=== PATIENT | female | born 1950 | race Caucasian/White ===

== ENCOUNTER 2020-10-15 10:20 | Observation (INO) | payer MEDICARE, SELFPAY ==
[2020-10-15] VITALS (9 sets, daily range): BP systolic 105–140; BP diastolic 58–69; PULSE 65–79; RESP 14–18; TEMP 36–36.5; O2SAT 98–100; BMI 27.6
--- NOTE | 2020-10-15 11:26 | ECG_ITS ---
Measurements Intervals Zearing Rate: 65 P: 24 DC: 128 QRS: 39 QRSD: 117 T: 62 QT: 414 QTc: 433 Interpretive Statements SINUS RHYTHM INTRAVENTRICULAR CONDUCTION DELAY CONSIDER INFERIOR INFARCT, AGE INDETERMINATE ST-T WAVE ABNORMALITY IN LAT/HIGH LAT LEADS- CONSIDER ISCHEMIA BASELINE ARTIFACT- I, III, AVL ABNORMAL ECG Electronically Signed On 10-15-2020 18:58:59 CDT by Griffin Patel D.O.
[2020-10-15 11:54] LABS: Basophils Absolute Auto 0.1 K/mm3 (0.0-0.1); Basophils Percent Auto 0.8 % (0.2-1.2); Eosinophils Absolute Auto 0.1 K/mm3 (0-0.3); Eosinophils Percent Auto 1.9 % (0-4.4); Hematocrit 39.6 % (37.0-47.0); Hemoglobin 13.4 g/dL (12.0-15.0); Immature Granulocyte Absolute 0.01 K/mm3 (0.00-0.031); Immature Granulocyte Percent A 0.2 % (0-0.5); Immature Platelet Fraction Pct 10.3 % (0.9-11.2); Lymphocytes Absolute Auto 1.34 K/mm3 (0.9-3.2); Mean Corpuscular HGB Conc 33.8 g/dl (32-36); Mean Corpuscular Hemoglobin 30.3 pg (26-34); Mean Corpuscular Volume 89.6 fl (80-100); Mean Platelet Volume 11.6 fl (7.4-10.4); Monocytes Absolute Auto 0.4 K/mm3 (0.1-0.6); Monocytes Percent Auto 6.3 % (2.6-8.5); Neutrophils Absolute Auto 4.5 K/mm3 (1.3-6.7); Neutrophils Percent Auto 69.8 % (45.5-73.1); Platelet Count Result 138 k/mm3 (150-375); Red Blood Count 4.42 M/mm3 (4.2-5.4); Red Cell Distribution Width 12.3 % (11.5-14.5); White Blood Count 6.4 K/mm3 (4.5-10.0)
[2020-10-15 12:17] LABS: Alanine Aminotransferase 33 U/L (4-35); Albumin Level 3.8 g/dL (3.5-5.1); Alkaline Phosphatase 71 U/L (38-126); Anion Gap 7 mmol/L (8-16); Aspartate Amino Transferase 70 U/L (14-36); Bilirubin,Total 0.6 mg/dL (0.2-1.3); Blood Urea Nitrogen 9 mg/dL (7-17); Carbon Dioxide 36 mmol/L (22-30); Chloride 93 mmol/L (98-107); Estimated CRCL calculation 39 ml/min; Estimated Glomerular Filt Rate 55; Glucose 125 mg/dL (65-110); Potassium 2.1 mmol/L (3.4-5.0); Sodium 136 mmol/L (137-145)
--- NOTE | 2020-10-15 12:57 | ED.GENADULT ---
HPI - General Adult General Chief complaint: Recheck/Abnormal Lab/Rx Stated complaint: low K, 2.3 Time Seen by Provider: 10/15/20 12:48 History of Present Illness HPI narrative: Patient is a 70-year-old female who presents ER with weakness and abnormal labs. She has been feeling weak for the last 2 weeks. She gets occasional muscle cramps in her hands. She takes Lasix for CHF. She does not take any potassium at home. Outpatient labs 2 days ago showed a potassium level of 2.3. She was unable to make her way to the ER until today. She has no chest pain or chest pressure. No shortness of breath. No loss of consciousness or palpitations. Related Data Home Medications Medication Instructions Recorded Confirmed albuterol sulfate See Rx Instructions .ROUTE .COMPLEX 10/15/20 10/15/20 alprazolam 1 mg PO TID PRN 10/15/20 10/15/20 furosemide 40 mg PO DAILY 10/15/20 10/15/20 losartan 50 mg PO DAILY 10/15/20 10/15/20 metoprolol succinate 50 mg PO DAILY 10/15/20 10/15/20 tramadol 50 mg PO BID PRN 10/15/20 10/15/20 Allergies Allergy/AdvReac Type Severity Reaction Status Date / Time codeine Allergy Vomiting Verified 10/15/20 15:55 Sulfa (Sulfonamide Allergy Hives Verified 10/15/20 15:55 Antibiotics) Review of Systems Review of Systems: All systems reviewed & are unremarkable except as noted in HPI and below Constitutional: Constitutional: Denies chills, Reports fatigue, Denies fever(s) and Reports weakness ENT: Denies nasal congestion and Denies sore throat Cardiovascular: Cardiovascular: Denies chest pain, Denies rapid heart rate and Denies radiating jaw, neck or arm pain Respiratory: Respiratory: Denies cough and Denies dyspnea Gastrointestinal: Gastrointestinal: Denies abdominal pain, Denies diarrhea, Denies nausea and Denies vomiting Musculoskeletal: Musculoskeletal: Denies arthralgias, Denies joint swelling and Reports muscle cramps PMF Past Medical History Medical History (Updated 10/15/20 @ 23:16 by Isaac Butts MD) Anxiety 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 Bilateral cataracts Maturing Congestive heart failure COPD with chronic bronchitis and emphysema Degenerative disc disease History of anemia History of small bowel obstruction Hyperlipidemia Hypertension Tobacco abuse Surgical History Surgical History (Updated 10/15/20 @ 16:42 by Jennifer Mcekon NP) H/O bladder repair surgery X3 H/O colonoscopy with polypectomy The patient stated that she had 16 polyps removed at 1 time H/O hernia repair History of cholecystectomy History of colectomy History of hysterectomy Family History Family History (Updated 10/15/20 @ 16:44 by Jennifer Mckeon NP) Father History of open heart surgery Sibling History of open heart surgery Sibling H/O heart artery stent Pancreatic cancer Mother Heart disease CHF (congestive heart failure) COPD (chronic obstructive pulmonary disease) Social History Social History (Updated 10/15/20 @ 16:46 by Jennifer Mckeon NP) Social History: The patient continues to smoke a half a pack a cigarettes a day for 54 years. She lives with her brother and [id number]. The patient has 2 children. The patient is . The patient was essentially a homemaker. The patient smokes marijuana 2 to 3 times a week. The patient denies any alcohol or illicit drugs. The patient desires to be a full code and chooses her brother to be the durable power civil attorney for healthcare. The patient does not want to live in a vegetative state and she states her brother is aware of this. Smoking packs per day: 0.5 Smoking cigarettes per day: 10.0 Years smoked: 54 Smoking pack-years: 27.00 Smoking status: Current every day smoker Tobacco type: cigarettes Alcohol intake: never Substance use type: marijuana Other substance usage details: 2-3 times a week Spiritual care concerns: No Exam Narrative: GENERAL: Well-appearing, we
[2020-10-15] MEDS: POTASSIUM CHLORIDE 20 MEQ TABLET 40 MEQ PO (13:26)
[2020-10-15 15:14] LABS: Magnesium 1.9 mg/dL (1.6-2.3)
--- NOTE | 2020-10-15 15:40 | ADMGEN ---
This patient, Regina Mason, was admitted to Medical Room 250-01. Patient/family oriented to hospital policies and general routines including ID bracelet, bed and alarms, visiting hours, pain management, procedures, bathroom and other care routines, personal items, smoking policy, room service/diet, and visiting hours. Information on how to activate the Rapid Response Team has been discussed. Patient/Family are encouraged to report perceived risks to care and to ask questions if they do not understand what they are told or what they should do.
--- NOTE | 2020-10-15 16:35 | PM.IMHP ---
H&P: HPI History of Present Illness Date/Time: 10/15/20 16:35 this is a 70-year-old female patient who has a past medical history of having emphysema with COPD and congestive heart failure. The patient has been taking Lasix at home without any potassium supplement. The patient stated that she has been feeling weak for the last 2 weeks. She occasionally has some muscle cramps in her hands. The patient had labs drawn 2 days ago and it was showing that she had a level of 2.3 at that time. The patient was not able to make her way to the emergency room until today. The patient is not having any chest pain or chest pressure. She is not short of breath. She has no syncopal episode palpitations. Her potassium was found to be 2.1 and magnesium was 1.9. The patient was supplemented with potassium in the emergency room. The patient was admitted to medical telemetry and placed in observation status on the date of service of 10/15/2020. Chief Complaint: Abnormal lab Review of Systems Review of Systems: All systems reviewed & are unremarkable except as noted in HPI and below Constitutional: Constitutional: Reports as per HPI and Reports no additional constitutional complaints Eyes: Eyes: Reports as per HPI and Reports no additional eye complaints ENT: Reports system reviewed and no additional complaints, except as documented and Reports Normal hearing present Cardiovascular: Cardiovascular: Reports no additional cardiovascular complaints Respiratory: Respiratory: Reports no additional respiratory complaints and Reports no additional respiratory complaints Gastrointestinal: Gastrointestinal: Reports as per HPI and Reports no additional gastrointestinal complaints Musculoskeletal: Musculoskeletal: Reports no additional musculoskeletal complaints Integumentary/Breasts: Skin/Breast: Reports system reviewed and no additional complaints, except as docu and Reports as per HPI Neurologic: Reports system reviewed and no additional complaints, except as documented, Reports as per HPI and Reports Normal hearing present Psychiatric: Psychiatric: Reports no additional psychiatric complaints and Reports as per HPI Endocrine: Endocrine: Reports no additional endocrine complaints Hematologic/Lymphatic: Hematologic/Lymphatic: Reports no additional hematologic/lymphatic complaints Allergic/Immunologic: Allergic/Immunologic: Reports no additional allergic/immunologic complaints [facility] Past Medical History Medical History (Updated 10/15/20 @ 16:54 by Jennifer Mckeon NP) Anxiety 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 Bilateral cataracts Maturing Congestive heart failure COPD with chronic bronchitis and emphysema Degenerative disc disease History of anemia History of small bowel obstruction Hyperlipidemia Hypertension Tobacco abuse Surgical History Surgical History (Updated 10/15/20 @ 16:42 by Jennifer Mckeon NP) H/O bladder repair surgery X3 H/O colonoscopy with polypectomy The patient stated that she had 16 polyps removed at 1 time H/O hernia repair History of cholecystectomy History of colectomy History of hysterectomy Family History Family History (Updated 10/15/20 @ 16:44 by Jennifer Mckeon NP) Father History of open heart surgery Sibling History of open heart surgery Sibling H/O heart artery stent Pancreatic cancer Mother Heart disease CHF (congestive heart failure) COPD (chronic obstructive pulmonary disease) Social History Social History (Updated 10/15/20 @ 16:46 by Jennifer Mckeon NP) Social History: The patient continues to smoke a half a pack a cigarettes a day for 54 years. She lives with her brother and [id number]. The patient has 2 children. The patient is . The patient was essentially a homemaker. The patient smokes marijuana 2 to 3 times a week. The patient denies any alcohol or illicit drugs. The patient desires to be a full code and chooses her brother to be the dur
[2020-10-15] MEDS: POTASSIUM CHLORIDE 20 MEQ TABLET.ER PO (16:39)
[2020-10-15] MEDS: NICOTINE (*PBKC) 14 MG PATCH 1 PATCH TRANSDERM (17:25)
[2020-10-15 21:31] LABS: Anion Gap 7 mmol/L (8-16); Blood Urea Nitrogen 9 mg/dL (7-17); Calcium 8.6 mg/dL (8.4-10.2); Carbon Dioxide 35 mmol/L (22-30); Chloride 94 mmol/L (98-107); Estimated CRCL calculation 43 ml/min; Estimated Glomerular Filt Rate > 60; Glucose 158 mg/dL (65-110); Potassium 2.8 mmol/L (3.4-5.0); Sodium 136 mmol/L (137-145)
[2020-10-15] MEDS: POTASSIUM CHLORIDE 20 MEQ PACKET (FOR LIQUID) 80 MEQ PO (21:50)
[2020-10-16] VITALS (8 sets, daily range): BP systolic 131–157; BP diastolic 56–79; PULSE 70–85; RESP 16–18; TEMP 36–36.6; O2SAT 98–99
[2020-10-16 05:10] LABS: Basophils Percent Auto 0.4 % (0.2-1.2); Eosinophils Absolute Auto 0.1 K/mm3 (0-0.3); Eosinophils Percent Auto 1.9 % (0-4.4); Hematocrit 36.9 % (37.0-47.0); Hemoglobin 12.5 g/dL (12.0-15.0); Immature Granulocyte Absolute 0.01 K/mm3 (0.00-0.031); Immature Granulocyte Percent A 0.2 % (0-0.5); Immature Platelet Fraction Pct 7.7 % (0.9-11.2); Lymphocytes Percent Auto 27.8 % (18.3-44.2); Mean Corpuscular HGB Conc 33.9 g/dl (32-36); Mean Corpuscular Hemoglobin 30.9 pg (26-34); Mean Corpuscular Volume 91.1 fl (80-100); Mean Platelet Volume 11.7 fl (7.4-10.4); Monocytes Absolute Auto 0.3 K/mm3 (0.1-0.6); Monocytes Percent Auto 6.9 % (2.6-8.5); Neutrophils Absolute Auto 2.9 K/mm3 (1.3-6.7); Neutrophils Percent Auto 62.8 % (45.5-73.1); Platelet Count Result 120 k/mm3 (150-375); Red Blood Count 4.05 M/mm3 (4.2-5.4); Red Cell Distribution Width 12.4 % (11.5-14.5); White Blood Count 4.7 K/mm3 (4.5-10.0)
[2020-10-16 05:35] LABS: Lactic Acid Reflex 1.8 mmol/L (0.7-2.1)
[2020-10-16 05:39] LABS: Alanine Aminotransferase 27 U/L (4-35); Albumin Level 3.4 g/dL (3.5-5.1); Alkaline Phosphatase 65 U/L (38-126); Anion Gap 7 mmol/L (8-16); Aspartate Amino Transferase 54 U/L (14-36); Bilirubin,Total 0.5 mg/dL (0.2-1.3); Blood Urea Nitrogen 8 mg/dL (7-17); Carbon Dioxide 30 mmol/L (22-30); Chloride 103 mmol/L (98-107); Estimated CRCL calculation 43 ml/min; Estimated Glomerular Filt Rate > 60; Glucose 127 mg/dL (65-110); Magnesium 2.2 mg/dL (1.6-2.3); Potassium 3.7 mmol/L (3.4-5.0); Sodium 140 mmol/L (137-145)
[2020-10-16] MEDS: LOSARTAN POTASSIUM 50 MG TABLET PO (08:36)
[2020-10-16] MEDS: POTASSIUM CHLORIDE 20 MEQ TABLET.ER PO ×2 (08:36→16:43)
[2020-10-16] MEDS: METOPROLOL SUCCINATE EXT REL 50 MG TABCR PO (08:36)
[2020-10-16] MEDS: ENOXAPARIN 40 MG/0.4 ML SYRINGE SUB-Q (08:36)
[2020-10-16] MEDS: NICOTINE (*PBKC) 14 MG PATCH 1 PATCH TRANSDERM (09:28)
[2020-10-16 11:16] LABS: Free T4 Free Thyroxine Reflex 1.15 ng/dL (0.78-2.19)
--- NOTE | 2020-10-16 13:27 | PM.IMPN ---
Progress Note: A&P Assessment and Plan (1) Hypokalemia: Code(s): E87.6 - Hypokalemia Status: Acute Assessment and Plan: potassium replaced likely due to diuretics On supplementation Magnesium is normal Recheck labs in morning. Potassium was as low as 2.1 last week (2) COPD with chronic bronchitis and emphysema: Code(s): J44.9 - Chronic obstructive pulmonary disease, unspecified Status: Chronic Assessment and Plan: Continue with home medications. (3) Hypertension: Code(s): I10 - Essential (primary) hypertension Status: Chronic Assessment and Plan: Continue with home medications. (4) Hyperlipidemia: Code(s): E78.5 - Hyperlipidemia, unspecified Status: Chronic Assessment and Plan: Continue with home medications. (5) Congestive heart failure: Code(s): I50.9 - Heart failure, unspecified Status: Chronic Assessment and Plan: Continue with home medications. On Lasix 40 mg a day without potassium supplement (6) Degenerative disc disease: Status: Chronic Assessment and Plan: Continue with home medications. (7) Diarrhea: Code(s): R19.7 - Diarrhea, unspecified Status: Acute Assessment and Plan: will monitor if worsening will send stool studies Subjective Date/time seen: 10/16/20 13:27 Interval history: HPI: This is a 70-year-old female patient who has a past medical history of having emphysema with COPD and congestive heart failure. The patient has been taking Lasix at home without any potassium supplement. The patient stated that she has been feeling weak for the last 2 weeks. She occasionally has some muscle cramps in her hands. The patient had labs drawn 2 days ago and it was showing that she had a level of 2.3 at that time. The patient was not able to make her way to the emergency room until today. The patient is not having any chest pain or chest pressure. She is not short of breath. She has no syncopal episode palpitations. Her potassium was found to be 2.1 and magnesium was 1.9. The patient was supplemented with potassium in the emergency room. The patient was admitted to medical telemetry and placed in observation status on the date of service of 10/15/2020. Interval history:Complains of some crampy abdominal pain with diarrhea last evening had 2 episodes since then doing okay currently no fever chills she had been prescribed potassium in the past which she did not fill Review of Systems Review of Systems: All systems reviewed & are unremarkable except as noted in HPI and below Exam Narrative: GENERAL: Well-appearing, well-nourished, and in no acute distress. HEAD: Normocephalic, atraumatic. EYES: PERRL and EOMI. CHEST: Clear to auscultation. No respiratory distress. HEART: Regular rate and rhythm. Normal peripheral pulses. ABDOMEN: Soft, nontender, nondistended. EXTREMITIES: Normal range of motion. No edema. NEURO: Alert and oriented x3. PSYCH: Normal mood and affect. Objective Data Vital Signs Vital Signs: Vital Signs - 24 hr 10/15/20 15:40 10/15/20 16:13 10/15/20 20:00 Temperature 97.7 F Pulse Rate 76 70 79 Respiratory Rate 18 Blood Pressure 127/69 Pulse Oximetry 99 10/15/20 21:11 10/16/20 00:00 10/16/20 04:00 Temperature 96.8 F L Pulse Rate 77 75 70 Respiratory Rate 18 Blood Pressure 105/66 Pulse Oximetry 98 10/16/20 05:47 10/16/20 08:00 10/16/20 08:36 Temperature 97.8 F Pulse Rate 76 85 81 Respiratory Rate 16 Blood Pressure 157/56 H Pulse Oximetry 98 Intake/Output Intake/Output: Intake & Output 10/13/20 10/14/20 10/15/20 10/16/20 23:59 23:59 23:59 23:59 Intake Total 740 720 Output Total 0 Balance 740 720 Meds/Results Medications: Active Medications Generic Name Dose Route Start Last Admin Trade Name Freq PRN Reason Stop Dose Admin Acetaminophen 650 mg 10/15/20 14:16 Acetaminophen 32
[2020-10-16] MEDS: ACETAMINOPHEN 325 MG TABLET 650 MG PO (14:19)
[2020-10-16 19:22] LABS: Total Triiodothyronine (T3) 1.76 NG/ML (0.97-1.69)
[2020-10-16] MEDS: ONDANSETRON INJ 4 MG/2 ML VIAL IV PUSH (21:21)
[2020-10-17 06:00] VITALS: BP 113/68; PULSE 69; RESP 16; TEMP 36.6; O2SAT 97
[2020-10-17 06:14] LABS: Basophils Percent Auto 0.9 % (0.2-1.2); Eosinophils Absolute Auto 0.1 K/mm3 (0-0.3); Hematocrit 37.5 % (37.0-47.0); Hemoglobin 12.3 g/dL (12.0-15.0); Immature Granulocyte Absolute 0.02 K/mm3 (0.00-0.031); Immature Granulocyte Percent A 0.4 % (0-0.5); Lymphocytes Absolute Auto 1.23 K/mm3 (0.9-3.2); Lymphocytes Percent Auto 26.6 % (18.3-44.2); Mean Corpuscular HGB Conc 32.8 g/dl (32-36); Mean Corpuscular Hemoglobin 30.4 pg (26-34); Mean Corpuscular Volume 92.6 fl (80-100); Mean Platelet Volume 11.9 fl (7.4-10.4); Monocytes Absolute Auto 0.3 K/mm3 (0.1-0.6); Monocytes Percent Auto 6.7 % (2.6-8.5); Neutrophils Absolute Auto 2.9 K/mm3 (1.3-6.7); Neutrophils Percent Auto 62.4 % (45.5-73.1); Platelet Count Result 106 k/mm3 (150-375); Red Blood Count 4.05 M/mm3 (4.2-5.4); Red Cell Distribution Width 12.5 % (11.5-14.5); White Blood Count 4.6 K/mm3 (4.5-10.0)
[2020-10-17 06:25] LABS: Anion Gap 8 mmol/L (8-16); Blood Urea Nitrogen 7 mg/dL (7-17); Calcium 8.9 mg/dL (8.4-10.2); Carbon Dioxide 29 mmol/L (22-30); Chloride 102 mmol/L (98-107); Estimated CRCL calculation 43 ml/min; Estimated Glomerular Filt Rate > 60; Glucose 121 mg/dL (65-110); Potassium 3.6 mmol/L (3.4-5.0); Sodium 139 mmol/L (137-145)
[2020-10-17] MEDS: ENOXAPARIN 40 MG/0.4 ML SYRINGE SUB-Q (08:47)
[2020-10-17 08:48] VITALS: PULSE 76
[2020-10-17] MEDS: POTASSIUM CHLORIDE 20 MEQ TABLET.ER PO (08:48)
[2020-10-17] MEDS: METOPROLOL SUCCINATE EXT REL 50 MG TABCR PO (08:48)
[2020-10-17] MEDS: LOSARTAN POTASSIUM 50 MG TABLET PO (08:48)
[2020-10-17] MEDS: NICOTINE (*PBKC) 14 MG PATCH 1 PATCH TRANSDERM (08:49)
--- NOTE | 2020-10-17 09:06 | PM.DS ---
DS: Admitting Diagnosis Discharge Date 10/17/2020 Admitting Diagnosis hypokalemia DS: Discharge Diagnosis Discharge Diagnosis (1) Hypokalemia: Code(s): E87.6 - Hypokalemia Status: Acute Assessment and Plan: potassium depled likely due to diuretics On supplementation started. Magnesium is normal Potassium was as low as 2.1 last week discharge k level 3.6. will lower lasix to 20 m daliy . fu in a week with pcp for futher adjustment. labs in 1 weeks. (2) COPD with chronic bronchitis and emphysema: Code(s): J44.9 - Chronic obstructive pulmonary disease, unspecified Status: Chronic Assessment and Plan: Continue with home medications.not in exacerbation (3) Hypertension: Code(s): I10 - Essential (primary) hypertension Status: Chronic Assessment and Plan: Continue with home medications. (4) Hyperlipidemia: Code(s): E78.5 - Hyperlipidemia, unspecified Status: Chronic Assessment and Plan: Continue with home medications. (5) Congestive heart failure: Code(s): I50.9 - Heart failure, unspecified Status: Chronic Assessment and Plan: Continue with home medications. On Lasix 40 mg a day without potassium supplement no leg swellin evident. likely diastolic. echo report not available. will lower lasix to 20 m daily. further adjsutment as op basis as needed (6) Degenerative disc disease: Status: Chronic Assessment and Plan: Continue with home medications. (7) Diarrhea: Code(s): R19.7 - Diarrhea, unspecified Status: Acute Assessment and Plan: few episodes durig thospital stay, resolves spontaneously. (8) Thrombocytopenia: Code(s): D69.6 - Thrombocytopenia, unspecified Status: Acute Assessment and Plan: mild durig hospital stay. no bleeding. recheck in a week to ensure stability DS: Summary Hospital Course Hospital Course: see above Time Spent with Patient Time attestation: Total time spent providing and/or coordinating discharge services:35 mins Exam Narrative: GENERAL: Well-appearing, well-nourished, and in no acute distress. HEAD: Normocephalic, atraumatic. EYES: PERRL and EOMI. CHEST: Clear to auscultation. No respiratory distress. HEART: Regular rate and rhythm. Normal peripheral pulses. ABDOMEN: Soft, nontender, nondistended. EXTREMITIES: Normal range of motion. No edema. NEURO: Alert and oriented x3. PSYCH: Normal mood and affect. DS: Data Data Completed and Pending Labs on day of discharge: Labs from last 24 hours 10/17/20 10/17/20 10/16/20 04:34 04:34 04:42 WBC 4.6 RBC 4.05 L Hgb 12.3 Hct 37.5 MCV 92.6 MCH 30.4 MCHC 32.8 RDW 12.5 Plt Count 106 L MPV 11.9 H Immature Gran % (Auto) 0.4 Neut % (Auto) 62.4 Lymph % (Auto) 26.6 Garrett % (Auto) 6.7 Eos % (Auto) 3.0 Baso % (Auto) 0.9 Lymph # (Auto) 1.23 Garrett # (Auto) 0.3 Eos # (Auto) 0.1 Baso # (Auto) 0.0 Abs Immat Gran (auto) 0.02 Absolute Neuts (auto) 2.9 Absolute Nucleated RBC 0.0 Nucleated RBC % 0.0 Sodium 139 Potassium 3.6 Chloride 102 Carbon Dioxide 29 Anion Gap 8 BUN 7 Creatinine 0.90 Estim Creat Clear Calc 43 Estimated GFR > 60 Glucose 121 H Calcium 8.9 TSH (Reflex) Free T4 Total T3 1.76 H 10/16/20 10/16/20 04:42 04:42 WBC RBC Hgb Hct MCV MCH MCHC RDW Plt Count MPV Immature Gran % (Auto) Neut % (Auto) Lymph % (Auto) Garrett % (Auto) Eos % (Auto) Baso % (Auto) Lymph # (Auto) Garrett # (Auto) Eos # (Auto) Baso # (Auto) Abs Immat Gran (auto) Absolute Neuts (auto) Absolute Nucleated RBC Nucleated RBC % Sodium Potassium Chloride Carbon Dioxide Anion Gap BUN Creatinine Estim Creat Clear Calc Estimated GFR Glucose Calcium TSH (Reflex) 6.500 H Free T4 1.15 Total T3
== END 2020-10-17 11:39 | disposition home or self-care (01) ==
LOC: ANHED 12:48 → ANH2MED 16:31
PROVIDERS: Emergency Medicine; Nurse Practitioner; Admitting Provider Family Medicine; Emergency Provider Emergency Medicine; PCP Family Medicine; Visit Provider Internal Medicine
DX: E87.6 Hypokalemia (principal); R53.1 Weakness; I11.0 Hypertensive heart disease with heart failure; I50.9 Heart failure, unspecified; E78.5 Hyperlipidemia, unspecified; J44.9 Chronic obstructive pulmonary disease, unspecified; R19.7 Diarrhea, unspecified; D69.6 Thrombocytopenia, unspecified; F41.9 Anxiety disorder, unspecified; Z79.51 Long term (current) use of inhaled steroids; F17.210 Nicotine dependence, cigarettes, uncomplicated; F12.90 Cannabis use, unspecified, uncomplicated
CPT/HCPCS: 36415; 80048; 80053; 83605; 83735; 84439; 84443; 84480; 85025; 85055; 93005; 96365; 96366; 96372; 96375; 99285; A9270; G0378; J1650; J2405; J3480

== ENCOUNTER 2024-01-28 11:03 | Inpatient (IN) | payer MEDICARE, SELFPAY ==
--- NOTE | ~2024-01-28 | CT_ITS ---
EXAMINATION: CT abdomen pelvis wo con DATE: 02/07/2024 10:51 INDICATION: Abdominal distention. Perisigmoid abscess. TECHNIQUE: Computed tomography (CT) of the abdomen and pelvis was performed without intravenous contr ast. Automated exposure control and iterative reconstruction technique were employed. The dose-length product was 563.58 mGy-cm. COMPARISON: None FINDINGS: Small bilateral pleural effusions with dependent compressive atelectasis in the bilateral lower lobes . Calcified left lower lobe nodule consistent with old granulomatous disease. Heart size is normal. U nchanged small pericardial effusion. Atherosclerotic coronary artery calcifications. Nodular cirrhoti c liver with small amount of perihepatic ascites. Persistent small amount of pneumobilia likely relat ed to prior cholecystectomy sphincterotomy. 1.5 cm peripherally calcified lesion with low signal on p rior MRI at the gallbladder fossa which could represent a dropped gallstone, heterotopic ossicle or c alcified granuloma. Unchanged 1.2 cm cystic lesion at the body the pancreas. A couple small splenic c alcifications consistent with old granulomatous disease. Bilateral adrenal glands are normal. There a re bilateral renal cysts measuring up to 2.6 cm in the left kidney and including a 2 cm exophytic pro teinaceous/hemorrhagic cyst at the right kidney without significant difference in attenuation on the current noncontrast and prior postcontrast imaging but with typical T1 and T2 signal characteristics on prior MRI. There are several diverticula along the sigmoid colon. No surrounding inflammatory stra nding to suggest acute diverticulitis. An earlier perisigmoid abscess has resolved. No bowel obstruct ion. Bladder is normal. The uterus is not identified and has likely been surgically resected. Minimal additional free fluid in the deep pelvis. No free intraperitoneal gas. Small fat-containing right sp igelian hernia. No change in chronic T12 and L3 burst fractures and L5 compression fracture. IMPRESSION: 1. Interval resolution of the recent sigmoid diverticulitis as well as of the prior perisigmoid absce ss. No acute intra-abdominal/pelvic process. 2. Cirrhosis with minimal ascites. 3. Small bilateral pleural effusions with dependent compressive atelectasis in bilateral lower lobes. 4. Persistent small pericardial effusion. Reviewed, dictated and finalized at location B. OUND SALES REPRESENTATIVE IMPRESSION: 1. Interval resolution of the recent sigmoid diverticulitis as well as of the p rior perisigmoid abscess. No acute intra-abdominal/pelvic process. 2. Cirrhosis with minimal ascites. 3. Small bilateral pleural effusions with dependent compressive atelectasis in bilateral lower lobes. 4. Persistent small pericardial effusion.
--- NOTE | ~2024-01-28 | CT_ITS ---
EXAMINATION: CT abdomen pelvis wo/w con DATE: 02/04/2024 08:09 INDICATION: Right kidney mass. TECHNIQUE: Computed tomography (CT) of the abdomen and pelvis was performed without and with 100 mL O mnipaque 350 intravenous contrast. Automated exposure control and iterative reconstruction technique were employed. The dose-length product was 1057.26 mGy-cm. COMPARISON: CT abdomen and pelvis 01/28/2024 FINDINGS: The visualized portions of lung bases demonstrate mild atelectasis. A calcified left lung n odule is consistent with old granulomatous disease. There are small pleural effusions. The heart size is normal. There are coronary artery calcifications. There is a small pericardial effusion. The live r demonstrates a nodular surface contour, consistent with cirrhosis. Pneumobilia is noted, likely sec ondary to sphincterotomy. There is a gallstone in the gallbladder. There is a geographic area of subt le hypoenhancement in the spleen with interval improvement. There is a 14 mm cyst in the body of the pancreas. Right adrenal gland is normal. There is a 12 mm mass in left adrenal gland. There is a 2.3 cm hemorrhagic cyst in right kidney. There are cysts in the kidneys measuring up to 2.9 cm on the lef t. There is cortical thinning in the kidneys. There is calcified atherosclerosis of the aorta and man y of the other arteries. There is diverticulosis of the colon. The perisigmoid abscess has resolved. There is soft tissue attenuation connecting the sigmoid colon and vagina suspicious for fistula. Ther e are no dilated loops of bowel. The appendix is not visualized. There is a small sliding hiatal ken ia. There are no pathologically enlarged lymph nodes. There is a small volume of ascites. There is a right-sided spigelian hernia containing fat. There is a burst fracture of T12 with 1/5 loss of height . There is a chronic burst fracture of L3. There is a chronic compression fracture of L5. There is mi ld lumbar spondylosis. IMPRESSION: 1. 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 2. Cirrhosis of the liver. 3. 2.3 cm hemorrhagic cyst in right kidney. 4. Small pleural effusions. 5. 14 mm cystic lesion of the pancreas. The differential diagnosis includes pseudocyst, intraductal p apillary mucinous neoplasm (IPMN), mucinous cystic neoplasm (MCN), serous cystadenoma, and neuroendoc rine tumor. Consider abdomen MRI without and with contrast in 2 years. 6. Geographic area of subtle hypoenhancement in the spleen with interval improvement, consistent with subacute infarct. 7. Small volume of ascites. 8. Acute T12 burst fracture, new from 01/28/2024. 9. Worsened small pericardial effusion. Reviewed, dictated and finalized at location [] ER OPERATOR [employer]BESTOS SHINGLE IMPRESSION: 1. 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 2. Cirrhosis of the liver. 3. 2.3 cm hemorrhagic cyst in right kidney. 4. Small pleural effusions. 5. 14 mm cystic lesion of the pancreas. The differential diagnosis includes pse udocyst, intraductal papillary mucinous neoplasm (IPMN), mucinous cystic neopla sm (MCN), serous cystadenoma, and neuroendocrine tumor. Consider abdomen MRI wi thout and with contrast in 2 years. 6. Geographic area of subtle hypoenhancement in the spleen with interval improv ement, consistent with subacute infarct. 7. Small volume of ascites. 8. Acute T12 burst fracture, new from 01/28/2024. 9. Worsened small pericardial effusion.
--- NOTE | ~2024-01-28 | CT_ITS ---
EXAMINATION: CT abdomen pelvis w con DATE: 01/28/2024 13:30 INDICATION: Abdominal pain. Diarrhea. Fever. TECHNIQUE: Computed tomography (CT) of the abdomen and pelvis was performed with 100 mL Omnipaque 350 intravenous contrast. Automated exposure control and iterative reconstruction technique were employe d. The dose-length product was 327.53 mGy-cm. COMPARISON: None. FINDINGS: A calcified left lung nodule is consistent with old granulomatous disease. No pleural effus ion. The heart size is normal. There is a trace pericardial effusion. There are coronary artery calci fications. No pericardial effusion. The liver demonstrates surface nodularity, consistent with cirrho sis. There is an infarct in the spleen. Volume loss suggests this finding is subacute. There is a 12 mm cystic lesion in the pancreas. Right adrenal gland is normal. There is a 12 mm mass in left adrena l gland. There are cysts in the kidneys measuring up to 2.5 cm on the left. There is a 2.3 cm mass in right kidney measuring soft tissue attenuation. There are scattered diverticula in the colon. There is a 2.8 x 2.3 x 3.2 cm perisigmoid abscess abutting the vagina. The appendix is not visualized. Ther e is calcified atherosclerosis of the aorta and many of the other arteries. There is severe stenosis of right renal artery. There are no pathologically enlarged lymph nodes. There is no free intraperito juju fluid. There are chronic burst fractures of L3 and L5. IMPRESSION: 1. 2.8 x 2.3 x 3.2 cm perisigmoid abscess abutting the vagina. 2. Cirrhosis of the liver. 3. Splenic infarct, which may be subacute. 4. 12 mm cystic lesion of the pancreas. The differential diagnosis includes pseudocyst, intraductal p apillary mucinous neoplasm (IPMN), mucinous cystic neoplasm (MCN), serous cystadenoma, and neuroendoc rine tumor. Consider abdomen MRI without and with contrast in 2 years. 5. 2.3 cm right kidney mass, which may be a hemorrhagic cyst, but renal cell carcinoma cannot be excl uded. Abdomen CT without and with contrast is recommended. Reviewed, dictated and finalized at location A. ENSATION BUSINESS PARTNER IMPRESSION: 1. 2.8 x 2.3 x 3.2 cm perisigmoid abscess abutting the vagina. 2. Cirrhosis of the liver. 3. Splenic infarct, which may be subacute. 4. 12 mm cystic lesion of the pancreas. The differential diagnosis includes pse udocyst, intraductal papillary mucinous neoplasm (IPMN), mucinous cystic neopla sm (MCN), serous cystadenoma, and neuroendocrine tumor. Consider abdomen MRI wi thout and with contrast in 2 years. 5. 2.3 cm right kidney mass, which may be a hemorrhagic cyst, but renal cell ca rcinoma cannot be excluded. Abdomen CT without and with contrast is recommended .
--- NOTE | ~2024-01-28 | MR_ITS ---
EXAMINATION: MR abdomen wo con DATE: 02/03/2024 12:40 INDICATION: Pancreatic mass TECHNIQUE: Magnetic resonance imaging (MRI) of the abdomen was performed without intravenous contrast . Sequences included coronal T2-weighted SS-FSE, coronal T2-weighted FS SS-FSE, coronal T2-weighted F S FIESTA, axial T2-weighted FS FIESTA, axial T2-weighted FIESTA, sagittal T2-weighted SS-FSE, axial T 1-weighted dual-echo FSPGR, axial T2-weighted SS-FSE, axial T1-weighted LAVA, axial T2-weighted STIR FSE. Thick-slab T2-weighted FRFSE-XL images were obtained for magnetic resonance cholangiopancreatogr aphy (MRCP). Rotating maximum intensity projection 3-D reconstructions of the volumetric data were cr eated by the technologist. COMPARISON: CT dated 01/28/2024 FINDINGS: ABDOMEN MRI: Small bilateral posterior layering pleural effusions. Heart size is normal. Small pericardial effusio n with intermediate T1 and low T2 signal suggesting proteinaceous fluid. Nodular cirrhotic liver. Gal lbladder is not visualized and likely surgically absent. Spleen and bilateral adrenal glands are norm al. There are bilateral renal cysts the largest on the left measuring 2.5 cm and the largest on the r ight measuring 2.2 cm with low T2 and high T1 signal consistent with a complex proteinaceous/hemorrha gic cyst. Single appearing unilocular 1.3 cm cystic lesion at the body of the otherwise normal pancre as. Visualized portions of bowels are unremarkable. There is diffuse mesenteric, retroperitoneal and body wall edema with a small amount of ascites in the abdomen. Bladder is unremarkable in the coronal images. Chronic L3 and L5 burst fractures. There is an acute T12 superior endplate compression fract ure with linear fluid signal underlying the endplate with 10% central vertebral body height loss whic h is new since the CT from one week prior. ABDOMEN MRCP: Mild dilation of the common bile duct which measures up to 8 mm diameter which is within normal limit s post cholecystectomy. No intrahepatic ductal or ductal dilation. No intraluminal filling defects to suggest choledocholithiasis. IMPRESSION: 1. Cirrhosis. 2. Mild dilation of the common bile duct to 8 mm with no intrapedicular ductal dilation or choledocho lithiasis likely related to prior cholecystectomy. 3. 12 mm unilocular simple appearing cystic lesion at the body of the pancreas. The differential diag nosis includes pseudocyst, intraductal papillary mucinous neoplasm (IPMN) and significantly less like ly mucinous cystic neoplasm (MCN),, serous cystadenoma and neuroendocrine tumor. Correlate for histor y of pancreatitis. 4. Anasarca with small bilateral pleural effusions, small amount of ascites and excessive mesenteric, retroperitoneal and body wall edema. 5. Small likely complex pericardial effusion with increased T1 and decreased T2 signal consistent wit h either hemorrhagic or proteinaceous fluid. Correlate clinically for pericarditis. 6. Acute T12 superior endplate compression fracture with 10% central vertebral body height loss, new since CT from one week prior. 7. 2.2 cm right renal lesion with increased T1 and very low T2 signal which be most consistent with a proteinaceous/hemorrhagic cyst. Reviewed, dictated and finalized at location A. ING MACHINE OPERATOR IMPRESSION: 1. Cirrhosis. 2. Mild dilation of the common bile duct to 8 mm with no intrapedicular ductal dilation or choledocholithiasis likely related to prior cholecystectomy. 3. 12 mm unilocular simple appearing cystic lesion at the body of the pancreas. The differential diagnosis includes pseudocyst, intraductal papillary mucinous neoplasm (IPMN) and significantly less likely mucinous cystic neoplasm (MCN),, serous cystadenoma and neuroendocrine tumor. Correlate for history of pancreat itis. 4. Anasarca with small bilateral pleural effusions, small amount of ascites and excessive mesenteric, retroperitoneal and body wall edema. 5. Small likely complex pericardial effusion with increased T1 and decreased T2 signal consistent with either hemorrhagic or proteinaceous fluid. Correlate cl inically for pericarditis. 6. Acute T12 superior endplate compression fracture with 10% central vertebral body height loss, new since CT from one week prior. 7. 2.2 cm right renal lesion with increased T1 and very low T2 signal which be most consistent with a proteinaceous/hemorrhagic cyst.
[2024-01-28 11:23] VITALS: BP 144/69; PULSE 100; RESP 16; TEMP 36.6; O2SAT 100
[2024-01-28 11:51] LABS: Basophils Percent Auto 0.2 % (0.2-1.2); Hematocrit 35.3 % (37.0-47.0); Hemoglobin 11.9 g/dL (12.0-15.0); Immature Granulocyte Absolute 0.03 K/mm3 (0.00-0.031); Immature Granulocyte Percent A 0.3 % (0-0.5); Immature Platelet Fraction Pct 5.4 % (0.9-11.2); Lymphocytes Absolute Auto 0.95 K/mm3 (0.9-3.2); Lymphocytes Percent Auto 8.4 % (18.3-44.2); Mean Corpuscular HGB Conc 33.7 g/dl (32-36); Mean Corpuscular Volume 91.9 fl (80-100); Mean Platelet Volume 10.5 fl (7.4-10.4); Monocytes Absolute Auto 0.8 K/mm3 (0.1-0.6); Monocytes Percent Auto 6.9 % (2.6-8.5); Neutrophils Absolute Auto 9.6 K/mm3 (1.3-6.7); Neutrophils Percent Auto 84.2 % (45.5-73.1); Platelet Count Result 123 k/mm3 (150-375); Red Blood Count 3.84 M/mm3 (4.2-5.4); Red Cell Distribution Width 12.7 % (11.5-14.5); White Blood Count 11.3 K/mm3 (4.5-10.0)
[2024-01-28 12:00] LABS: Alanine Aminotransferase 13 U/L (6-35); Albumin Level 4.1 g/dL (3.5-5.1); Alkaline Phosphatase 65 U/L (38-126); Anion Gap 7 mmol/L (4-12); Aspartate Amino Transferase 20 U/L (14-36); Bilirubin,Total 1.3 mg/dL (0.2-1.3); Blood Urea Nitrogen 17 mg/dL (7-17); Calcium 9.3 mg/dL (8.4-10.2); Carbon Dioxide 23 mmol/L (22-30); Chloride 103 mmol/L (98-107); Estimated Glomerular Filt Rate 34; Glucose 127 mg/dL (65-110); Lipase 28 U/L (23-300); Potassium 4.4 mmol/L (3.4-5.0); Sodium 133 mmol/L (137-145)
--- NOTE | 2024-01-28 12:35 | ED.ABDPAIN ---
HPI - Abdominal Pain General Chief Complaint: Abdominal Pain <Milagros Patiño APRN - Last Filed: 01/28/24 12:37> Stated Complaint: abd pain <Milagros Paitño APRN - Last Filed: 01/28/24 12:37> Time Seen by Provider: 01/28/24 12:25 <Milagros Patiño APRN - Last Filed: 01/28/24 12:37> Focused HPI: Patient is a 73-year-old female who presents to the ER with complaints of diarrhea, lower abdominal pain, emesis, fever, chills, headache for past 5 days. She reports her T-max has been 101.2. Patient reports she has been taking ibuprofen to help treat her symptoms but temperature continues to go back up. She reports she is not able to keep anything down and has decreased urine output. Patient reports she has a history of CHF and COPD. She denies any chest pain, shortness of breath, back pain. GENERAL: Well-appearing, well-nourished, and in no acute distress. HEAD: Normocephalic, atraumatic. CHEST: Clear to auscultation. ?No respiratory distress. HEART: Regular rate and rhythm.? NEURO: ?Alert and oriented x3. Patient screened in triage and initial orders placed.? ?Additional care and disposition to be based upon?diagnostic testing and treatment. <Milagros Patiño APRN - Last Filed: 01/28/24 12:37> History of Present Illness HPI narrative: Agree with above <Julianna Quintanilla MD - Last Filed: 01/29/24 20:30> Related Data Home Medications: Home Medications ?Medication ?Instructions ?Recorded ?Confirmed ?Last Taken ?Type losartan 50 mg tablet 50 mg PO DAILY 10/15/20 01/28/24 01/28/24 History metoprolol succinate 50 mg 50 mg PO DAILY 10/15/20 01/28/24 01/28/24 History tablet,extended release 24 hr rosuvastatin 20 mg tablet 20 mg PO DAILY 01/28/24 01/28/24 Unknown History <Milagros Patiño APRN - Last Filed: 01/28/24 12:37> Allergies/Adverse Reactions: Allergies Allergy/AdvReac Type Severity Reaction Status Date / Time codeine Allergy Vomiting Verified 10/15/20 15:55 Sulfa (Sulfonamide Allergy Hives Verified 10/15/20 15:55 Antibiotics) <Milagros Patiño APRN - Last Filed: 01/28/24 12:37> Review of Systems Review of Systems: All systems reviewed & are unremarkable except as noted in HPI and below <Julianna Quintanilla MD - Last Filed: 01/29/24 20:30> [facility] Past Medical History Medical History: Medical History (Updated 01/29/24 @ 20:30 by Julianna Quintanilla MD) 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 History of anemia Tobacco abuse History of small bowel obstruction Degenerative disc disease Bilateral cataracts 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 Anxiety Congestive heart failure Hyperlipidemia Hypertension <Milagros Patiño, HEEL WASHER STRINGING MACHINE OPERATOR - Last Filed: 01/28/24 12:37> Surgical History Surgical History: Surgical History History of appendectomy H/O hernia repair H/O colonoscopy with polypectomy The patient stated that she had 16 polyps removed at 1 time H/O bladder repair surgery X3 History of colectomy History of hysterectomy History of cholecystectomy <Milagros Patiño APRN - Last Filed: 01/28/24 12:37> Family History Family History: Family History Father History of open heart surgery Sibling History of open heart surgery Sibling H/O heart artery stent Pancreatic cancer Mother Heart disease CHF (congestive heart failure) COPD (chronic obstructive pulmonary disease) <Milagros Patiño APRN - Last Filed: 01/28/24 12:37> Social History Social History: Social History Social History: The patient continues to smoke a half a pack a cigarettes a day for 54 years. She lives with her brother and [id number]. The patient has 2 children. The patient is . The patient was essentially a homemaker. The patient smokes marijuana 2 to 3 times a week. The patient denies any alcohol or illicit drugs. The patient desires to be a full code and chooses her brother to be the durable power collections attorney for healthcare. The patient does not want to live in a vegetative state and she states her brother is aware of this. Smoking packs per day: 0.5 Smoking cigarettes per day: 10.0 Years smoked: 50 Smoking pack-years: 25.00 Smoking status: Current every day smoker Tobacco type: cigarettes Alcohol intake: never Substance use type: marijuana Other substance usage details: 2-3 times a week Do You Feel Safe in your Home?: Yes Lack of Transportation: No Lack of Food: Never True Current Housing: I Have Housing Concerned About Future Housing: No Difficulty Paying Gas/Electric Bills: No Difficulty Paying for Meds: No Currently Unemployed: No Education: High School Diploma/GED Difficulty w/ Childcare or Family Care: No Spiritual care concerns: No <Milagros Patiño, RASHEEDA - Last Filed: 01/28/24 12:37> Exam Narrative: GENERAL: nontoxic, no acute distress, pleasant cooperative HEAD: Normocephalic, atraumatic. EYES: PERRLA and EOMI. ENT: grossly unremarkable NECK: Supple. CHEST: Clear to auscultation. No respiratory distress. HEART: Regular rate and rhythm ABDOMEN: Soft,+ left lower quadrant tenderness without guarding or rebound EXTREMITIES: Normal range of motion SKIN: Warm, dry, no rash. NEURO: No focal deficits. Alert and oriented x3. PSYCH: Normal mood and affect. <Julianna Quintanilla MD - Last Filed: 01/29/24 20:30> Course Vital Signs Vital signs: Vital Signs Temperature 97.9 F 01/28/24 11:23 Pulse Rate 100 01/28/24 11:23 Respiratory Rate 16 01/28/24 11:23 Blood Pressure 144/69 H 01/28/24 11:23 Pulse Oximetry 100 01/28/24 11:23 Temperature 98.1 F 01/29/24 14:00 Pulse Rate 82 01/29/24 16:04 Respiratory Rate 18 01/29/24 14:00 Blood Pressure 115/50 L 01/29/24 14:00 Pulse Oximetry 100 01/29/24 14:00 Oxygen Delivery Room Air 01/28/24 19:46 <Milagros Patiño, HEEL WASHER STRINGING MACHINE OPERATOR - Last Filed: 01/28/24 12:37> Vital Signs Temperature 97.9 F 01/28/24 11:23 Pulse Rate 100 01/28/24 11:23 Respiratory Rate 16 01/28/24 11:23 Blood Pressure 144/69 H 01/28/24 11:23 Pulse Oximetry 100 01/28/24 11:23 Temperature 98.1 F 01/29/24 14:00 Pulse Rate 82 01/29/24 16:04 Respiratory Rate 18 01/29/24 14:00 Blood Pressure 115/50 L 01/29/24 14:00 Pulse Oximetry 100 01/29/24 14:00 Oxygen Delivery Room Air 01/28/24 19:46 <Julianna Quintanilla MD - Last Filed: 01/29/24 20:30> MDM - Abdominal Pain MDM Narrative Medical decision making narrative: 73-year-old female presenting with left lower abdominal pain for about the last week associated with nausea and diarrhea. Vitals within normal limits. Blood work with a white count of 11.3. RUSSELL is noted. Fluids are ongoing.CT abdomen pelvis shows a perisigmoid abscess. IV Zosyn has been ordered. Blood cultures are pending. Spoke with surgery who will follow along. Spoke with medicine is accepted for admission. Patient is agreeable this plan. <Julianna Quintanilla MD - Last Filed: 01/29/24 20:30> Differential Diagnosis Differential diagnosis: Likely abdominal pain, constipation, diverticulitis, pancreatitis and small bowel obstruction <Julianna Quintanilla MD - Last Filed: 01/29/24 20:30> Medical Records Attestation: I reviewed the patient's medical records. <Julianna Quintanilla MD - Last Filed: 01/29/24 20:30> Lab Data Attestation: I reviewed the patient's lab results. <Julianna Quintanilla MD - Last Filed: 01/29/24 20:30> Result diagrams: 01/29/24 05:27 01/29/24 05:27 <Milagros Patiño APRN - Last Filed: 01/28/24 12:37> Labs: Lab Results 01/28/24 01/28/24 Range/Units 11:42 15:28 WBC 11.3 H (4.5-10.0) K/mm3 RBC 3.84 L (4.2-5.4) M/mm3 Hgb 11.9 L (12.0-15.0) g/dL Hct 35.3 L (37.0-47.0) % MCV 91.9 (80-100) fl MCH 31.0 (26-34) pg MCHC 33.7 (32-36) g/dl RDW 12.7 (11.5-14.5) % Plt Count 123 L (150-375) k/mm3 MPV 10.5 H (7.4-10.4) fl Immature Gran % (Auto) 0.3 (0-0.5) % Neut % (Auto) 84.2 H (45.5-73.1) % Lymph % (Auto) 8.4 L (18.3-44.2) % Perkins % (Auto) 6.9 (2.6-8.5) % Eos % (Auto) 0.0 (0-4.4) % Baso % (Auto) 0.2 (0.2-1.2) % Lymph # (Auto) 0.95 (0.9-3.2) K/mm3 Perkins # (Auto) 0.8 H (0.1-0.6) K/mm3 Eos # (Auto) 0.0 (0-0.3) K/mm3 Baso # (Auto) 0.0 (0.0-0.1) K/mm3 Abs Immat Gran (auto) 0.03 (0.00-0.031) K/mm3 Absolute Neuts (auto) 9.6 H (1.3-6.7) K/mm3 Absolute Nucleated RBC 0.000 (0.0-0.012) K/mm3 Nucleated RBC % 0.0 (0.0-0.2) % % Immature Plt Fraction 5.4 (0.9-11.2) % Sodium 133 L (137-145) mmol/L Potassium 4.4 (3.4-5.0) mmol/L Chloride 103 (98-107) mmol/L Carbon Dioxide 23 (22-30) mmol/L Anion Gap 7 (4-12) mmol/L BUN 17 D (7-17) mg/dL Creatinine 1.50 H (0.7-1.0) mg/dL Estim Creat Clear Calc Not Reportable Estimated GFR 34 L (59 - ) Glucose 127 H (65-110) mg/dL Calcium 9.3 (8.4-10.2) mg/dL Total Bilirubin 1.3 (0.2-1.3) mg/dL AST 20 (14-36) U/L ALT 13 (6-35) U/L Alkaline Phosphatase 65 (38-126) U/L Total Protein 8.0 (6.3-8.2) g/dL Albumin 4.1 (3.5-5.1) g/dL Lipase 28 (23-300) U/L Urine Color Yellow (Yellow) Urine Appearance Cloudy H (Clear) Urine pH 5.5 (5.0-9.0) Ur Specific [place] 1.040 H (1.001-1.035) Urine Protein 3+ H (Negative) mg/dL Urine Glucose (UA) Negative (Negative) mg/dL Urine Ketones Negative (Negative) mg/dL Ur Blood (Man) 3+ H (Negative) Urine Nitrate Positive H (Negative) Urine Bilirubin Negative (Negative) Urine Urobilinogen 0.2 (<2.0) mg/dL Add Ur Microanalysis Reviewed Leukocyte Esterase Rfl 1+ H (Negative) RM/UL Urine RBC 3-5 H (0-2) /hpf Urine WBC 11-20 H (0-3) /hpf Ur Squamous Epith Cells Few (Few) /hpf Urine Bacteria 4+ H /hpf Urine Casts 6-10 Granular Casts Present (None) /lpf Urine Mucus Present /lpf <Milagros Patiño, HEEL WASHER STRINGING MACHINE OPERATOR - Last Filed: 01/28/24 12:37> Lab Results 01/28/24 01/28/24 Range/Units 11:42 15:28 WBC 11.3 H (4.5-10.0) K/mm3 RBC 3.84 L (4.2-5.4) M/mm3 Hgb 11.9 L (12.0-15.0) g/dL Hct 35.3 L (37.0-47.0) % MCV 91.9 (80-100) fl MCH 31.0 (26-34) pg MCHC 33.7 (32-36) g/dl RDW 12.7 (11.5-14.5) % Plt Count 123 L (150-375) k/mm3 MPV 10.5 H (7.4-10.4) fl Immature Gran % (Auto) 0.3 (0-0.5) % Neut % (Auto) 84.2 H (45.5-73.1) % Lymph % (Auto) 8.4 L (18.3-44.2) % Perkins % (Auto) 6.9 (2.6-8.5) % Eos % (Auto) 0.0 (0-4.4) % Baso % (Auto) 0.2 (0.2-1.2) % Lymph # (Auto) 0.95 (0.9-3.2) K/mm3 Perkins # (Auto) 0.8 H (0.1-0.6) K/mm3 Eos # (Auto) 0.0 (0-0.3) K/mm3 Baso # (Auto) 0.0 (0.0-0.1) K/mm3 Abs Immat Gran (auto) 0.03 (0.00-0.031) K/mm3 Absolute Neuts (auto) 9.6 H (1.3-6.7) K/mm3 Absolute Nucleated RBC 0.000 (0.0-0.012) K/mm3 Nucleated RBC % 0.0 (0.0-0.2) % % Immature Plt Fraction 5.4 (0.9-11.2) % Sodium 133 L (137-145) mmol/L Potassium 4.4 (3.4-5.0) mmol/L Chloride 103 (98-107) mmol/L Carbon Dioxide 23 (22-30) mmol/L Anion Gap 7 (4-12) mmol/L BUN 17 D (7-17) mg/dL Creatinine 1.50 H (0.7-1.0) mg/dL Estim Creat Clear Calc Not Reportable Estimated GFR 34 L (59 - ) Glucose 127 H (65-110) mg/dL Calcium 9.3 (8.4-10.2) mg/dL Total Bilirubin 1.3 (0.2-1.3) mg/dL AST 20 (14-36) U/L ALT 13 (6-35) U/L Alkaline Phosphatase 65 (38-126) U/L Total Protein 8.0 (6.3-8.2) g/dL Albumin 4.1 (3.5-5.1) g/dL Lipase 28 (23-300) U/L Urine Color Yellow (Yellow) Urine Appearance Cloudy H (Clear) Urine pH 5.5 (5.0-9.0) Ur Specific Western 1.040 H (1.001-1.035) Urine Protein 3+ H (Negative) mg/dL Urine Glucose (UA) Negative (Negative) mg/dL Urine Ketones Negative (Negative) mg/dL Ur Blood (Man) 3+ H (Negative) Urine Nitrate Positive H (Negative) Urine Bilirubin Negative (Negative) Urine Urobilinogen 0.2 (<2.0) mg/dL Add Ur Microanalysis Reviewed Leukocyte Esterase Rfl 1+ H (Negative) RM/UL Urine RBC 3-5 H (0-2) /hpf Urine WBC 11-20 H (0-3) /hpf Ur Squamous Epith Cells Few (Few) /hpf Urine Bacteria 4+ H /hpf Urine Casts 6-10 Granular Casts Present (None) /lpf Urine Mucus Present /lpf <Julianna Quintanilla MD - Last Filed: 01/29/24 20:30> Imaging Data Radiologist's impression: ITS Impressions Abdomen/Pelvis CT 01/28/24 13:31 IMPRESSION: 1. 2.8 x 2.3 x 3.2 cm perisigmoid abscess abutting the vagina. 2. Cirrhosis of the liver. 3. Splenic infarct, which may be subacute. 4. 12 mm cystic lesion of the pancreas. The differential diagnosis includes pseudocyst, intraductal papillary mucinous neoplasm (IPMN), mucinous cystic neoplasm (MCN), serous cystadenoma, and neuroendocrine tumor. Consider abdomen MRI without and with contrast in 2 years. 5. 2.3 cm right kidney mass, which may be a hemorrhagic cyst, but renal cell carcinoma cannot be excluded. Abdomen CT without and with contrast is recommended. <Milagros Patiño APRN - Last Filed: 01/28/24 12:37> ITS Impressions Abdomen/Pelvis CT 01/28/24 13:31 IMPRESSION: 1. 2.8 x 2.3 x 3.2 cm perisigmoid abscess abutting the vagina. 2. Cirrhosis of the liver. 3. Splenic infarct, which may be subacute. 4. 12 mm cystic lesion of the pancreas. The differential diagnosis includes pseudocyst, intraductal papillary mucinous neoplasm (IPMN), mucinous cystic neoplasm (MCN), serous cystadenoma, and neuroendocrine tumor. Consider abdomen MRI without and with contrast in 2 years. 5. 2.3 cm right kidney mass, which may be a hemorrhagic cyst, but renal cell carcinoma cannot be excluded. Abdomen CT without and with contrast is recommended. <Julianna Quintanilla MD - Last Filed: 01/29/24 20:30> Critical Care Time Critical Care Time Critical Care Time: Yes <Julianna Quintanilla MD - Last Filed: 01/29/24 20:30> Total Critical Care Time: 34 <Julianna Quintanilla MD - Last Filed: 01/29/24 20:30> Discharge Plan Discharge Clinical Impression: Abscess of sigmoid colon, Splenic infarct, UTI (urinary tract infection), RUSSELL (acute kidney injury) <Milagros Patiño APRN - Last Filed: 01/28/24 12:37> Patient Disposition: Still a Patient <Milagros Patiño APRN - Last Filed: 01/28/24 12:37> Condition: Stable <Milagros Patiño APRN - Last Filed: 01/28/24 12:37>
[2024-01-28] MEDS: ONDANSETRON HCL ODT 4 MG TABLET PO (13:12)
[2024-01-28 15:41] VITALS: BP 135/67; PULSE 97; RESP 20; O2SAT 100
[2024-01-28 15:42] LABS: Add Urine Microscopic? YES; Appearance Urine Cloudy (Clear); Bacteria Urine 4+ /hpf; Bilirubin Urine Negative (Negative); Blood Urine 3+ (Negative); Color Urine Yellow (Yellow); Glucose Urine UA Negative (Negative); Granular Casts Urine Present /lpf; Ketones Urine Negative (Negative); Leukocyte Esterase Ur 1+ LEU/UL (Negative); Mucus Urine Present /lpf; Need Manual Microscopic Reviewed; Nitrate Urine Positive (Negative); Protein Urine 3+ mg/dL (Negative); Squamous Epithelial Cell Urine Few /hpf (Few); Urobilinogen Urine 0.2 mg/dL (<2.0); pH Urine 5.5 (5.0-9.0)
[2024-01-28] MEDS: SODIUM CHLORIDE 0.9% IV 500 ML 999 ML IV CONT (17:15)
[2024-01-28] MEDS: ONDANSETRON INJ 4 MG/2 ML VIAL IV PUSH ×2 (17:16→22:42)
[2024-01-28] MEDS: PIPERACILLIN/TAZ 4.5G/NS 100ML 4.5 GM/100 ML BAG IVPB (17:16)
[2024-01-28] MEDS: MORPHINE SULFATE (*CRX) 4 MG/ML INJ IV PUSH ×2 (17:17→20:10)
[2024-01-28 18:21] VITALS: BP 140/42; PULSE 91; RESP 20; TEMP 36.6; O2SAT 98
[2024-01-28 18:47] VITALS: BMI 27.1
--- NOTE | 2024-01-28 18:48 | ADMGEN ---
This patient, Regina Mason, was admitted to Medical Room 249-01. Patient/family oriented to hospital policies and general routines including ID bracelet, bed and alarms, visiting hours, pain management, procedures, bathroom and other care routines, personal items, smoking policy, room service/diet, and visiting hours. Information on how to activate the Rapid Response Team has been discussed. Patient/Family are encouraged to report perceived risks to care and to ask questions if they do not understand what they are told or what they should do.
[2024-01-28 19:46] VITALS: PULSE 91; RESP 20; O2SAT 98
[2024-01-28 20:00] VITALS: PULSE 80
[2024-01-28] MEDS: SODIUM CHLORIDE 0.9% IV 1,000 ML 75 ML IV CONT (20:13)
--- NOTE | 2024-01-28 21:40 | P.HP_ITS ---
H&P: HPI History of Present Illness Date/Time: 01/28/24 21:40 Chief Complaint: Lower abdominal pain Narrative: 18-year-old female past medical history of anemia, COPD, anxiety and congestive heart failure presents the hospital with acute lower abdominal pain. Patient states the pain has been going on for the past 5 days now and she is having frequent loose bowel movements. She states that she also has headache no fever which she has been trying to treat with Tylenol however that has not helped so she came to the hospital. In the ED she was found to have leukocytosis 11.3, creatinine of 1.5 baseline of 0.9, UA showed positive for nitrates and 1+ leukocyte esterase with 4+ bacteria. CT of the abdomen and pelvis show 2.8 x 2.3 x 3.2 cm perisigmoid abscess abutting the vagina. Liver cirrhosis, splenic infarct which may be subacute. 12 mm cystic lesion on the pancreas which could be cancerous recommendations for MRI with and without contrast in the next 2 years. A 2.3 cm right kidney mass which could be a hemorrhagic cyst but could also be cancerous. A CT of the abdomen with and without contrast is recommended however at this time the patient has acute RUSSELL so we will hold off NF her kidney infection improves we can re-scanned her. Review of Systems Review of Systems: 12 systems were reviewed and are negativ e except for as per HPI. 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 Anxiety Congestive heart failure Hyperlipidemia Hypertension Surgical History Surgical History H/O hernia repair H/O colonoscopy with polypectomy The patient stated that she had 16 polyps removed at 1 time H/O bladder repair surgery X3 History of colectomy History of hysterectomy History of cholecystectomy Family History Family History Father History of open heart surgery Sibling History of open heart surgery Sibling H/O heart artery stent Pancreatic cancer Mother Heart disease CHF (congestive heart failure) COPD (chronic obstructive pulmonary disease) Social History Social History Social History: The patient continues to smoke a half a pack a cigarettes a day for 54 years. She lives with her brother and [id number]. The patient has 2 children. The patient is . The patient was essentially a homemaker. The patient smokes marijuana 2 to 3 times a week. The patient denies any alcohol or illicit drugs. The patient desires to be a full code and chooses her brother to be the durable power supervisor painting for healthcare. The patient does not want to live in a vegetative state and she states her brother is aware of this. Smoking packs per day: 0.5 Smoking cigarettes per day: 10.0 Years smoked: 50 Smoking pack-years: 25.00 Smoking status: Current every day smoker Tobacco type: cigarettes Alcohol intake: never Substance use type: marijuana Other substance usage details: 2-3 times a week Do You Feel Safe in your Home?: Yes Lack of Transportation: No Lack of Food: Never True Current Housing: I Have Housing Concerned About Future Housing: No Difficulty Paying Gas/Electric Bills: No Difficulty Paying for Meds: No Currently Unemployed: No Education: High School Diploma/GED Difficulty w/ Childcare or Family Care: No Spiritual care concerns: No Meds Home Medications and Allergies Home Medications ?Medication ?Instructions ?Recorded ?Confirmed ?Type losartan 50 mg tablet 50 mg PO DAILY 10/15/20 01/28/24 History metoprolol succinate 50 mg 50 mg PO DAILY 10/15/20 01/28/24 History tablet,extended release 24 hr furosemide 40 mg tablet 20 mg (1/2 x 40 mg) PO DAILY #30 10/17/20 01/28/24 Rx tabs potassium chloride 20 mEq 20 meq PO BID #60 tabs 10/17/20 01/28/24 Rx tablet,extended release (K-Tab) rosuvastatin 20 mg tablet 20 mg PO DAILY 01/28/24 01/28/24 History Allergies Allergy/AdvReac Type Severity Reaction Status Date / Time codeine Allergy Vomiting Verified 10/15/20 15:55 Sulfa (Sulfonamide Allergy Hives Verified 10/15/20 15:55 Antibiotics) Vital Signs Vital Signs - 24 hr 01/28/24 11:23 01/28/24 15:41 01/28/24 18:21 Temperature 97.9 F 97.8 F Pulse Rate 100 97 91 Respiratory Rate 16 20 20 Blood Pressure 144/69 H 135/67 140/42 L Pulse Oximetry 100 100 98 Oxygen Delivery 01/28/24 19:46 Temperature Pulse Rate 91 Respiratory Rate 20 Blood Pressure Pulse Oximetry 98 Oxygen Delivery Room Air Exam Narrative: General: well appearing, appears stated age. HEENT: normocephalic, atraumatic. Mucous membranes moist. EOMI, PERRLA, bilateral sclera anicteric, no conjunctival injection. Neck supple without JVD, lymphadenopathy, or bruit. Respiratory: clear to ascultation bilaterally. No rales/rhonic/wheezes. Cardiovascular: Regular rate and rhythm, normal S1-S2 upon ascultation. No murmurs, rubs, or clicks. PMI is nondisplaced, capillary refill less than 3 second. Abdomen: Soft, round, no pulsatile masses, nondistended and tender to palpation. No rebound, no guarding. No CVA tenderness, no hepatosplenomegaly. Bowel sounds present to all four quadrants. No high pitch or tinkling sounds, resonant to percussion. Extremities: No cyanosis, clubbing, or edema present. Pulses are palpable 2/2. Active ROM to all four extremities. Neuro: Alert and orientated x 4. PERRLA. Cranial nerves 2-12 intact without focal deficit. Skin: Warm, dry, and intact, without rash, erythema, or lesion. Psych: pleasant, cooperative, normal speech, normal affect, no hallucinations, no dysarthia H&P: Results Labs Labs: Short CBC 01/28/24 Range/Units 11:42 WBC 11.3 H (4.5-10.0) K/mm3 Hgb 11.9 L (12.0-15.0) g/dL Hct 35.3 L (37.0-47.0) % Plt Count 123 L (150-375) k/mm3 [facility] 01/28/24 11:42 Sodium 133 L Potassium 4.4 Chloride 103 Carbon Dioxide 23 BUN 17 D Creatinine 1.50 H Glucose 127 H Calcium 9.3 Liver Function 01/28/24 Range/Units 11:42 Total Bilirubin 1.3 (0.2-1.3) mg/dL AST 20 (14-36) U/L ALT 13 (6-35) U/L Alkaline Phosphatase 65 (38-126) U/L Albumin 4.1 (3.5-5.1) g/dL Urine //24 Range/Units 15:28 Urine Color Yellow (Yellow) Urine Appearance Cloudy H (Clear) Urine pH 5.5 (5.0-9.0) Ur Specific [place] 1.040 H (1.001-1.035) Urine Protein 3+ H (Negative) mg/dL Urine Glucose (UA) Negative (Negative) mg/dL Assessment and Plan Assessment and plan (1) Abscess of sigmoid colon: Code(s): K63.0 - Abscess of intestine Status: Acute Assessment and Plan: Surgery consulted IR consulted for possible aspiration or drain IV Zosyn NPO (2) UTI (urinary tract infection): Code(s): N39.0 - Urinary tract infection, site not specified Status: Acute Assessment and Plan: IV Zosyn Gentle IV fluids for hydration (3) RUSSELL (acute kidney injury): Code(s): N17.9 - Acute kidney failure, unspecified Status: Acute Assessment and Plan: Baseline 0.9 Gentle IV hydration Repeat BMP in the morning (4) Hyponatremia: Code(s): E87.1 - Hypo-osmolality and hyponatremia Status: Acute Assessment and Plan: Gentle IV hydration Repeat BMP in morning (5) Splenic infarct: Code(s): D73.5 - Infarction of spleen Status: Acute Assessment and Plan: Unable to do anticoagulation at this time due to possible nephrotic hematoma and IR drain tomorrow Plan to rescan patient before she leaves hospital with contrast if kidney fu nction improves (6) Congestive heart failure: Code(s): I50.9 - Heart failure, unspecified Status: Chronic Assessment and Plan: Patient appears slightly dehydrated Will do gentle hydration overnight while and p.o. Careful monitoring for acute pulmonary edema (7) Lesion of pancreas: Code(s): K86.9 - Disease of pancreas, unspecified Status: Acute Assessment and Plan: 12 mm cystic lesion of the pancreas. The differential diagnosis includes pseudocyst, intraductal papillary mucinous neoplasm (IPMN), mucinous cystic neoplasm (MCN), serous cystadenoma, and neuroendocrine tumor. Consider abdomen MRI without and with contrast in 2 years. With patient having several abnormal findings on her CT is recommended that the patient follow-up with her primary care provider in the next month (8) Kidney mass: Code(s): N28.89 - Other specified disorders of kidney and ureter Status: Acute Assessment and Plan: 2.3 cm right kidney mass, which may be a hemorrhagic cyst, but renal cell carcinoma cannot be excluded. Abdomen CT without and with contrast is recommended. Patient currently has a RUSSELL with a creatinine 1.5 with a baseline of 0.9, will hold off on CT with contrast until after RUSSELL has resolved (9) Cirrhosis: Code(s): K74.60 - Unspecified cirrhosis of liver Status: Acute Assessment and Plan: AST and ALT are normal No obvious ascites on exam (10) Hypertension: Code(s): I10 - Essential (primary) hypertension Status: Chronic Assessment and Plan: BP on admission is 128/35 Holding antihypertensives due to dehydration Quality VTE Prophylaxis VTE prophylaxis: mechanical ordered If No VTE Prophylaxis Answer both mechanical and pharmacologic: Reason no pharmacologic proph: medical contraindication Hospitalist MIPS Advance Care Plan I have confirmed that the patient's Advanced Care Plan is present, code status is documented, or surrogate decision maker is listed in patient medical record.: Yes Medication Reconciliation I have utilized all available resources to obtain, update and review the patients current medications (includes all prescriptions, OTC, herbals, cannabis, and nutritional supplements).: Yes
[2024-01-28 22:00] VITALS: BP 128/35; PULSE 84; RESP 18; TEMP 37.4; O2SAT 99
[2024-01-29] VITALS (11 sets, daily range): BP systolic 100–125; BP diastolic 33–55; PULSE 72–93; RESP 18; TEMP 36.7–37.4; O2SAT 99–100
[2024-01-29] MEDS: PIPERACILLN/TAZ 3.375GM/NS50ML 3.375 GM/50 ML BAG IVPB ×5 (00:22→23:06)
[2024-01-29] MEDS: MORPHINE SULFATE (*CRX) 2 MG/ML INJ IV PUSH (02:09)
[2024-01-29 05:43] LABS: Basophils Percent Auto 0.2 % (0.2-1.2); Eosinophils Percent Auto 0.1 % (0-4.4); Hematocrit 29.4 % (37.0-47.0); Hemoglobin 9.7 g/dL (12.0-15.0); Immature Granulocyte Absolute 0.07 K/mm3 (0.00-0.031); Immature Granulocyte Percent A 0.6 % (0-0.5); Immature Platelet Fraction Pct 5.4 % (0.9-11.2); Lymphocytes Percent Auto 8.8 % (18.3-44.2); Mean Corpuscular Hemoglobin 30.7 pg (26-34); Mean Platelet Volume 10.9 fl (7.4-10.4); Monocytes Absolute Auto 0.9 K/mm3 (0.1-0.6); Monocytes Percent Auto 8.1 % (2.6-8.5); Neutrophils Absolute Auto 9.4 K/mm3 (1.3-6.7); Neutrophils Percent Auto 82.2 % (45.5-73.1); Platelet Count Result 122 k/mm3 (150-375); Red Blood Count 3.16 M/mm3 (4.2-5.4); Red Cell Distribution Width 12.7 % (11.5-14.5); White Blood Count 11.4 K/mm3 (4.5-10.0)
[2024-01-29] MEDS: HYDROcodone/acetaminophen (*CRX) 5-325 MG TABLET 1 TAB PO ×3 (05:47→13:54)
[2024-01-29 05:52] LABS: Partial Thromboplastin Time 29.7 Seconds (22.3-36.8)
[2024-01-29 05:55] LABS: Anion Gap 6 mmol/L (4-12); Blood Urea Nitrogen 19 mg/dL (7-17); Calcium 8.4 mg/dL (8.4-10.2); Carbon Dioxide 18 mmol/L (22-30); Chloride 110 mmol/L (98-107); Estimated CRCL calculation 24 ml/min; Estimated Glomerular Filt Rate 32; Glucose 104 mg/dL (65-110); Phosphorus 3.3 mg/dL (2.5-4.5); Sodium 134 mmol/L (137-145)
[2024-01-29] MEDS: ONDANSETRON INJ 4 MG/2 ML VIAL IV PUSH ×2 (08:31→19:35)
--- NOTE | 2024-01-29 08:49 | P.CONGS_ITS ---
Assessment and Plan Assessment and plan (1) Abscess of sigmoid colon: Code(s): K63.0 - Abscess of intestine Status: Acute Assessment and Plan: * This is the reason for our consultation. CT scan showing small perisigmoid abscess abutting the vagina. No vaginal drainage reported. There are multiple diverticula noted on CT, so abscess could be related to diverticulitis given her history of 1 week of lower abdominal pain. Her pain is improving and she has no peritoneal signs on exam. We would recommend to continue with conservative treatment with IV antibiotics. Could consider discussing the CT scan with Radiology to see if the abscess is amenable to drainage if leukocytosis persists or she clinically deteriorates, but she is currently improving with antibiotics. Will start a clear liquid diet and advance diet as tolerated. No indication for urgent surgical intervention, and patient has multiple comorbidities listed below that also make her a higher risk surgical candidate. (2) Splenic infarct: Code(s): D73.5 - Infarction of spleen Status: Acute Assessment and Plan: * CT can showed a splenic infarct that could be subacute. No CT evidence of abscess. Etiology unclear. EKG without a.fib, she is not on continuous telemetry monitoring. No known trauma or recent surgeries. She does have evidence of liver cirrhosis on CT, which was not known to the patient. Further workup/management per Hospitalist. Anticoagulation is okay from a surgical standpoint if indicated. She does not appear to be having any acute pain or tenderness on exam from the splenic infarct. (3) Cirrhosis: Code(s): K74.60 - Unspecified cirrhosis of liver Status: Acute Assessment and Plan: * New findings on CT. She denies any alcohol use. This would increase her risks for any abdominal surgery. (4) Lesion of pancreas: Code(s): K86.9 - Disease of pancreas, unspecified Status: Acute Assessment and Plan: * Cystic lesion measuring [address], radiologist recommending follow-up abdominal MRI with and without contrast in 2 years. (5) RUSSELL (acute kidney injury): Code(s): N17.9 - Acute kidney failure, unspecified Status: Acute Assessment and Plan: * Creatinine 1.6 without known chronic kidney disease. Could be related to hypovolemia/dehydration due to her vomiting and poor oral intake over the past few days. Continue IV fluids, trend labs. (6) Thrombocytopenia: Code(s): D69.6 - Thrombocytopenia, unspecified Status: Acute (7) UTI (urinary tract infection): Code(s): N39.0 - Urinary tract infection, site not specified Status: Acute Assessment and Plan: * UA suggests possible UTI. Denies any urinary symptoms. Urine culture pending. Currently on IV Zosyn due to perisigmoid abscess. (8) Kidney mass: Code(s): N28.89 - Other specified disorders of kidney and ureter Status: Acute Assessment and Plan: * CT showed a 2.3 cm right kidney mass and radiologist recommends abdominal CT with and without contrast. Management per hospitalist. (9) COPD with chronic bronchitis and emphysema: Code(s): J44.9 - Chronic obstructive pulmonary disease, unspecified Status: Chronic (10) Congestive heart failure: Code(s): I50.9 - Heart failure, unspecified Status: Chronic Plan I have discussed the patient's case and plan of care with Dr. Yusuf. Thank you for allowing us to see the patient in consultation and we will continue to follow along with you. History of Present Illness Consult details Consult date: 01/29/24 Reason for consult: other (Perisigmoid abscess) Requesting physician: Julianna Quintanilla MD Narrative: This is a 73-year-old woman with PMH of anemia, COPD, CHF, who we have been asked to see in surgical consultation for a perisigmoid abscess. She has been having mid to left lower quadrant abdominal pain over the past week. Her pain is progressively become worse. She reports that would come and go. She did not notice any specific aggravating factors. Over the past few days, she has had poor oral intake and developed nausea and vomiting. She also reports subjective fevers around 101 - 101.6? F that she was treating with ibuprofen home. No reported history of diverticulitis. Yesterday, she states she was unable to keep anything down even water. Therefore, she came into the ED for evaluation. [place] [address], hemoglobin 11.9, hematocrit 35, platelets a 924897, sodium 133, BUN 17, creatinine 1.5. CT scan of the abdomen and pelvis showed a 2.8 x 2.3 x 3.2 cm perisigmoid abscess abutting the vagina. She denies any vaginal drainage. UA suggests possible UTI. She denies any urinary symptoms other than slightly darker you yellow urine over the past day or to when she has not been able to tolerate much liquids. CT also showed changes of liver cirrhosis, splenic infarct which may be subacute, 12 mm cystic lesion of the pancreas, and a 2.3 cm right kidney mass. She was admitted to the hospitalist and started on IV Zosyn. She is currently NPO with IV fluids for hydration. She reports her abdominal pain is much better today and she is mostly only tender in the left lower quadrant. No previous episodes of known diverticulitis. She has had multiple colonoscopies in the past, with her last being about 6-7 years ago. She reports she was due for colonoscopy at 4 years, but has not followed up. She is a poor historian when closing her about her previous abdominal surgeries. In the chart, it mentions a colectomy, but she does not recall ever having a colon resection. She reports having multiple polyps removed during a colonoscopy, some of which were cancerous, but does not recall requiring a surgery. She additionally has had a total abdominal hysterectomy, open cholecystectomy and an open appendectomy. She has a scar on her right lower quadrant from excision of a lipoma. She also reports having a left lower quadrant ventral hernia repair around 2014 but cannot recall if they used mesh. Review of Systems 2 Review of Systems: All systems reviewed & are unremarkable except as noted in HPI and below 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 Anxiety Congestive heart failure Hyperlipidemia Hypertension Surgical History Surgical History History of appendectomy H/O hernia repair H/O colonoscopy with polypectomy The patient stated that she had 16 polyps removed at 1 time H/O bladder repair surgery X3 History of colectomy History of hysterectomy History of cholecystectomy Family History Family History Father History of open heart surgery Sibling History of open heart surgery Sibling H/O heart artery stent Pancreatic cancer Mother Heart disease CHF (congestive heart failure) COPD (chronic obstructive pulmonary disease) Social History Social History Social History: The patient continues to smoke a half a pack a cigarettes a day for 54 years. She lives with her brother and [id number]. The patient has 2 children. The patient is . The patient was essentially a homemaker. The patient smokes marijuana 2 to 3 times a week. The patient denies any alcohol or illicit drugs. The patient desires to be a full code and chooses her brother to be the durable power biological plant operator for healthcare. The patient does not want to live in a vegetative state and she states her brother is aware of this. Smoking packs per day: 0.5 Smoking cigarettes per day: 10.0 Years smoked: 50 Smoking pack-years: 25.00 Smoking status: Current every day smoker Tobacco type: cigarettes Alcohol intake: never Substance use type: marijuana Other substance usage details: 2-3 times a week Do You Feel Safe in your Home?: Yes Lack of Transportation: No Lack of Food: Never True Current Housing: I Have Housing Concerned About Future Housing: No Difficulty Paying Gas/Electric Bills: No Difficulty Paying for Meds: No Currently Unemployed: No Education: High School Diploma/GED Difficulty w/ Childcare or Family Care: No Spiritual care concerns: No Meds Home Medications and Allergies Home Medications ?Medication ?Instructions ?Recorded ?Confirmed ?Type losartan 50 mg tablet 50 mg PO DAILY 10/15/20 01/28/24 History metoprolol succinate 50 mg 50 mg PO DAILY 10/15/20 01/28/24 History tablet,extended release 24 hr furosemide 40 mg tablet 20 mg (1/2 x 40 mg) PO DAILY #30 10/17/20 01/28/24 Rx tabs potassium chloride 20 mEq 20 meq PO BID #60 tabs 10/17/20 01/28/24 Rx tablet,extended release (K-Tab) rosuvastatin 20 mg tablet 20 mg PO DAILY 01/28/24 01/28/24 History Allergies Allergy/AdvReac Type Severity Reaction Status Date / Time codeine Allergy Vomiting Verified 10/15/20 15:55 Sulfa (Sulfonamide Allergy Hives Verified 10/15/20 15:55 Antibiotics) Vital Signs Vital Signs - 24 hr 01/28/24 11:23 01/28/24 15:41 01/28/24 18:21 Temperature 97.9 F 97.8 F Pulse Rate 100 97 91 Respiratory Rate 16 20 20 Blood Pressure 144/69 H 135/67 140/42 L Pulse Oximetry 100 100 98 Oxygen Delivery 01/28/24 19:46 01/28/24 20:00 01/28/24 22:00 Temperature 99.3 F Pulse Rate 91 80 84 Respiratory Rate 20 18 Blood Pressure 128/35 L Pulse Oximetry 98 99 Oxygen Delivery Room Air 01/29/24 00:00 01/29/24 04:00 01/29/24 05:59 Temperature 99.3 F Pulse Rate 93 89 92 Respiratory Rate 18 Blood Pressure 114/33 L Pulse Oximetry 99 Oxygen Delivery Exam 2 Const: General: comfortable and no acute distress Nutritional Appearance: a verage body habitus Orientation/consciousness: patient oriented x3 HENMT: Head: normocephalic and atraumatic Ears: hearing grossly normal bilaterally Mouth: Yes moist mucous membranes Eyes: General: appearance normal, both eyes and all related structures P upils: Equal, round and reactive pupils present Neck: Neck: normal visual inspection and full ROM Resp: Effort & Inspection: no respiratory distress Auscultation: clear to auscultation bilaterally Cardio: Rate: regular rate Rhythm: regular rhythm Heart sounds: S1 normal heart sound present and S2 normal heart sound present Peripheral pulses: Peripheral pulses 2+ throughout GI: Inspection: non-distended, scar (LLQ, RLQ x 2, midline ) and no visible herniation GI Palp: Yes Soft to palpation, Yes Tenderness to palpation present (GI) (LLQ and suprapubic area, mild), No Guarding due to palpation present (GI), Yes No hepatosplenomegaly present and No Rebound tenderness present Auscultation: normal bowel sounds Skin: General skin exam: normal color Neuro: General: moves all extremities and no focal motor deficits Speech: n ormal speech Motor exam (neuro): 5/5 motor strength present throughout Extrem: General: normal to inspection and no edema Psych: Mental Status: mental status grossly normal Attitude: cooperative Insight: Good insight present (Psych) Judgement: Good judgement present (Psych) Results Labs 01/29/24 05:27 01/29/24 05:27 Labs: Abnormal lab results 01/28/24 01/28/24 01/29/24 Range/Units 11:42 15:28 05:27 WBC 11.3 H 11.4 H (4.5-10.0) K/mm3 RBC 3.84 L 3.16 L (4.2-5.4) M/mm3 Hgb 11.9 L 9.7 L (12.0-15.0) g/dL Hct 35.3 L 29.4 L (37.0-47.0) % Plt Count 123 L 122 L (150-375) k/mm3 MPV 10.5 H 10.9 H (7.4-10.4) fl Immature Gran % (Auto) 0.6 H (0-0.5) % Neut % (Auto) 84.2 H 82.2 H (45.5-73.1) % Lymph % (Auto) 8.4 L 8.8 L (18.3-44.2) % [place] # (Auto) 0.8 H 0.9 H (0.1-0.6) K/mm3 Abs Immat Gran (auto) 0.07 H (0.00-0.031) K/mm3 Absolute Neuts (auto) 9.6 H 9.4 H (1.3-6.7) K/mm3 Sodium 133 L 134 L (137-145) mmol/L Chloride 110 H (98-107) mmol/L Carbon Dioxide 18 L (22-30) mmol/L BUN 19 H (7-17) mg/dL Creatinine 1.50 H 1.60 H (0.7-1.0) mg/dL Estimated GFR 34 L 32 L (59 - ) Glucose 127 H (65-110) mg/dL Urine Appearance Cloudy H (Clear) Ur Specific [place] 1.040 H (1.001-1.035) Urine Protein 3+ H (Negative) mg/dL Ur Blood (Man) 3+ H (Negative) Urine Nitrate Positive H (Negative) Leukocyte Esterase Rfl 1+ H (Negative) RM/UL Urine RBC 3-5 H (0-2) /hpf Urine WBC 11-20 H (0-3) /hpf Urine Bacteria 4+ H /hpf Diabetes panel 01/28/24 01/29/24 Range/Units 11:42 05:27 Sodium 133 L 134 L (137-145) mmol/L Potassium 4.4 4.0 (3.4-5.0) mmol/L Chloride 103 110 H (98-107) mmol/L Carbon Dioxide 23 18 L (22-30) mmol/L BUN 17 D 19 H (7-17) mg/dL Creatinine 1.50 H 1.60 H (0.7-1.0) mg/dL Glucose 127 H 104 (65-110) mg/dL Calcium 9.3 8.4 (8.4-10.2) mg/dL AST 20 (14-36) U/L ALT 13 (6-35) U/L Alkaline Phosphatase 65 (38-126) U/L Total Protein 8.0 (6.3-8.2) g/dL Albumin 4.1 (3.5-5.1) g/dL Calcium panel 01/28/24 01/29/24 Range/Units 11:42 05:27 Calcium 9.3 8.4 (8.4-10.2) mg/dL Phosphorus 3.3 (2.5-4.5) mg/dL Albumin 4.1 (3.5-5.1) g/dL Pituitary panel 01/28/24 01/29/24 Range/Units 11:42 05:27 Sodium 133 L 134 L (137-145) mmol/L Potassium 4.4 4.0 (3.4-5.0) mmol/L Chloride 103 110 H (98-107) mmol/L Carbon Dioxide 23 18 L (22-30) mmol/L BUN 17 D 19 H (7-17) mg/dL Creatinine 1.50 H 1.60 H (0.7-1.0) mg/dL Glucose 127 H 104 (65-110) mg/dL Calcium 9.3 8.4 (8.4-10.2) mg/dL Adrenal panel 01/28/24 01/29/24 Range/Units 11:42 05:27 Sodium 133 L 134 L (137-145) mmol/L Potassium 4.4 4.0 (3.4-5.0) mmol/L Chloride 103 110 H (98-107) mmol/L Carbon Dioxide 23 18 L (22-30) mmol/L BUN 17 D 19 H (7-17) mg/dL Creatinine 1.50 H 1.60 H (0.7-1.0) mg/dL Glucose 127 H 104 (65-110) mg/dL Calcium 9.3 8.4 (8.4-10.2) mg/dL Total Bilirubin 1.3 (0.2-1.3) mg/dL AST 20 (14-36) U/L ALT 13 (6-35) U/L Alkaline Phosphatase 65 (38-126) U/L Total Protein 8.0 (6.3-8.2) g/dL Albumin 4.1 (3.5-5.1) g/dL All other labs normal. Imaging Additional studies: ITS Impressions Abdomen/Pelvis CT 01/28/24 13:31 IMPRESSION: 1. 2.8 x 2.3 x 3.2 cm perisigmoid abscess abutting the vagina. 2. Cirrhosis of the liver. 3. Splenic infarct, which may be subacute. 4. 12 mm cystic lesion of the pancreas. The differential diagnosis includes pseudocyst, intraductal papillary mucinous neoplasm (IPMN), mucinous cystic neoplasm (MCN), serous cystadenoma, and neuroendocrine tumor. Consider abdomen MRI without and with contrast in 2 years. 5. 2.3 cm right kidney mass, which may be a hemorrhagic cyst, but renal cell carcinoma cannot be excluded. Abdomen CT without and with contrast is recommended.
[2024-01-29] MEDS: ROSUVASTATIN 20 MG TABLET PO (08:54)
[2024-01-29] MEDS: POTASSIUM CHLORIDE 20 MEQ ER TABLET PO ×2 (08:54→16:03)
[2024-01-29] MEDS: NICOTINE (*PBKC) 14 MG PATCH 1 PATCH TRANSDERM (08:55)
[2024-01-29] MEDS: FUROSEMIDE 20 MG TABLET PO (09:26)
[2024-01-29] MEDS: METOPROLOL SUCCINATE EXT REL 50 MG TABCR PO (09:26)
[2024-01-29] MEDS: LOSARTAN POTASSIUM 50 MG TABLET PO (09:26)
--- NOTE | 2024-01-29 10:35 | P.PNIM_ITS ---
Progress Note: A&P Assessment and Plan (1) Abscess of sigmoid colon: Code(s): K63.0 - Abscess of intestine Status: Acute Assessment and Plan: * CT of the abdomen and pelvis showed a 2.8 x 2.3 x 3.2 cm perisigmoid abscess abutting the vagina * general surgery following, treating conservatively * continue Zosyn * blood cultures showing no growth to date on preliminary read (2) UTI (urinary tract infection): Code(s): N39.0 - Urinary tract infection, site not specified Status: Acute Assessment and Plan: * UA showing cloudy urine appearance, urine specific gravity 1.040, 3+ urine protein, 3+ urine blood, positive nitrate, 1+ leukocyte, 3-5 urine RBC, 11-20 urine WBC, 4+ urine bacteria. * Urine culture was obtained and pending * currently on Zosyn (3) RUSSELL (acute kidney injury): Code(s): N17.9 - Acute kidney failure, unspecified Status: Acute Assessment and Plan: * initial creatinine 1.50, now up to 1.60 * baseline creatinine 0.90 * continue trend * patient received IV contrast with CT of the abdomen and pelvis * hold nephrotoxic medication including losartan and Lasix * continue IV fluids at 75 ml per hour (4) Hyponatremia: Code(s): E87.1 - Hypo-osmolality and hyponatremia Status: Acute Assessment and Plan: * sodium 133 now up to 134 * continue to trend (5) Splenic infarct: Code(s): D73.5 - Infarction of spleen Status: Acute Assessment and Plan: * CT of the abdomen and pelvis showed splenic infarct which may be subacute * will need to be re-scanned (6) Congestive heart failure: Code(s): I50.9 - Heart failure, unspecified Status: Chronic Assessment and Plan: * no echo to review * continue metoprolol * hold losartan and Lasix considering RUSSELL (7) Lesion of pancreas: Code(s): K86.9 - Disease of pancreas, unspecified Status: Acute Assessment and Plan: * CT of the abdomen and pelvis showed a 12 mm cystic lesion of the pancreas * will need MRI with and without contrast in 2 years to re-evaluate (8) Kidney mass: Code(s): N28.89 - Other specified disorders of kidney and ureter Status: Acute Assessment and Plan: * CT of the abdomen and pelvis shown a 2.3 cm right kidney mass, which may be a hemorrhagic cyst, but renal cell carcinoma cannot be excluded. * will need a repeat Abdomen CT without and with contrast however we will have to wait until her RUSSELL resolve (9) Cirrhosis: Code(s): K74.60 - Unspecified cirrhosis of liver Status: Acute Assessment and Plan: * CT of the abdomen pelvis showing cirrhosis of the liver * liver enzymes normal * will check hepatitis panel (10) Hypertension: Code(s): I10 - Essential (primary) hypertension Status: Chronic Assessment and Plan: * blood pressure ranging 100/50 to 125/55 * losartan hold due to RUSSELL * continue metoprolol Time Spent With Patient Time with patient: Greater than 35 minutes Subjective Date/time seen: 01/29/24 10:35 Interval history: Interval history: This is a 73-year-old female who presented to the hospital on 01/28/2024 with complaints of lower abdominal pain. Workup in the hospital included an abdomen/pelvis CT which 2.8 x 2.3 x 3.2 cm vernon sigmoid abscess abutting the vagina, cirrhosis of the liver, splenic infarct which may be subacute, 12 mm cystic lesion of the pancreas, 2.3 cm right kidney mass which may be a cyst-- recommending further imaging. Initial labs showed a white blood cell count 11.3, hemoglobin 11.9, platelet count 123, sodium 133, creatinine 0.50, EGFR 34. UA was obtained which showed a cloudy urine appearance, urine specific gravity 1.040, 3+ urine protein, 3+ urine blood, positive nitrate, 1+ leukocytes, 3-5 urine RBC, 11-20 urine WBC, 4+ urine bacteria. Urine and blood cultures were obtained and are pending. EKG showed sinus rhythm with a rate of 65, QTC 433. She was given a dose of Zofran, morphine, 1 L of normal saline, and Zosyn while in the ED. General surgery was consulted. Subjective: Patient denies any fever, chills, nausea, vomiting, diarrhea, chest pain, or shortness of breath. Patient endorses perirectal pain that she rates 7/10. Labs and imaging reviewed. Review of Systems Review of Systems: All systems reviewed & are unremarkable except as noted in HPI and below Constitutional: Constitutional: Reports as per HPI and Reports no additional constitutional complaints Eyes: Eyes: Reports as per HPI and Reports no additional eye complaints ENT: Reports system reviewed and no additional complaints, except as documented and Reports as per HPI Cardiovascular: Cardiovascular: Reports as per HPI and Reports no additional cardiovascular complaints Respiratory: Respiratory: Reports as per HPI and Reports no additional respiratory complaints Gastrointestinal: Gastrointestinal: Reports as per HPI and Reports no additional gastrointestinal complaints Genitourinary: Genitourinary: Reports no additional female genitourinary complaints and Reports as per HPI Musculoskeletal: Musculoskeletal: Reports no additional musculoskeletal complaints and Reports as per HPI Integumentary/Breasts: Skin/Breast: Reports system reviewed and no additional complaints, except as docu and Reports as per HPI Neurologic: Reports system reviewed and no additional complaints, except as documented and Reports as per HPI Psychiatric: Psychiatric: Reports no additional psychiatric complaints and Reports as per HPI Exam Narrative: General: In no acute distress, well nourished Head: atraumatic, no encephalopathy Eyes:PERRLA, sclera clear ENT: moist mucous membranes, nasal passages clear Neck: supple, no JVD, no adenopathy, trachea midline Cardiac: Normal S1 and S2. No murmur, gallops or friction rubs, peripheral pulses intact. Respiratory: Lungs clear to auscultation, no adventitious lung sounds, currently on room air Gastrointestinal: soft, non-distended, non-tender, normoactive bowel sounds. : voiding without difficulty. Extremities: moves all extremities well, no edema, good ROM, strength 5/5 Skin: clean, dry, intact. No wounds or lesions. Neuro: Alert and oriented x4, cranial nerves intact, no neuro deficits. Psych: normal mood, normal affect, interactive Objective Data Vital Signs Vital Signs: Vital Signs - 24 hr 01/28/24 11:23 01/28/24 15:41 01/28/24 18:21 Temperature 97.9 F 97.8 F Pulse Rate 100 97 91 Respiratory Rate 16 20 20 Blood Pressure 144/69 H 135/67 140/42 L Pulse Oximetry 100 100 98 Oxygen Delivery 01/28/24 19:46 01/28/24 20:00 01/28/24 22:00 Temperature 99.3 F Pulse Rate 91 80 84 Respiratory Rate 20 18 Blood Pressure 128/35 L Pulse Oximetry 98 99 Oxygen Delivery Room Air 01/29/24 00:00 01/29/24 04:00 01/29/24 05:59 Temperature 99.3 F Pulse Rate 93 89 92 Respiratory Rate 18 Blood Pressure 114/33 L Pulse Oximetry 99 Oxygen Delivery 01/29/24 09:24 01/29/24 09:24 01/29/24 09:26 Temperature Pulse Rate 92 Respiratory Rate Blood Pressure 100/50 L 125/55 L Pulse Oximetry Oxygen Delivery Intake/Output Intake/Output: Intake & Output 01/26/24 01/27/24 01/28/24 01/29/24 23:59 23:59 23:59 23:59 Intake Total 600 100 Balance 600 100 Meds/Results Medications: Active Medications Generic Name Dose Route Start Last Admin Trade Name Freq PRN Reason Stop Dose Admin Hydrocodone Bitart/Acetaminophen 1 tab 01/28/24 23:15 01/29/24 09:38 Hydrocodone/Acetaminophen (*Crx) 5-325 Mg Tablet PO 1 tab Q4H PRN Administration Moderate Pain (4-6) Furosemide 20 mg 01/29/24 09:00 01/29/24 09:26 Furosemide 20 Mg Tablet PO 20 mg DAILY TERI Administration Sodium Chloride 1,000 mls @ 75 mls/hr 01/28/24 19:55 01/28/24 20:13 Normal Saline Iv IV CONT 75 mls/hr .[id number] TERI Administration Piperacillin/Tazobactam/Dextrose 3.375 gm in 50 mls @ 100 mls/hr 01/29/24 00:00 01/29/24 06:13 Zosyn 3.375 Gm/Ns 50 Ml IVPB Infused Q6H TERI Infusion Losartan Potassium 50 mg 01/29/24 09:00 01/29/24 09:26 Losartan Potassium 50 Mg Tablet PO 50 mg DAILY TERI Administration Metoprolol Succinate 50 mg 01/29/24 09:00 01/29/24 09:26 Metoprolol Succinate Ext Rel 50 Mg Tabcr PO 50 mg DAILY TERI Administration Morphine Sulfate 2 mg 01/28/24 23:15 01/29/24 02:09 Morphine Sulfate (*Crx) 2 Mg/Ml Inj IV PUSH 2 mg Q4H PRN Administration Pain Rated 7-10 Nicotine 1 patch 01/29/24 09:00 01/29/24 08:55 Nicotine (*Pbkc) 14 Mg Patch TRANSDERM 1 patch DAILY TERI Administration Ondansetron HCl 4 mg 01/28/24 22:26 01/29/24 08:31 Ondansetron Inj 4 Mg/2 Ml Vial IV PUSH 4 mg Q6H PRN Administration Nausea And Vomiting Potassium Chloride 20 meq 01/29/24 09:00 01/29/24 08:54 Potassium Chloride 20 Meq Er Tablet PO 20 meq BID TERI Administration Rosuvastatin Calcium 20 mg 01/29/24 09:00 01/29/24 08:54 Rosuvastatin 20 Mg Tablet PO 20 mg DAILY TERI Administration Radiology Results: ITS Impressions Abdomen/Pelvis CT 01/28/24 13:31 IMPRESSION: 1. 2.8 x 2.3 x 3.2 cm perisigmoid abscess abutting the vagina. 2. Cirrhosis of the liver. 3. Splenic infarct, which may be subacute. 4. 12 mm cystic lesion of the pancreas. The differential diagnosis includes pseudocyst, intraductal papillary mucinous neoplasm (IPMN), mucinous cystic neoplasm (MCN), serous cystadenoma, and neuroendocrine tumor. Consider abdomen MRI without and with contrast in 2 years. 5. 2.3 cm right kidney mass, which may be a hemorrhagic cyst, but renal cell carcinoma cannot be excluded. Abdomen CT without and with contrast is recommended. Labs Labs: Laboratory Results - last 24 hr 01/28/24 01/28/24 01/29/24 11:42 15:28 05:27 WBC 11.3 H 11.4 H RBC 3.84 L 3.16 L Hgb 11.9 L 9.7 L Hct 35.3 L 29.4 L MCV 91.9 93.0 MCH 31.0 30.7 MCHC 33.7 33.0 RDW 12.7 12.7 Plt Count 123 L 122 L MPV 10.5 H 10.9 H Immature Gran % (Auto) 0.3 0.6 H Neut % (Auto) 84.2 H 82.2 H Lymph % (Auto) 8.4 L 8.8 L [place] % (Auto) 6.9 8.1 Eos % (Auto) 0.0 0.1 Baso % (Auto) 0.2 0.2 Lymph # (Auto) 0.95 1.00 [place] # (Auto) 0.8 H 0.9 H Eos # (Auto) 0.0 0.0 Baso # (Auto) 0.0 0.0 Abs Immat Gran (auto) 0.03 0.07 H Absolute Neuts (auto) 9.6 H 9.4 H Absolute Nucleated RBC 0.000 0.000 Nucleated RBC % 0.0 0.0 % Immature Plt Fraction 5.4 5.4 APTT 29.7 Sodium 133 L 134 L Potassium 4.4 4.0 Chloride 103 110 H Carbon Dioxide 23 18 L Anion Gap 7 6 BUN 17 D 19 H Creatinine 1.50 H 1.60 H Estim Creat Clear Calc Not Reportable 24 Estimated GFR 34 L 32 L Glucose 127 H 104 Calcium 9.3 8.4 Phosphorus 3.3 Magnesium 2.0 Total Bilirubin 1.3 AST 20 ALT 13 Alkaline Phosphatase 65 Total Protein 8.0 Albumin 4.1 Lipase 28 Urine Color Yellow Urine Appearance Cloudy H Urine pH 5.5 Ur Specific [place] 1.040 H Urine Protein 3+ H Urine Glucose (UA) Negative Urine Ketones Negative Ur Blood (Man) 3+ H Urine Nitrate Positive H Urine Bilirubin Negative Urine Urobilinogen 0.2 Add Ur Microanalysis Reviewed Leukocyte Esterase Rfl 1+ H Urine RBC 3-5 H Urine WBC 11-20 H Ur Squamous Epith Cells Few Urine Bacteria 4+ H Urine Casts 6-10 Granular Casts Present Urine Mucus Present Quality VTE Prophylaxis VTE prophylaxis: mechanical ordered
[2024-01-29 11:41] LABS: Hepatitis B Surface Antigen Negative (Negative)
[2024-01-29 11:47] LABS: HAV RESULT Negative (Negative); Hepatitis B Core IgM Result Negative (Negative)
[2024-01-29] MEDS: SODIUM CHLORIDE 0.9% IV 1,000 ML 75 ML IV CONT (11:58)
[2024-01-29 11:59] LABS: Hepatitis C Virus Antibody Negative (Negative)
[2024-01-29] MEDS: diphenhydrAMINE HCl CAP 25 MG CAPSULE PO (16:03)
[2024-01-29] MEDS: HYDROcodone/acetaminophen (*CRX) 5-325 MG TABLET 2 TAB PO ×2 (18:04→23:59)
[2024-01-29 18:51] LABS: Toxigenic C. Diff POSITIVE (NEGATIVE)
[2024-01-29] MEDS: FIDAXOMICIN 200 MG TABLET PO (20:50)
[2024-01-30] VITALS (10 sets, daily range): BP systolic 125–151; BP diastolic 58–74; PULSE 67–78; RESP 16–18; TEMP 36.5–36.9; O2SAT 97–98
[2024-01-30] MEDS: SODIUM CHLORIDE 0.9% IV 1,000 ML 75 ML IV CONT ×2 (01:29→16:18)
[2024-01-30] MEDS: PIPERACILLN/TAZ 3.375GM/NS50ML 3.375 GM/50 ML BAG IVPB ×4 (05:08→23:53)
[2024-01-30 05:22] LABS: Hematocrit 29.5 % (37.0-47.0); Hemoglobin 9.6 g/dL (12.0-15.0); Immature Platelet Fraction Pct 6.9 % (0.9-11.2); Mean Corpuscular HGB Conc 32.5 g/dl (32-36); Mean Corpuscular Hemoglobin 30.9 pg (26-34); Mean Corpuscular Volume 94.9 fl (80-100); Mean Platelet Volume 11.1 fl (7.4-10.4); Platelet Count Result 115 k/mm3 (150-375); Red Blood Count 3.11 M/mm3 (4.2-5.4); Red Cell Distribution Width 12.8 % (11.5-14.5); White Blood Count 6.9 K/mm3 (4.5-10.0)
[2024-01-30 05:34] LABS: Anion Gap 3 mmol/L (4-12); Blood Urea Nitrogen 17 mg/dL (7-17); Calcium 7.8 mg/dL (8.4-10.2); Carbon Dioxide 22 mmol/L (22-30); Chloride 111 mmol/L (98-107); Estimated CRCL calculation 22 ml/min; Estimated Glomerular Filt Rate 30; Glucose 102 mg/dL (65-110); Potassium 3.8 mmol/L (3.4-5.0); Sodium 136 mmol/L (137-145)
--- NOTE | 2024-01-30 07:15 | P.PNIM_ITS ---
Progress Note: A&P Assessment and Plan (1) Abscess of sigmoid colon: Code(s): K63.0 - Abscess of intestine Status: Acute Assessment and Plan: * CT of the abdomen and pelvis showed a 2.8 x 2.3 x 3.2 cm perisigmoid abscess abutting the vagina * general surgery following, treating conservatively * continue Zosyn * blood cultures showing no growth to date on preliminary read (2) C. difficile colitis: Code(s): A04.72 - Enterocolitis due to Clostridium difficile, not specified as recurrent Status: Acute Assessment and Plan: * Found to be C diff positive * Started on Dificid (3) UTI (urinary tract infection): Code(s): N39.0 - Urinary tract infection, site not specified Status: Acute Assessment and Plan: * UA showing cloudy urine appearance, urine specific gravity 1.040, 3+ urine protein, 3+ urine blood, positive nitrate, 1+ leukocyte, 3-5 urine RBC, 11-20 urine WBC, 4+ urine bacteria. * Urine culture showing E coli on final read--Zosyn is susceptible * Continue Zosyn for now (4) RUSSELL (acute kidney injury): Code(s): N17.9 - Acute kidney failure, unspecified Status: Acute Assessment and Plan: * initial creatinine 1.50>1.60>1.70--trending upward * baseline creatinine 0.90 * continue trend * patient received IV contrast with CT of the abdomen and pelvis * hold nephrotoxic medication including losartan and Lasix * continue IV fluids at 75 ml per hour * will watch for another day. (5) Hyponatremia: Code(s): E87.1 - Hypo-osmolality and hyponatremia Status: Acute Assessment and Plan: * sodium 133>134>136 * continue to trend (6) Splenic infarct: Code(s): D73.5 - Infarction of spleen Status: Acute Assessment and Plan: * CT of the abdomen and pelvis showed splenic infarct which may be subacute * will need to be re-scanned once creatinine normalizes * Will get Hematology consult (7) Congestive heart failure: Code(s): I50.9 - Heart failure, unspecified Status: Chronic Assessment and Plan: * no echo to review * continue metoprolol * hold losartan and Lasix considering RUSSELL (8) Lesion of pancreas: Code(s): K86.9 - Disease of pancreas, unspecified Status: Acute Assessment and Plan: * CT of the abdomen and pelvis showed a 12 mm cystic lesion of the pancreas * will need MRI with and without contrast in 2 years to re-evaluate (9) Kidney mass: Code(s): N28.89 - Other specified disorders of kidney and ureter Status: Acute Assessment and Plan: * CT of the abdomen and pelvis shown a 2.3 cm right kidney mass, which may be a hemorrhagic cyst, but renal cell carcinoma cannot be excluded. * will need a repeat Abdomen CT without and with contrast however we will have to wait until her RUSSELL resolve (10) Cirrhosis: Code(s): K74.60 - Unspecified cirrhosis of liver Status: Acute Assessment and Plan: * CT of the abdomen pelvis showing cirrhosis of the liver * liver enzymes normal * Hepatitis panel negative (11) Hypertension: Code(s): I10 - Essential (primary) hypertension Status: Chronic Assessment and Plan: * blood pressure ranging 118/35-125/60 * losartan hold due to RUSSELL * continue metoprolol Time Spent With Patient Time with patient: Greater than 35 minutes Subjective Date/time seen: 01/30/24 07:15 Interval history: Interval history: This is a 73-year-old female who presented to the hospital on 01/28/2024 with complaints of lower abdominal pain. Workup in the hospital included an abdomen/pelvis CT which 2.8 x 2.3 x 3.2 cm vernon sigmoid abscess abutting the vagina, cirrhosis of the liver, splenic infarct which may be subacute, 12 mm cystic lesion of the pancreas, 2.3 cm right kidney mass which may be a cyst-- recommending further imaging. Initial labs showed a white blood cell count 11.3, hemoglobin 11.9, platelet count 123, sodium 133, creatinine 0.50, EGFR 34. UA was obtained which showed a cloudy urine appearance, urine specific gravity 1.040, 3+ urine protein, 3+ urine blood, positive nitrate, 1+ leukocytes, 3-5 urine RBC, 11-20 urine WBC, 4+ urine bacteria. Urine and blood cultures were obtained and are pending. EKG showed sinus rhythm with a rate of 65, QTC 433. She was given a dose of Zofran, morphine, 1 L of normal saline, and Zosyn while in the ED. General surgery was consulted. Subjective: Patient reporting abdominal pain and bloating today. She has been having boats of diarrhea that is uncontrolled. Stool was sent down to lab and she was found to be C diff positive. She was started on Difacid overnight. Labs reviewed. Review of Systems Review of Systems: 12 systems were reviewed and are negativ e except for as per HPI. All systems reviewed & are unremarkable except as noted in HPI and below Constitutional: Constitutional: Reports as per HPI and Reports no additional constitutional complaints Eyes: Eyes: Reports as per HPI and Reports no additional eye complaints ENT: Reports system reviewed and no additional complaints, except as documented and Reports as per HPI Cardiovascular: Cardiovascular: Reports as per HPI and Reports no additional cardiovascular complaints Respiratory: Respiratory: Reports as per HPI and Reports no additional respiratory complaints Gastrointestinal: Gastrointestinal: Reports as per HPI and Reports no additional gastrointestinal complaints Genitourinary: Genitourinary: Reports no additional female genitourinary c omplaints and Reports as per HPI Musculoskeletal: Musculoskeletal: Reports no additional musculoskeletal complaints and Reports as per HPI Integumentary/Breasts: Skin/Breast: Reports system reviewed and no additional complaints, except as docu and Reports as per HPI Neurologic: Reports system reviewed and no additional complaints, except as documented and Reports as per HPI Psychiatric: Psychiatric: Reports no additional psychiatric complaints and Reports as per HPI Exam Narrative: General: In no acute distress, well nourished Cardiac: Normal S1 and S2. No murmur, gallops or friction rubs, peripheral pulses intact. Respiratory: Lungs clear to auscultation, no adventitious lung sounds, currently on room air Gastrointestinal: soft, non-distended, non-tender, normoactive bowel sounds. : voiding without difficulty. Extremities: moves all extremities well, no edema Neuro: Alert and oriented x4 Objective Data Vital Signs Vital Signs: Vital Signs - 24 hr 01/29/24 08:03 01/29/24 09:24 01/29/24 09:24 Temperature Pulse Rate 80 Respiratory Rate Blood Pressure 100/50 L 125/55 L Pulse Oximetry Oxygen Delivery 01/29/24 09:26 01/29/24 12:01 01/29/24 14:00 Temperature 98.1 F Pulse Rate 92 82 73 Respiratory Rate 18 Blood Pressure 115/50 L Pulse Oximetry 100 Oxygen Delivery 01/29/24 16:04 01/29/24 20:00 01/29/24 20:00 Temperature Pulse Rate 82 72 Respiratory Rate Blood Pressure Pulse Oximetry Oxygen Delivery Room Air 01/29/24 22:00 01/30/24 00:00 01/30/24 04:00 Temperature 98.4 F Pulse Rate 78 73 69 Respiratory Rate 18 Blood Pressure 118/35 L Pulse Oximetry 99 Oxygen Delivery 01/30/24 06:00 Temperature 98.4 F Pulse Rate 75 Respiratory Rate 18 Blood Pressure 125/60 Pulse Oximetry 98 Oxygen Delivery Intake/Output Intake/Output: Intake & Output 01/27/24 01/28/24 01/29/24 01/30/24 23:59 23:59 23:59 23:59 Intake Total 600 3040 1050 Output Total 1200 Balance 600 1840 1050 Meds/Results Medications: Active Medications Generic Name Dose Route Start Last Admin Trade Name Freq PRN Reason Stop Dose Admin Hydrocodone Bitart/Acetaminophen 1 tab 01/28/24 23:15 01/29/24 13:54 Hydrocodone/Acetaminophen (*Crx) 5-325 Mg Tablet PO 1 tab Q4H PRN Administration Moderate Pain (4-6) Hydrocodone Bitart/Acetaminophen 2 tab 01/29/24 16:55 01/29/24 23:59 Hydrocodone/Acetaminophen (*Crx) 5-325 Mg Tablet PO 2 tab Q6H PRN Administration Pain Rated 7-10 Diphenhydramine HCl 25 mg 01/29/24 15:23 01/29/24 16:03 Diphenhydramine Hcl Cap 25 Mg Capsule PO 25 mg Q6H PRN Administration Itching Enoxaparin Sodium 30 mg 01/30/24 09:00 Enoxaparin 30 Mg/0.3 Ml Syringe SUB-Q DAILY TERI Fidaxomicin 200 mg 01/29/24 21:00 01/29/24 20:50 Fidaxomicin 200 Mg Tablet PO 02/08/24 20:59 200 mg Q12HR TERI Administration Furosemide 20 mg 01/29/24 09:00 01/29/24 09:26 Furosemide 20 Mg Tablet PO 20 mg DAILY TERI Administration Sodium Chloride 1,000 mls @ 75 mls/hr 01/28/24 19:55 01/30/24 01:29 Normal Saline Iv IV CONT 75 mls/hr .[id number] TERI Administration Piperacillin/Tazobactam/Dextrose 3.375 gm in 50 mls @ 100 mls/hr 01/29/24 00:00 01/30/24 05:38 Zosyn 3.375 Gm/Ns 50 Ml IVPB Infused Q6H TERI Infusion Losartan Potassium 50 mg 01/29/24 09:00 01/29/24 09:26 Losartan Potassium 50 Mg Tablet PO 50 mg DAILY TERI Administration Metoprolol Succinate 50 mg 01/29/24 09:00 01/29/24 09:26 Metoprolol Succinate Ext Rel 50 Mg Tabcr PO 50 mg DAILY TERI Administration Nicotine 1 patch 01/29/24 09:00 01/29/24 08:55 Nicotine (*Ruizkc) 14 Mg Patch TRANSDERM 1 patch DAILY TERI Administration Ondansetron HCl 4 mg 01/28/24 22:26 01/29/24 19:35 Ondansetron Inj 4 Mg/2 Ml Vial IV PUSH 4 mg Q6H PRN Administration Nausea And Vomiting Potassium Chloride 20 meq 01/29/24 09:00 01/29/24 16:03 Potassium Chloride 20 Meq Er Tablet PO 20 meq BID TERI Administration Rosuvastatin Calcium 20 mg 01/29/24 09:00 01/29/24 08:54 Rosuvastatin 20 Mg Tablet PO 20 mg DAILY TERI Administration Radiology Results: ITS Impressions Abdomen/Pelvis CT 01/28/24 13:31 IMPRESSION: 1. 2.8 x 2.3 x 3.2 cm perisigmoid abscess abutting the vagina. 2. Cirrhosis of the liver. 3. Splenic infarct, which may be subacute. 4. 12 mm cystic lesion of the pancreas. The differential diagnosis includes pseudocyst, intraductal papillary mucinous neoplasm (IPMN), mucinous cystic neoplasm (MCN), serous cystadenoma, and neuroendocrine tumor. Consider abdomen MRI without and with contrast in 2 years. 5. 2.3 cm right kidney mass, which may be a hemorrhagic cyst, but renal cell carcinoma cannot be excluded. Abdomen CT without and with contrast is recommended. Labs Labs: Laboratory Results - last 24 hr 01/29/24 01/29/24 01/30/24 05:27 17:51 04:56 WBC 6.9 RBC 3.11 L Hgb 9.6 L Hct 29.5 L MCV 94.9 MCH 30.9 MCHC 32.5 RDW 12.8 Plt Count 115 L MPV 11.1 H % Immature Plt Fraction 6.9 Sodium 136 L Potassium 3.8 Chloride 111 H Carbon Dioxide 22 Anion Gap 3 L BUN 17 Creatinine 1.70 H Estim Creat Clear Calc 22 Estimated GFR 30 L Glucose 102 Calcium 7.8 L C. difficile (PCR) Positive A* Hepatitis A IgM Ab Negative Hep Bs Antigen Negative Hep B Core IgM Ab Negative Hepatitis C Ab Screen Negative Quality VTE Prophylaxis VTE prophylaxis: mechanical ordered
[2024-01-30] MEDS: HYDROcodone/acetaminophen (*CRX) 5-325 MG TABLET 2 TAB PO ×2 (08:00→14:23)
[2024-01-30] MEDS: POTASSIUM CHLORIDE 20 MEQ ER TABLET PO ×2 (08:02→16:19)
[2024-01-30] MEDS: METOPROLOL SUCCINATE EXT REL 50 MG TABCR PO (08:02)
[2024-01-30] MEDS: ONDANSETRON INJ 4 MG/2 ML VIAL IV PUSH ×3 (08:02→20:11)
[2024-01-30] MEDS: FIDAXOMICIN 200 MG TABLET PO ×2 (08:03→20:11)
[2024-01-30] MEDS: NICOTINE (*PBKC) 14 MG PATCH 1 PATCH TRANSDERM (08:03)
[2024-01-30] MEDS: ROSUVASTATIN 20 MG TABLET PO (08:03)
[2024-01-30] MEDS: ENOXAPARIN 30 MG/0.3 ML SYRINGE SUB-Q (08:04)
--- NOTE | 2024-01-30 12:26 | P.PNGS_ITS ---
Progress Note: A&P Assessment and Plan (1) Abscess of sigmoid colon: Code(s): K63.0 - Abscess of intestine Status: Acute Assessment and Plan: * Continue full liquids today. A little more distended today, might need to consider KUB tomorrow if not improving. * Continue IV antibiotics. WBC now normal. (2) Cirrhosis: Code(s): K74.60 - Unspecified cirrhosis of liver Status: Acute (3) Splenic infarct: Code(s): D73.5 - Infarction of spleen Status: Acute (4) RUSSELL (acute kidney injury): Code(s): N17.9 - Acute kidney failure, unspecified Status: Acute (5) UTI (urinary tract infection): Code(s): N39.0 - Urinary tract infection, site not specified Status: Acute Subjective Subjective Date/Time Seen: 01/30/24 12:26 Interval history: Patient feeling a little more bloated today. Having some loose stools. Tolerating full liquids but not able to eat much because of bloating. Lower abdominal pain improving. Exam GI: Inspection: distended GI Palp: Yes Soft to palpation, Yes Tenderness to palpation present (GI) (upper abdominal), No Guarding due to palpation present (GI) and No Rebound tenderness present Objective Data Vital Signs Vital Signs: Vital Signs - 24 hr 01/29/24 14:00 01/29/24 16:04 01/29/24 20:00 Temperature 98.1 F Pulse Rate 73 82 Respiratory Rate 18 Blood Pressure 115/50 L Pulse Oximetry 100 Oxygen Delivery Room Air 01/29/24 20:00 01/29/24 22:00 01/30/24 00:00 Temperature 98.4 F Pulse Rate 72 78 73 Respiratory Rate 18 Blood Pressure 118/35 L Pulse Oximetry 99 Oxygen Delivery 01/30/24 04:00 01/30/24 06:00 01/30/24 08:00 Temperature 98.4 F Pulse Rate 69 75 Respiratory Rate 18 Blood Pressure 125/60 Pulse Oximetry 98 Oxygen Delivery Room Air 01/30/24 08:02 Temperature Pulse Rate 67 Respiratory Rate Blood Pressure Pulse Oximetry Oxygen Delivery Intake/Output Intake/Output: Intake & Output 01/27/24 01/28/24 01/29/24 01/30/24 23:59 23:59 23:59 23:59 Intake Total 600 3040 1410 Output Total 1200 Balance 600 1840 1410 Meds/Results Medications: Active Medications Generic Name Dose Route Start Last Admin Trade Name Freq PRN Reason Stop Dose Admin Hydrocodone Bitart/Acetaminophen 1 tab 01/28/24 23:15 01/29/24 13:54 Hydrocodone/Acetaminophen (*Crx) 5-325 Mg Tablet PO 1 tab Q4H PRN Administration Moderate Pain (4-6) Hydrocodone Bitart/Acetaminophen 2 tab 01/29/24 16:55 01/30/24 08:00 Hydrocodone/Acetaminophen (*Crx) 5-325 Mg Tablet PO 2 tab Q6H PRN Administration Pain Rated 7-10 Diphenhydramine HCl 25 mg 01/29/24 15:23 01/29/24 16:03 Diphenhydramine Hcl Cap 25 Mg Capsule PO 25 mg Q6H PRN Administration Itching Enoxaparin Sodium 30 mg 01/30/24 09:00 01/30/24 08:04 Enoxaparin 30 Mg/0.3 Ml Syringe SUB-Q 30 mg DAILY TERI Administration Fidaxomicin 200 mg 01/29/24 21:00 01/30/24 08:03 Fidaxomicin 200 Mg Tablet PO 02/08/24 20:59 200 mg Q12HR TERI Administration Furosemide 20 mg 01/29/24 09:00 01/29/24 09:26 Furosemide 20 Mg Tablet PO 20 mg DAILY TERI Administration Sodium Chloride 1,000 mls @ 75 mls/hr 01/28/24 19:55 01/30/24 01:29 Normal Saline Iv IV CONT 75 mls/hr .[id number] TERI Administration Piperacillin/Tazobactam/Dextrose 3.375 gm in 50 mls @ 100 mls/hr 01/29/24 00:00 01/30/24 11:49 Zosyn 3.375 Gm/Ns 50 Ml IVPB 100 mls/hr Q6H TERI Administration Losartan Potassium 50 mg 01/29/24 09:00 01/29/24 09:26 Losartan Potassium 50 Mg Tablet PO 50 mg DAILY TERI Administration Metoprolol Succinate 50 mg 01/29/24 09:00 01/30/24 08:02 Metoprolol Succinate Ext Rel 50 Mg Tabcr PO 50 mg DAILY TERI Administration Nicotine 1 patch 01/29/24 09:00 01/30/24 08:03 Nicotine (*Pbkc) 14 Mg Patch TRANSDERM 1 patch DAILY TERI Administration Ondansetron HCl 4 mg 01/28/24 22:26 01/30/24 08:02 Ondansetron Inj 4 Mg/2 Ml Vial IV PUSH 4 mg Q6H PRN Administration Nausea And Vomiting Potassium Chloride 20 meq 01/29/24 09:00 01/30/24 08:02 Potassium Chloride 20 Meq Er Tablet PO 20 meq BID TERI Administration Rosuvastatin Calcium 20 mg 01/29/24 09:00 01/30/24 08:03 Rosuvastatin 20 Mg Tablet PO 20 mg DAILY TERI Administration Radiology Results: ITS Impressions Abdomen/Pelvis CT 01/28/24 13:31 IMPRESSION: 1. 2.8 x 2.3 x 3.2 cm perisigmoid abscess abutting the vagina. 2. Cirrhosis of the liver. 3. Splenic infarct, which may be subacute. 4. 12 mm cystic lesion of the pancreas. The differential diagnosis includes pseudocyst, intraductal papillary mucinous neoplasm (IPMN), mucinous cystic neoplasm (MCN), serous cystadenoma, and neuroendocrine tumor. Consider abdomen MRI without and with contrast in 2 years. 5. 2.3 cm right kidney mass, which may be a hemorrhagic cyst, but renal cell carcinoma cannot be excluded. Abdomen CT without and with contrast is recommended. Labs Labs: Laboratory Results - last 24 hr 01/29/24 01/30/24 17:51 04:56 WBC 6.9 RBC 3.11 L Hgb 9.6 L Hct 29.5 L MCV 94.9 MCH 30.9 MCHC 32.5 RDW 12.8 Plt Count 115 L MPV 11.1 H % Immature Plt Fraction 6.9 Sodium 136 L Potassium 3.8 Chloride 111 H Carbon Dioxide 22 Anion Gap 3 L BUN 17 Creatinine 1.70 H Estim Creat Clear Calc 22 Estimated GFR 30 L Glucose 102 Calcium 7.8 L C. difficile (PCR) Positive A*
[2024-01-30] MEDS: HYDROcodone/acetaminophen (*CRX) 5-325 MG TABLET 1 TAB PO (20:11)
[2024-01-31] VITALS (10 sets, daily range): BP systolic 140–167; BP diastolic 52–67; PULSE 72–86; RESP 16–17; TEMP 36.4–36.5; O2SAT 97–98
[2024-01-31] MEDS: ONDANSETRON INJ 4 MG/2 ML VIAL IV PUSH ×4 (04:23→22:38)
[2024-01-31] MEDS: HYDROcodone/acetaminophen (*CRX) 5-325 MG TABLET 2 TAB PO ×4 (04:23→22:38)
[2024-01-31] MEDS: PIPERACILLN/TAZ 3.375GM/NS50ML 3.375 GM/50 ML BAG IVPB ×4 (06:01→22:36)
[2024-01-31] MEDS: SODIUM CHLORIDE 0.9% IV 1,000 ML 75 ML IV CONT ×2 (06:03→20:44)
[2024-01-31] MEDS: ROSUVASTATIN 20 MG TABLET PO (09:23)
[2024-01-31] MEDS: FIDAXOMICIN 200 MG TABLET PO ×2 (09:23→20:44)
[2024-01-31] MEDS: ENOXAPARIN 30 MG/0.3 ML SYRINGE SUB-Q (09:23)
[2024-01-31] MEDS: NICOTINE (*PBKC) 14 MG PATCH 1 PATCH TRANSDERM (09:23)
[2024-01-31] MEDS: METOPROLOL SUCCINATE EXT REL 50 MG TABCR PO (09:23)
[2024-01-31] MEDS: POTASSIUM CHLORIDE 20 MEQ ER TABLET PO ×2 (09:24→16:37)
--- NOTE | 2024-01-31 11:23 | P.PNIM_ITS ---
Progress Note: A&P Assessment and Plan (1) Abscess of sigmoid colon: Code(s): K63.0 - Abscess of intestine Status: Acute Assessment and Plan: * CT of the abdomen and pelvis showed a 2.8 x 2.3 x 3.2 cm perisigmoid abscess abutting the vagina * general surgery following, treating conservatively * continue Zosyn * blood cultures showing no growth to date on preliminary read 01/30 * General surgery following * Increase to full liquid diet today * Blood cultures still showing no growth to date on preliminary read * Continue Zosyn (2) C. difficile colitis: Code(s): A04.72 - Enterocolitis due to Clostridium difficile, not specified as recurrent Status: Acute Assessment and Plan: * Found to be C diff positive * Started on Dificid 01/30 * continue Dificid * Still having BM's however more loose than watery now (3) UTI (urinary tract infection): Code(s): N39.0 - Urinary tract infection, site not specified Status: Acute Assessment and Plan: * UA showing cloudy urine appearance, urine specific gravity 1.040, 3+ urine protein, 3+ urine blood, positive nitrate, 1+ leukocyte, 3-5 urine RBC, 11-20 urine WBC, 4+ urine bacteria. * Urine culture showing E coli on final read--Zosyn is susceptible * Continue Zosyn for now (4) RUSSELL (acute kidney injury): Code(s): N17.9 - Acute kidney failure, unspecified Status: Acute Assessment and Plan: * initial creatinine 1.50>1.60>1.70> 1.40--trending down today * baseline creatinine 0.90 * continue trend * patient received IV contrast with CT of the abdomen and pelvis * hold nephrotoxic medication including losartan and Lasix * continue IV fluids at 75 ml per hour (5) Hyponatremia: Code(s): E87.1 - Hypo-osmolality and hyponatremia Status: Acute Assessment and Plan: * sodium 133>134>136>136 * continue to trend (6) Splenic infarct: Code(s): D73.5 - Infarction of spleen Status: Acute Assessment and Plan: * CT of the abdomen and pelvis showed splenic infarct which may be subacute * will need to be re-scanned once creatinine normalizes * Will get Hematology consult (7) Congestive heart failure: Code(s): I50.9 - Heart failure, unspecified Status: Chronic Assessment and Plan: * no echo to review * continue metoprolol * hold losartan and Lasix considering RUSSELL (8) Lesion of pancreas: Code(s): K86.9 - Disease of pancreas, unspecified Status: Acute Assessment and Plan: * CT of the abdomen and pelvis showed a 12 mm cystic lesion of the pancreas * will need MRI with and without contrast in 2 years to re-evaluate (9) Kidney mass: Code(s): N28.89 - Other specified disorders of kidney and ureter Status: Acute Assessment and Plan: * CT of the abdomen and pelvis shown a 2.3 cm right kidney mass, which may be a hemorrhagic cyst, but renal cell carcinoma cannot be excluded. * will need a repeat Abdomen CT without and with contrast however we will have to wait until her RUSSELL resolve (10) Cirrhosis: Code(s): K74.60 - Unspecified cirrhosis of liver Status: Acute Assessment and Plan: * CT of the abdomen pelvis showing cirrhosis of the liver * liver enzymes normal * Hepatitis panel negative (11) Hypertension: Code(s): I10 - Essential (primary) hypertension Status: Chronic Assessment and Plan: * blood pressure ranging 118/35-125/60 * losartan hold due to RUSSELL * continue metoprolol Subjective Date/time seen: 01/31/24 11:23 Interval history: Interval history: This is a 73-year-old female who presented to the hospital on 01/28/2024 with complaints of lower abdominal pain. Workup in the hospital included an abdomen/pelvis CT which 2.8 x 2.3 x 3.2 cm vernon sigmoid abscess abutting the vagina, cirrhosis of the liver, splenic infarct which may be subacute, 12 mm cystic lesion of the pancreas, 2.3 cm right kidney mass which may be a cyst-- recommending further imaging. Initial labs showed a white blood cell count 11.3, hemoglobin 11.9, platelet count 123, sodium 133, creatinine 0.50, EGFR 34. UA was obtained which showed a cloudy urine appearance, urine specific gravity 1.040, 3+ urine protein, 3+ urine blood, positive nitrate, 1+ leukocytes, 3-5 urine RBC, 11-20 urine WBC, 4+ urine bacteria. Urine and blood cultures were obtained and are pending. EKG showed sinus rhythm with a rate of 65, QTC 433. She was given a dose of Zofran, morphine, 1 L of normal saline, and Zosyn while in the ED. General surgery was consulted. Subjective: Patient still reporting bloating however pain is more controlled today. She states she is still having multiple bowel movements but it has thickened up in consistency since starting the Dificid. Labs reviewed. Review of Systems Review of Systems: All systems reviewed & are unremarkable except as noted in HPI and below Constitutional: Constitutional: Reports as per HPI and Reports no additional constitutional complaints Eyes: Eyes: Reports as per HPI and Reports no additional eye complaints ENT: Reports system reviewed and no additional complaints, except as documented and Reports as per HPI Cardiovascular: Cardiovascular: Reports as per HPI and Reports no additional cardiovascular complaints Respiratory: Respiratory: Reports as per HPI and Reports no additional respiratory complaints Gastrointestinal: Gastrointestinal: Reports as per HPI and Reports no additional gastrointestinal complaints Genitourinary: Genitourinary: Reports no additional female genitourinary complaints and Reports as per HPI Musculoskeletal: Musculoskeletal: Reports no additional musculoskeletal complaints and Reports as per HPI Integumentary/Breasts: Skin/Breast: Reports system reviewed and no additional complaints, except as docu and Reports as per HPI Neurologic: Reports system reviewed and no additional complaints, except as documented and Reports as per HPI Psychiatric: Psychiatric: Reports no additional psychiatric complaints and Reports as per HPI Exam Narrative: General: In no acute distress, well nourished Cardiac: Normal S1 and S2. No murmur, gallops or friction rubs, peripheral pulses intact. Respiratory: Lungs clear to auscultation, no adventitious lung sounds, currently on room air Gastrointestinal: soft, non-distended, non-tender, normoactive bowel sounds. : voiding without difficulty. Extremities: moves all extremities well, no edema Neuro: Alert and oriented x4 Objective Data Vital Signs Vital Signs: Vital Signs - 24 hr 01/30/24 12:00 01/30/24 14:00 01/30/24 16:00 Temperature 97.7 F Pulse Rate 69 73 69 Respiratory Rate 17 Blood Pressure 128/74 Pulse Oximetry 97 Oxygen Delivery 01/30/24 20:00 01/30/24 20:00 01/30/24 22:46 Temperature 97.9 F Pulse Rate 78 75 Respiratory Rate 16 Blood Pressure 151/58 H Pulse Oximetry 98 Oxygen Delivery Room Air 01/31/24 00:00 01/31/24 04:00 01/31/24 04:27 Temperature 97.7 F Pulse Rate 76 80 76 Respiratory Rate 16 Blood Pressure 147/52 H Pulse Oximetry 98 Oxygen Delivery 01/31/24 08:00 01/31/24 09:23 Temperature Pulse Rate 74 86 Respiratory Rate Blood Pressure Pulse Oximetry Oxygen Delivery Intake/Output Intake/Output: Intake & Output 01/28/24 01/29/24 01/30/24 01/31/24 23:59 23:59 23:59 23:59 Intake Total 600 3040 2750 1430 Output Total 1200 Balance 600 1840 2750 1430 Meds/Results Medications: Active Medications Generic Name Dose Route Start Last Admin Trade Name Freq PRN Reason Stop Dose Admin Hydrocodone Bitart/Acetaminophen 1 tab 01/28/24 23:15 01/30/24 20:11 Hydrocodone/Acetaminophen (*Crx) 5-325 Mg Tablet PO 1 tab Q4H PRN Administration Moderate Pain (4-6) Hydrocodone Bitart/Acetaminophen 2 tab 01/29/24 16:55 01/31/24 10:35 Hydrocodone/Acetaminophen (*Crx) 5-325 Mg Tablet PO 2 tab Q6H PRN Administration Pain Rated 7-10 Diphenhydramine HCl 25 mg 01/29/24 15:23 01/29/24 16:03 Diphenhydramine Hcl Cap 25 Mg Capsule PO 25 mg Q6H PRN Administration Itching Enoxaparin Sodium 30 mg 01/30/24 09:00 01/31/24 09:23 Enoxaparin 30 Mg/0.3 Ml Syringe SUB-Q 30 mg DAILY TERI Administration Fidaxomicin 200 mg 01/29/24 21:00 01/31/24 09:23 Fidaxomicin 200 Mg Tablet PO 02/08/24 20:59 200 mg Q12HR TERI Administration Furosemide 20 mg 01/29/24 09:00 01/29/24 09:26 Furosemide 20 Mg Tablet PO 20 mg DAILY TERI Administration Sodium Chloride 1,000 mls @ 75 mls/hr 01/28/24 19:55 01/31/24 06:03 Normal Saline Iv IV CONT 75 mls/hr .[id number] TERI Administration Piperacillin/Tazobactam/Dextrose 3.375 gm in 50 mls @ 100 mls/hr 01/29/24 00:00 01/31/24 06:31 Zosyn 3.375 Gm/Ns 50 Ml IVPB Infused Q6H TERI Infusion Losartan Potassium 50 mg 01/29/24 09:00 01/29/24 09:26 Losartan Potassium 50 Mg Tablet PO 50 mg DAILY TERI Administration Metoprolol Succinate 50 mg 01/29/24 09:00 12 09:23 Metoprolol Succinate Ext Rel 50 Mg Tabcr PO 50 mg DAILY TERI Administration Nicotine 1 patch 01/29/24 09:00 01/31/24 09:23 Nicotine (*Pbkc) 14 Mg Patch TRANSDERM 1 patch DAILY TERI Administration Ondansetron HCl 4 mg 01/28/24 22:26 01/31/24 10:36 Ondansetron Inj 4 Mg/2 Ml Vial IV PUSH 4 mg Q6H PRN Administration Nausea And Vomiting Potassium Chloride 20 meq 01/29/24 09:00 01/31/24 09:24 Potassium Chloride 20 Meq Er Tablet PO 20 meq BID TERI Administration Rosuvastatin Calcium 20 mg 01/29/24 09:00 01/31/24 09:23 Rosuvastatin 20 Mg Tablet PO 20 mg DAILY TERI Administration Radiology Results: ITS Impressions Abdomen/Pelvis CT 01/28/24 13:31 IMPRESSION: 1. 2.8 x 2.3 x 3.2 cm perisigmoid abscess abutting the vagina. 2. Cirrhosis of the liver. 3. Splenic infarct, which may be subacute. 4. 12 mm cystic lesion of the pancreas. The differential diagnosis includes pseudocyst, intraductal papillary mucinous neoplasm (IPMN), mucinous cystic neoplasm (MCN), serous cystadenoma, and neuroendocrine tumor. Consider abdomen MRI without and with contrast in 2 years. 5. 2.3 cm right kidney mass, which may be a hemorrhagic cyst, but renal cell carcinoma cannot be excluded. Abdomen CT without and with contrast is recommended. Quality VTE Prophylaxis VTE prophylaxis: mechanical ordered
[2024-01-31 11:51] LABS: Basophils Percent Auto 0.4 % (0.2-1.2); Eosinophils Absolute Auto 0.1 K/mm3 (0-0.3); Hematocrit 29.4 % (37.0-47.0); Hemoglobin 9.8 g/dL (12.0-15.0); Immature Granulocyte Absolute 0.03 K/mm3 (0.00-0.031); Immature Granulocyte Percent A 0.5 % (0-0.5); Immature Platelet Fraction Pct 4.5 % (0.9-11.2); Lymphocytes Absolute Auto 0.94 K/mm3 (0.9-3.2); Lymphocytes Percent Auto 17.2 % (18.3-44.2); Mean Corpuscular HGB Conc 33.3 g/dl (32-36); Mean Corpuscular Hemoglobin 30.6 pg (26-34); Mean Corpuscular Volume 91.9 fl (80-100); Mean Platelet Volume 10.7 fl (7.4-10.4); Monocytes Absolute Auto 0.4 K/mm3 (0.1-0.6); Monocytes Percent Auto 7.7 % (2.6-8.5); Neutrophils Percent Auto 72.2 % (45.5-73.1); Platelet Count Result 138 k/mm3 (150-375); Red Cell Distribution Width 12.4 % (11.5-14.5); White Blood Count 5.5 K/mm3 (4.5-10.0)
[2024-01-31 12:22] LABS: Alanine Aminotransferase 11 U/L (6-35); Alkaline Phosphatase 47 U/L (38-126); Anion Gap 2 mmol/L (4-12); Aspartate Amino Transferase 24 U/L (14-36); Bilirubin,Total 0.4 mg/dL (0.2-1.3); Blood Urea Nitrogen 10 mg/dL (7-17); Carbon Dioxide 21 mmol/L (22-30); Chloride 113 mmol/L (98-107); Estimated CRCL calculation 27 ml/min; Estimated Glomerular Filt Rate 37; Glucose 97 mg/dL (65-110); Potassium 4.2 mmol/L (3.4-5.0); Sodium 136 mmol/L (137-145)
--- NOTE | 2024-01-31 13:45 | PM.PNGS ---
Progress Note: A&P Assessment and Plan (1) Abscess of sigmoid colon: Code(s): K63.0 - Abscess of intestine Status: Acute Assessment and Plan: exam benign, will advance to low fiber diet, cont abx, OOB Subjective Subjective Date/Time Seen: 01/31/24 13:45 Interval history: feels better, no pain, some mild bloating, aye full liquids Review of Systems Review of Systems: All systems reviewed & are unremarkable except as noted in HPI and below Exam Const: General: cooperative, comfortable and no acute distress Resp: Auscultation: diminished lung sounds Cardio: Rate: regular rate Rhythm: regular rhythm GI: Inspection: normal to inspection and distended GI Palp: No abdominal tenderness and Yes Soft to palpation Objective Data Vital Signs Vital Signs: Vital Signs - 24 hr 01/30/24 14:00 01/30/24 16:00 01/30/24 20:00 Temperature 36.5 C Pulse Rate 73 69 Respiratory Rate 17 Blood Pressure 128/74 Pulse Oximetry 97 Oxygen Delivery Room Air 01/30/24 20:00 01/30/24 22:46 01/31/24 00:00 Temperature 36.6 C Pulse Rate 78 75 76 Respiratory Rate 16 Blood Pressure 151/58 H Pulse Oximetry 98 Oxygen Delivery 01/31/24 04:00 01/31/24 04:27 01/31/24 08:00 Temperature 36.5 C Pulse Rate 80 76 74 Respiratory Rate 16 Blood Pressure 147/52 H Pulse Oximetry 98 Oxygen Delivery 01/31/24 09:23 Temperature Pulse Rate 86 Respiratory Rate Blood Pressure Pulse Oximetry Oxygen Delivery Intake/Output Intake/Output: Intake & Output 01/28/24 01/29/24 01/30/24 01/31/24 23:59 23:59 23:59 23:59 Intake Total 600 3040 2750 1912 Output Total 1200 Balance 600 1840 2750 1912 Meds/Results Medications: Active Medications Generic Name Dose Route Start Last Admin Trade Name Freq PRN Reason Stop Dose Admin Hydrocodone Bitart/Acetaminophen 1 tab 01/28/24 23:15 01/30/24 20:11 Hydrocodone/Acetaminophen (*Crx) 5-325 Mg Tablet PO 1 tab Q4H PRN Administration Moderate Pain (4-6) Hydrocodone Bitart/Acetaminophen 2 tab 01/29/24 16:55 01/31/24 10:35 Hydrocodone/Acetaminophen (*Crx) 5-325 Mg Tablet PO 2 tab Q6H PRN Administration Pain Rated 7-10 Diphenhydramine HCl 25 mg 01/29/24 15:23 01/29/24 16:03 Diphenhydramine Hcl Cap 25 Mg Capsule PO 25 mg Q6H PRN Administration Itching Enoxaparin Sodium 30 mg 01/30/24 09:00 01/31/24 09:23 Enoxaparin 30 Mg/0.3 Ml Syringe SUB-Q 30 mg DAILY TERI Administration Fidaxomicin 200 mg 01/29/24 21:00 01/31/24 09:23 Fidaxomicin 200 Mg Tablet PO 02/08/24 20:59 200 mg Q12HR TERI Administration Furosemide 20 mg 01/29/24 09:00 01/29/24 09:26 Furosemide 20 Mg Tablet PO 20 mg DAILY TERI Administration Sodium Chloride 1,000 mls @ 75 mls/hr 01/28/24 19:55 01/31/24 06:03 Normal Saline Iv IV CONT 75 mls/hr .[id number] TERI Administration Piperacillin/Tazobactam/Dextrose 3.375 gm in 50 mls @ 100 mls/hr 01/29/24 00:00 01/31/24 12:43 Zosyn 3.375 Gm/Ns 50 Ml IVPB Infused Q6H TERI Infusion Losartan Potassium 50 mg 01/29/24 09:00 01/29/24 09:26 Losartan Potassium 50 Mg Tablet PO 50 mg DAILY TERI Administration Metoprolol Succinate 50 mg 01/29/24 09:00 01/31/24 09:23 Metoprolol Succinate Ext Rel 50 Mg Tabcr PO 50 mg DAILY TERI Administration Nicotine 1 patch 01/29/24 09:00 01/31/24 09:23 Nicotine (*Pbkc) 14 Mg Patch TRANSDERM 1 patch DAILY TERI Administration Ondansetron HCl 4 mg 01/28/24 22:26 01/31/24 10:36 Ondansetron Inj 4 Mg/2 Ml Vial IV PUSH 4 mg Q6H PRN Administration Nausea And Vomiting Potassium Chloride 20 meq 01/29/24 09:00 01/31/24 09:24 Potassium Chloride 20 Meq Er Tablet PO 20 meq BID TERI Administration Rosuvastatin Calcium 20 mg 01/29/24 09:00 01/31/24 09:23 Rosuvastatin 20 Mg Tablet PO 20 mg DAILY TERI Administration Radiology Results: ITS Impressions Abdomen/Pelvis CT 01/28/24 13:31 IMPRESSION: 1. 2.8 x 2.3 x 3.2 cm perisigmoid abscess abutting the vagina. 2. Cirrhosis of the liver. 3. Splenic infarct, which may be subacute. 4. 12 mm cystic lesion of the pancreas. The differential diagnosis includes pseudocyst, intraductal papillary mucinous neoplasm (IPMN), mucinous cystic neoplasm (MCN), serous cystadenoma, and neuroendocrine tumor. Consider abdomen MRI without and with contrast in 2 years. 5. 2.3 cm right kidney mass, which may be a hemorrhagic cyst, but renal cell carcinoma cannot be excluded. Abdomen CT without and with contrast is recommended. Labs Labs: Laboratory Results - last 24 hr 01/31/24 11:44 WBC 5.5 RBC 3.20 L Hgb 9.8 L Hct 29.4 L MCV 91.9 MCH 30.6 MCHC 33.3 RDW 12.4 Plt Count 138 L MPV 10.7 H Immature Gran % (Auto) 0.5 Neut % (Auto) 72.2 Lymph % (Auto) 17.2 L Mclennan % (Auto) 7.7 Eos % (Auto) 2.0 Baso % (Auto) 0.4 Lymph # (Auto) 0.94 Mclennan # (Auto) 0.4 Eos # (Auto) 0.1 Baso # (Auto) 0.0 Abs Immat Gran (auto) 0.03 Absolute Neuts (auto) 4.0 Absolute Nucleated RBC 0.000 Nucleated RBC % 0.0 % Immature Plt Fraction 4.5 Sodium 136 L Potassium 4.2 Chloride 113 H Carbon Dioxide 21 L Anion Gap 2 L BUN 10 D Creatinine 1.40 H Estim Creat Clear Calc 27 Estimated GFR 37 L Glucose 97 Calcium 8.0 L Total Bilirubin 0.4 AST 24 ALT 11 Alkaline Phosphatase 47 Total Protein 6.0 L Albumin 3.0 L
--- NOTE | 2024-01-31 14:38 | P.CONS_ITS ---
Assessment and Plan Assessment and plan (1) Splenic abscess: Code(s): D73.3 - Abscess of spleen Status: Acute Plan This is a 73 y/o lady admitted to the hospital for evaluation of abdominal pain and diarrhea. She had had symptoms for six days prior to admission. stools were positive for c-difficile. She has been on antibiotics with significant improvement in her symptoms. She was found to have a splenic abscess and she was referred for evaluation and co-management. Plan: We will continue observation with serial abdominal CT scans. If splenic abscess does not completely resolve we will drain it; If it gets worse laparotomy will be a consideration. 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 Anxiety Congestive heart failure Hyperlipidemia Hypertension Surgical History Surgical History History of appendectomy H/O hernia repair H/O colonoscopy with polypectomy The patient stated that she had 16 polyps removed at 1 time H/O bladder repair surgery X3 History of colectomy History of hysterectomy History of cholecystectomy Family History Family History Father History of open heart surgery Sibling History of open heart surgery Sibling H/O heart artery stent Pancreatic cancer Mother Heart disease CHF (congestive heart failure) COPD (chronic obstructive pulmonary disease) Social History Social History Social History: The patient continues to smoke a half a pack a cigarettes a day for 54 years. She lives with her brother and [id number]. The patient has 2 children. The patient is . The patient was essentially a homemaker. The patient smokes marijuana 2 to 3 times a week. The patient denies any alcohol or illicit drugs. The patient desires to be a full code and chooses her brother to be the durable power defense attorney for healthcare. The patient does not want to live in a vegetative state and she states her brother is aware of this. Smoking packs per day: 0.5 Smoking cigarettes per day: 10.0 Years smoked: 50 Smoking pack-years: 25.00 Smoking status: Current every day smoker Tobacco type: cigarettes Alcohol intake: never Substance use type: marijuana Other substance usage details: 2-3 times a week Do You Feel Safe in your Home?: Yes Lack of Transportation: No Lack of Food: Never True Current Housing: I Have Housing Concerned About Future Housing: No Difficulty Paying Gas/Electric Bills: No Difficulty Paying for Meds: No Currently Unemployed: No Education: High School Diploma/GED Difficulty w/ Childcare or Family Care: No Spiritual care concerns: No Meds Home Medications and Allergies Home Medications ?Medication ?Instructions ?Recorded ?Confirmed ?Type losartan 50 mg tablet 50 mg PO DAILY 10/15/20 01/28/24 History metoprolol succinate 50 mg 50 mg PO DAILY 10/15/20 01/28/24 History tablet,extended release 24 hr furosemide 40 mg tablet 20 mg (1/2 x 40 mg) PO DAILY #30 10/17/20 01/28/24 Rx tabs potassium chloride 20 mEq 20 meq PO BID #60 tabs 10/17/20 01/28/24 Rx tablet,extended release (K-Tab) rosuvastatin 20 mg tablet 20 mg PO DAILY 01/28/24 01/28/24 History Allergies Allergy/AdvReac Type Severity Reaction Status Date / Time codeine Allergy Vomiting Verified 10/15/20 15:55 Sulfa (Sulfonamide Allergy Hives Verified 10/15/20 15:55 Antibiotics) Vital Signs Vital Signs - 24 hr 01/30/24 16:00 01/30/24 20:00 01/30/24 20:00 Temperature Pulse Rate 69 78 Respiratory Rate Blood Pressure Pulse Oximetry Oxygen Delivery Room Air 01/30/24 22:46 01/31/24 00:00 01/31/24 04:00 Temperature 36.6 C Pulse Rate 75 76 80 Respiratory Rate 16 Blood Pressure 151/58 H Pulse Oximetry 98 Oxygen Delivery 01/31/24 04:27 01/31/24 08:00 01/31/24 09:23 Temperature 36.5 C Pulse Rate 76 74 86 Respiratory Rate 16 Blood Pressure 147/52 H Pulse Oximetry 98 Oxygen Delivery 01/31/24 13:59 Temperature 36.4 C Pulse Rate 73 Respiratory Rate 17 Blood Pressure 140/62 Pulse Oximetry 97 Oxygen Delivery Exam 2 GI: Other: Generally her abdomen is moderately distended. Bowel sounds are hyperactive. There is moderate generalized tenderness of the abdomen. Results Labs 01/31/24 11:44 01/31/24 11:44 Labs: Short CBC 01/31/24 Range/Units 11:44 WBC 5.5 (4.5-10.0) K/mm3 Hgb 9.8 L (12.0-15.0) g/dL Hct 29.4 L (37.0-47.0) % Plt Count 138 L (150-375) k/mm3 BMP 01/31/24 11:44 Sodium 136 L Potassium 4.2 Chloride 113 H Carbon Dioxide 21 L BUN 10 D Creatinine 1.40 H Glucose 97 Calcium 8.0 L Liver Function 01/31/24 Range/Units 11:44 Total Bilirubin 0.4 (0.2-1.3) mg/dL AST 24 (14-36) U/L ALT 11 (6-35) U/L Alkaline Phosphatase 47 (38-126) U/L Albumin 3.0 L (3.5-5.1) g/dL
--- NOTE | 2024-01-31 14:41 | WPDCN ---
Assessment and Plan Assessment and plan (1) Splenic abscess: Code(s): D73.3 - Abscess of spleen Status: Acute Plan This is a 73 y/o lady admitted to the hospital after having severe diarrhea and abdominal pain for 6 days. She was found to have C-difficile and she has been on antibiotics. Her symptoms are much improved. A CT scan shows a splenic abscess and hematology consult is requested for evaluation and co management. Plan: Continue observation of splenic abscess with serial CT scans. 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 Anxiety Congestive heart failure Hyperlipidemia Hypertension Surgical History Surgical History History of appendectomy H/O hernia repair H/O colonoscopy with polypectomy The patient stated that she had 16 polyps removed at 1 time H/O bladder repair surgery X3 History of colectomy History of hysterectomy History of cholecystectomy Family History Family History Father History of open heart surgery Sibling History of open heart surgery Sibling H/O heart artery stent Pancreatic cancer Mother Heart disease CHF (congestive heart failure) COPD (chronic obstructive pulmonary disease) Social History Social History Social History: The patient continues to smoke a half a pack a cigarettes a day for 54 years. She lives with her brother and [id number]. The patient has 2 children. The patient is . The patient was essentially a homemaker. The patient smokes marijuana 2 to 3 times a week. The patient denies any alcohol or illicit drugs. The patient desires to be a full code and chooses her brother to be the durable power state's attorney for healthcare. The patient does not want to live in a vegetative state and she states her brother is aware of this. Smoking packs per day: 0.5 Smoking cigarettes per day: 10.0 Years smoked: 50 Smoking pack-years: 25.00 Smoking status: Current every day smoker Tobacco type: cigarettes Alcohol intake: never Substance use type: marijuana Other substance usage details: 2-3 times a week Do You Feel Safe in your Home?: Yes Lack of Transportation: No Lack of Food: Never True Current Housing: I Have Housing Concerned About Future Housing: No Difficulty Paying Gas/Electric Bills: No Difficulty Paying for Meds: No Currently Unemployed: No Education: High School Diploma/GED Difficulty w/ Childcare or Family Care: No Spiritual care concerns: No Meds Home Medications and Allergies Home Medications ?Medication ?Instructions ?Recorded ?Confirmed ?Type losartan 50 mg tablet 50 mg PO DAILY 10/15/20 01/28/24 History metoprolol succinate 50 mg 50 mg PO DAILY 10/15/20 01/28/24 History tablet,extended release 24 hr furosemide 40 mg tablet 20 mg (1/2 x 40 mg) PO DAILY #30 10/17/20 01/28/24 Rx tabs potassium chloride 20 mEq 20 meq PO BID #60 tabs 10/17/20 01/28/24 Rx tablet,extended release (K-Tab) rosuvastatin 20 mg tablet 20 mg PO DAILY 01/28/24 01/28/24 History Allergies Allergy/AdvReac Type Severity Reaction Status Date / Time codeine Allergy Vomiting Verified 10/15/20 15:55 Sulfa (Sulfonamide Allergy Hives Verified 10/15/20 15:55 Antibiotics) Vital Signs Vital Signs - 24 hr 01/30/24 16:00 01/30/24 20:00 01/30/24 20:00 Temperature Pulse Rate 69 78 Respiratory Rate Blood Pressure Pulse Oximetry Oxygen Delivery Room Air 01/30/24 22:46 01/31/24 00:00 01/31/24 04:00 Temperature 36.6 C Pulse Rate 75 76 80 Respiratory Rate 16 Blood Pressure 151/58 H Pulse Oximetry 98 Oxygen Delivery 01/31/24 04:27 01/31/24 08:00 01/31/24 09:23 Temperature 36.5 C Pulse Rate 76 74 86 Respiratory Rate 16 Blood Pressure 147/52 H Pulse Oximetry 98 Oxygen Delivery 01/31/24 13:59 Temperature 36.4 C Pulse Rate 73 Respiratory Rate 17 Blood Pressure 140/62 Pulse Oximetry 97 Oxygen Delivery Results Labs 01/31/24 11:44 01/31/24 11:44 Labs: Short CBC 01/31/24 Range/Units 11:44 WBC 5.5 (4.5-10.0) K/mm3 Hgb 9.8 L (12.0-15.0) g/dL Hct 29.4 L (37.0-47.0) % Plt Count 138 L (150-375) k/mm3 BMP 01/31/24 11:44 Sodium 136 L Potassium 4.2 Chloride 113 H Carbon Dioxide 21 L BUN 10 D Creatinine 1.40 H Glucose 97 Calcium 8.0 L Liver Function 01/31/24 Range/Units 11:44 Total Bilirubin 0.4 (0.2-1.3) mg/dL AST 24 (14-36) U/L ALT 11 (6-35) U/L Alkaline Phosphatase 47 (38-126) U/L Albumin 3.0 L (3.5-5.1) g/dL
--- NOTE | 2024-01-31 17:08 | P.CONS_ITS ---
HPI Data of Consult Date/Time: This is a 73-year-old lady admitted with diffuse abdominal pain and diagnosed with C difficile positive colitis. She was found on CT scan of the abdomen to have a splenic abscess and she was referred to Hematology for evaluation. Her abdominal pain is S showing some improvement on antibiotics. Her blood counts remain stable and we will continue to observe her without further intervention. We will do a CT scan of abdomen for evaluation of splenic abscess. 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 Anxiety Congestive heart failure Hyperlipidemia Hypertension Surgical History Surgical History History of appendectomy H/O hernia repair H/O colonoscopy with polypectomy The patient stated that she had 16 polyps removed at 1 time H/O bladder repair surgery X3 History of colectomy History of hysterectomy History of cholecystectomy Family History Family History Father History of open heart surgery Sibling History of open heart surgery Sibling H/O heart artery stent Pancreatic cancer Mother Heart disease CHF (congestive heart failure) COPD (chronic obstructive pulmonary disease) Social History Social History Social History: The patient continues to smoke a half a pack a cigarettes a day for 54 years. She lives with her brother and [id number]. The patient has 2 children. The patient is . The patient was essentially a homemaker. The patient smokes marijuana 2 to 3 times a week. The patient denies any alcohol or illicit drugs. The patient desires to be a full code and chooses her brother to be the durable power messenger office for healthcare. The patient does not want to live in a vegetative state and she states her brother is aware of this. Smoking packs per day: 0.5 Smoking cigarettes per day: 10.0 Years smoked: 50 Smoking pack-years: 25.00 Smoking status: Current every day smoker Tobacco type: cigarettes Alcohol intake: never Substance use type: marijuana Other substance usage details: 2-3 times a week Do You Feel Safe in your Home?: Yes Lack of Transportation: No Lack of Food: Never True Current Housing: I Have Housing Concerned About Future Housing: No Difficulty Paying Gas/Electric Bills: No Difficulty Paying for Meds: No Currently Unemployed: No Education: High School Diploma/GED Difficulty w/ Childcare or Family Care: No Spiritual care concerns: No Meds Home Medications and Allergies Home Medications ?Medication ?Instructions ?Recorded ?Confirmed ?Type losartan 50 mg tablet 50 mg PO DAILY 10/15/20 01/28/24 History metoprolol succinate 50 mg 50 mg PO DAILY 10/15/20 01/28/24 History tablet,extended release 24 hr furosemide 40 mg tablet 20 mg (1/2 x 40 mg) PO DAILY #30 10/17/20 01/28/24 Rx tabs potassium chloride 20 mEq 20 meq PO BID #60 tabs 10/17/20 01/28/24 Rx tablet,extended release (K-Tab) rosuvastatin 20 mg tablet 20 mg PO DAILY 01/28/24 01/28/24 History Allergies Allergy/AdvReac Type Severity Reaction Status Date / Time codeine Allergy Vomiting Verified 10/15/20 15:55 Sulfa (Sulfonamide Allergy Hives Verified 10/15/20 15:55 Antibiotics) Vital Signs Vital Signs - 24 hr 01/30/24 20:00 01/30/24 20:00 01/30/24 22:46 Temperature 36.6 C Pulse Rate 78 75 Respiratory Rate 16 Blood Pressure 151/58 H Pulse Oximetry 98 Oxygen Delivery Room Air 01/31/24 00:00 01/31/24 04:00 01/31/24 04:27 Temperature 36.5 C Pulse Rate 76 80 76 Respiratory Rate 16 Blood Pressure 147/52 H Pulse Oximetry 98 Oxygen Delivery 01/31/24 08:00 01/31/24 09:23 01/31/24 12:00 Temperature Pulse Rate 74 86 75 Respiratory Rate Blood Pressure Pulse Oximetry Oxygen Delivery 01/31/24 13:59 01/31/24 16:00 Temperature 36.4 C Pulse Rate 73 72 Respiratory Rate 17 Blood Pressure 140/62 Pulse Oximetry 97 Oxygen Delivery Results Labs 02/03/24 05:01 02/03/24 05:01 Labs: Short CBC 01/31/24 Range/Units 11:44 WBC 5.5 (4.5-10.0) K/mm3 Hgb 9.8 L (12.0-15.0) g/dL Hct 29.4 L (37.0-47.0) % Plt Count 138 L (150-375) k/mm3 BMP 01/31/24 11:44 Sodium 136 L Potassium 4.2 Chloride 113 H Carbon Dioxide 21 L BUN 10 D Creatinine 1.40 H Glucose 97 Calcium 8.0 L Liver Function 01/31/24 Range/Units 11:44 Total Bilirubin 0.4 (0.2-1.3) mg/dL AST 24 (14-36) U/L ALT 11 (6-35) U/L Alkaline Phosphatase 47 (38-126) U/L Albumin 3.0 L (3.5-5.1) g/dL Attestation Supervising Provider Attestation The patient is complaining of nonspecific low back pain. Her abdominal pain continued to improve. Abdomen is soft and her bowel sounds are relatively normal at this time. Plan: Serial CT scans of the abdomen to evaluate splenic abscess.
[2024-02-01] VITALS (11 sets, daily range): BP systolic 145–186; BP diastolic 53–72; PULSE 73–90; RESP 16–22; TEMP 35.9–36.6; O2SAT 98–100
[2024-02-01] MEDS: PIPERACILLN/TAZ 3.375GM/NS50ML 3.375 GM/50 ML BAG IVPB ×4 (05:44→23:35)
[2024-02-01 06:03] LABS: Basophils Percent Auto 0.4 % (0.2-1.2); Eosinophils Absolute Auto 0.1 K/mm3 (0-0.3); Eosinophils Percent Auto 2.4 % (0-4.4); Hematocrit 29.8 % (37.0-47.0); Hemoglobin 9.7 g/dL (12.0-15.0); Immature Granulocyte Absolute 0.03 K/mm3 (0.00-0.031); Immature Granulocyte Percent A 0.6 % (0-0.5); Lymphocytes Absolute Auto 1.09 K/mm3 (0.9-3.2); Lymphocytes Percent Auto 23.5 % (18.3-44.2); Mean Corpuscular HGB Conc 32.6 g/dl (32-36); Mean Corpuscular Hemoglobin 30.1 pg (26-34); Mean Corpuscular Volume 92.5 fl (80-100); Mean Platelet Volume 10.7 fl (7.4-10.4); Monocytes Absolute Auto 0.3 K/mm3 (0.1-0.6); Monocytes Percent Auto 7.3 % (2.6-8.5); Neutrophils Absolute Auto 3.1 K/mm3 (1.3-6.7); Neutrophils Percent Auto 65.8 % (45.5-73.1); Platelet Count Result 144 k/mm3 (150-375); Red Blood Count 3.22 M/mm3 (4.2-5.4); Red Cell Distribution Width 12.3 % (11.5-14.5); White Blood Count 4.6 K/mm3 (4.5-10.0)
[2024-02-01 06:11] LABS: Alanine Aminotransferase 10 U/L (6-35); Albumin Level 2.7 g/dL (3.5-5.1); Alkaline Phosphatase 49 U/L (38-126); Anion Gap 1 mmol/L (4-12); Aspartate Amino Transferase 24 U/L (14-36); Bilirubin,Total 0.3 mg/dL (0.2-1.3); Blood Urea Nitrogen 7 mg/dL (7-17); Calcium 7.9 mg/dL (8.4-10.2); Carbon Dioxide 20 mmol/L (22-30); Chloride 114 mmol/L (98-107); Estimated CRCL calculation 29 ml/min; Estimated Glomerular Filt Rate 40; Glucose 92 mg/dL (65-110); Potassium 4.2 mmol/L (3.4-5.0); Sodium 135 mmol/L (137-145)
--- NOTE | 2024-02-01 07:45 | P.PNIM_ITS ---
Progress Note: A&P Assessment and Plan (1) Abscess of sigmoid colon: Code(s): K63.0 - Abscess of intestine Status: Acute Assessment and Plan: * CT of the abdomen and pelvis showed a 2.8 x 2.3 x 3.2 cm perisigmoid abscess abutting the vagina * general surgery following, treating conservatively * continue Zosyn * blood cultures showing no growth to date on preliminary read 01/30 * General surgery following * Increase to full liquid diet today * Blood cultures still showing no growth to date on preliminary read * Continue Zosyn 01/31 * Continue full liquid diet * Continue Zofran for nausea * Blood culture showing no growth to date on preliminary read * General surgery continues to follow * Continue Zosyn (2) C. difficile colitis: Code(s): A04.72 - Enterocolitis due to Clostridium difficile, not specified as recurrent Status: Acute Assessment and Plan: * Found to be C diff positive * Started on Dificid 01/30 * continue Dificid * Still having BM's however more loose than watery now 01/31 * Bowel movements have slowed down and have become more solid * Continue Dificid (3) UTI (urinary tract infection): Code(s): N39.0 - Urinary tract infection, site not specified Status: Acute Assessment and Plan: * UA showing cloudy urine appearance, urine specific gravity 1.040, 3+ urine protein, 3+ urine blood, positive nitrate, 1+ leukocyte, 3-5 urine RBC, 11-20 urine WBC, 4+ urine bacteria. * Urine culture showing E coli on final read--Zosyn is susceptible * Continue Zosyn for now (4) RUSSELL (acute kidney injury): Code(s): N17.9 - Acute kidney failure, unspecified Status: Acute Assessment and Plan: * initial creatinine 1.50>1.60>1.70> 1.40>1.3--trending down today * baseline creatinine 0.90 * continue trend * patient received IV contrast with CT of the abdomen and pelvis * hold nephrotoxic medication including losartan and Lasix Will go ahead and discontinue IV fluids today (5) Hyponatremia: Code(s): E87.1 - Hypo-osmolality and hyponatremia Status: Acute Assessment and Plan: * sodium 133>134>136>136>135 * continue to trend (6) Splenic infarct: Code(s): D73.5 - Infarction of spleen Status: Acute Assessment and Plan: * CT of the abdomen and pelvis showed splenic infarct which may be subacute * will need to be re-scanned once creatinine normalizes * Hematology following (7) Congestive heart failure: Code(s): I50.9 - Heart failure, unspecified Status: Chronic Assessment and Plan: * no echo to review * continue metoprolol * hold losartan and Lasix considering RUSSELL (8) Lesion of pancreas: Code(s): K86.9 - Disease of pancreas, unspecified Status: Acute Assessment and Plan: * CT of the abdomen and pelvis showed a 12 mm cystic lesion of the pancreas * will need MRI with and without contrast in 2 years to re-evaluate (9) Kidney mass: Code(s): N28.89 - Other specified disorders of kidney and ureter Status: Acute Assessment and Plan: * CT of the abdomen and pelvis shown a 2.3 cm right kidney mass, which may be a hemorrhagic cyst, but renal cell carcinoma cannot be excluded. * will need a repeat Abdomen CT without and with contrast however we will have to wait until her RUSSELL resolve (10) Cirrhosis: Code(s): K74.60 - Unspecified cirrhosis of liver Status: Acute Assessment and Plan: * CT of the abdomen pelvis showing cirrhosis of the liver * liver enzymes normal * Hepatitis panel negative (11) Hypertension: Code(s): I10 - Essential (primary) hypertension Status: Chronic Assessment and Plan: * blood pressure ranging 118/35-125/60 * losartan hold due to RUSSELL * continue metoprolol Time Spent With Patient Time with patient: 15 - 25 minutes Subjective Date/time seen: 02/01/24 07:45 Interval history: Interval history: This is a 73-year-old female who presented to the hospital on 01/28/2024 with complaints of lower abdominal pain. Workup in the hospital included an abdomen/pelvis CT which 2.8 x 2.3 x 3.2 cm vernon sigmoid abscess abutting the vagina, cirrhosis of the liver, splenic infarct which may be subacute, 12 mm cystic lesion of the pancreas, 2.3 cm right kidney mass which may be a cyst-- recommending further imaging. Initial labs showed a white blood cell count 11.3, hemoglobin 11.9, platelet count 123, sodium 133, creatinine 0.50, EGFR 34. UA was obtained which showed a cloudy urine appearance, urine specific gravity 1.040, 3+ urine protein, 3+ urine blood, positive nitrate, 1+ leukocytes, 3-5 urine RBC, 11-20 urine WBC, 4+ urine bacteria. Urine and blood cultures were obtained and are pending. EKG showed sinus rhythm with a rate of 65, QTC 433. She was given a dose of Zofran, morphine, 1 L of normal saline, and Zosyn while in the ED. General surgery was consulted. Subjective: Patient reporting headache and nausea today. Labs reviewed. Review of Systems Review of Systems: 12 systems were reviewed and are negativ e except for as per HPI. All systems reviewed & are unremarkable except as noted in HPI and below Constitutional: Constitutional: Reports as per HPI and Reports no additional constitutional complaints Eyes: Eyes: Reports as per HPI and Reports no additional eye complaints ENT: Reports system reviewed and no additional complaints, except as documented and Reports as per HPI Cardiovascular: Cardiovascular: Reports as per HPI and Reports no additional cardiovascular complaints Respiratory: Respiratory: Reports as per HPI and Reports no additional respiratory complaints Gastrointestinal: Gastrointestinal: Reports as per HPI and Reports no additional gastrointestinal complaints Genitourinary: Genitourinary: Reports no additional female genitourinary complaints and Reports as per HPI Musculoskeletal: Musculoskeletal: Reports no additional musculoskeletal complaints and Reports as per HPI Integumentary/Breasts: Skin/Breast: Reports system reviewed and no additional complaints, except as docu and Reports as per HPI Neurologic: Reports system reviewed and no additional complaints, except as documented and Reports as per HPI Psychiatric: Psychiatric: Reports no additional psychiatric complaints and Reports as per HPI Exam Narrative: General: In no acute distress, well nourished Cardiac: Normal S1 and S2. No murmur, gallops or friction rubs, peripheral pulses intact. Respiratory: Lungs clear to auscultation, no adventitious lung sounds, currently on room air Gastrointestinal: soft, non-distended, non-tender, normoactive bowel sounds. : voiding without difficulty. Extremities: moves all extremities well, no edema Neuro: Alert and oriented x4 Objective Data Vital Signs Vital Signs: Vital Signs - 24 hr 01/31/24 08:00 01/31/24 09:23 01/31/24 12:00 Temperature Pulse Rate 74 86 75 Respiratory Rate Blood Pressure Pulse Oximetry Oxygen Delivery 01/31/24 13:59 01/31/24 16:00 01/31/24 20:00 Temperature 97.6 F Pulse Rate 73 72 72 Respiratory Rate 17 17 Blood Pressure 140/62 Pulse Oximetry 97 97 Oxygen Delivery Room Air 01/31/24 20:00 01/31/24 20:38 02/01/24 00:00 Temperature 97.6 F Pulse Rate 73 79 73 Respiratory Rate 16 Blood Pressure 167/67 H Pulse Oximetry 97 Oxygen Delivery 02/01/24 04:00 02/01/24 06:43 Temperature 97.7 F Pulse Rate 74 76 Respiratory Rate 16 Blood Pressure 161/72 H Pulse Oximetry 100 Oxygen Delivery Intake/Output Intake/Output: Intake & Output 01/29/24 01/30/24 01/31/24 02/01/24 23:59 23:59 23:59 23:59 Intake Total 3040 2750 3252 400 Output Total 1200 Balance 1840 2750 3252 400 Meds/Results Medications: Active Medications Generic Name Dose Route Start Last Admin Trade Name Freq PRN Reason Stop Dose Admin Hydrocodone Bitart/Acetaminophen 1 tab 01/28/24 23:15 01/30/24 20:11 Hydrocodone/Acetaminophen (*Crx) 5-325 Mg Tablet PO 1 tab Q4H PRN Administration Moderate Pain (4-6) Hydrocodone Bitart/Acetaminophen 2 tab 01/29/24 16:55 01/31/24 22:38 Hydrocodone/Acetaminophen (*Crx) 5-325 Mg Tablet PO 2 tab Q6H PRN Administration Pain Rated 7-10 Diphenhydramine HCl 25 mg 01/29/24 15:23 01/29/24 16:03 Diphenhydramine Hcl Cap 25 Mg Capsule PO 25 mg Q6H PRN Administration Itching Enoxaparin Sodium 30 mg 01/30/24 09:00 01/31/24 09:23 Enoxaparin 30 Mg/0.3 Ml Syringe SUB-Q 30 mg DAILY TERI Administration Fidaxomicin 200 mg 01/29/24 21:00 01/31/24 20:44 Fidaxomicin 200 Mg Tablet PO 02/08/24 20:59 200 mg Q12HR TERI Administration Furosemide 20 mg 01/29/24 09:00 01/29/24 09:26 Furosemide 20 Mg Tablet PO 20 mg DAILY TERI Administration Sodium Chloride 1,000 mls @ 75 mls/hr 01/28/24 19:55 01/31/24 20:44 Normal Saline Iv IV CONT 75 mls/hr .[id number] TERI Administration Piperacillin/Tazobactam/Dextrose 3.375 gm in 50 mls @ 100 mls/hr 01/29/24 00:00 02/01/24 05:44 Zosyn 3.375 Gm/Ns 50 Ml IVPB 100 mls/hr Q6H TERI Administration Losartan Potassium 50 mg 01/29/24 09:00 01/29/24 09:26 Losartan Potassium 50 Mg Tablet PO 50 mg DAILY TERI Administration Metoprolol Succinate 50 mg 01/29/24 09:00 01/31/24 09:23 Metoprolol Succinate Ext Rel 50 Mg Tabcr PO 50 mg DAILY TERI Administration Nicotine 1 patch 01/29/24 09:00 01/31/24 09:23 Nicotine (*Pbkc) 14 Mg Patch TRANSDERM 1 patch DAILY TERI Administration Ondansetron HCl 4 mg 01/28/24 22:26 01/31/24 22:38 Ondansetron Inj 4 Mg/2 Ml Vial IV PUSH 4 mg Q6H PRN Administration Nausea And Vomiting Potassium Chloride 20 meq 01/29/24 09:00 01/31/24 16:37 Potassium Chloride 20 Meq Er Tablet PO 20 meq BID TERI Administration Rosuvastatin Calcium 20 mg 01/29/24 09:00 01/31/24 09:23 Rosuvastatin 20 Mg Tablet PO 20 mg DAILY TERI Administration Radiology Results: ITS Impressions Abdomen/Pelvis CT 01/28/24 13:31 IMPRESSION: 1. 2.8 x 2.3 x 3.2 cm perisigmoid abscess abutting the vagina. 2. Cirrhosis of the liver. 3. Splenic infarct, which may be subacute. 4. 12 mm cystic lesion of the pancreas. The differential diagnosis includes pseudocyst, intraductal papillary mucinous neoplasm (IPMN), mucinous cystic neoplasm (MCN), serous cystadenoma, and neuroendocrine tumor. Consider abdomen MRI without and with contrast in 2 years. 5. 2.3 cm right kidney mass, which may be a hemorrhagic cyst, but renal cell carcinoma cannot be excluded. Abdomen CT without and with contrast is recommended. Labs Labs: Laboratory Results - last 24 hr 01/31/24 02/01/24 11:44 05:25 WBC 5.5 4.6 RBC 3.20 L 3.22 L Hgb 9.8 L 9.7 L Hct 29.4 L 29.8 L MCV 91.9 92.5 MCH 30.6 30.1 MCHC 33.3 32.6 RDW 12.4 12.3 Plt Count 138 L 144 L MPV 10.7 H 10.7 H Immature Gran % (Auto) 0.5 0.6 H Neut % (Auto) 72.2 65.8 Lymph % (Auto) 17.2 L 23.5 [place] % (Auto) 7.7 7.3 Eos % (Auto) 2.0 2.4 Baso % (Auto) 0.4 0.4 Lymph # (Auto) 0.94 1.09 [place] # (Auto) 0.4 0.3 Eos # (Auto) 0.1 0.1 Baso # (Auto) 0.0 0.0 Abs Immat Gran (auto) 0.03 0.03 Absolute Neuts (auto) 4.0 3.1 Absolute Nucleated RBC 0.000 0.000 Nucleated RBC % 0.0 0.0 % Immature Plt Fraction 4.5 5.0 Sodium 136 L 135 L Potassium 4.2 4.2 Chloride 113 H 114 H Carbon Dioxide 21 L 20 L Anion Gap 2 L 1 L BUN 10 D 7 Creatinine 1.40 H 1.30 H Estim Creat Clear Calc 27 29 Estimated GFR 37 L 40 L Glucose 97 92 Calcium 8.0 L 7.9 L Total Bilirubin 0.4 0.3 AST 24 24 ALT 11 10 Alkaline Phosphatase 47 49 Total Protein 6.0 L 6.0 L Albumin 3.0 L 2.7 L Quality VTE Prophylaxis VTE prophylaxis: mechanical ordered
[2024-02-01] MEDS: ROSUVASTATIN 20 MG TABLET PO (08:48)
[2024-02-01] MEDS: NICOTINE (*PBKC) 14 MG PATCH 1 PATCH TRANSDERM (08:49)
[2024-02-01] MEDS: METOPROLOL SUCCINATE EXT REL 50 MG TABCR PO (08:49)
[2024-02-01] MEDS: POTASSIUM CHLORIDE 20 MEQ ER TABLET PO ×2 (08:49→17:06)
[2024-02-01] MEDS: FIDAXOMICIN 200 MG TABLET PO ×2 (08:49→21:15)
[2024-02-01] MEDS: ENOXAPARIN 30 MG/0.3 ML SYRINGE SUB-Q (08:49)
--- NOTE | 2024-02-01 11:43 | P.PNGS_ITS ---
Progress Note: A&P Assessment and Plan (1) Abscess of sigmoid colon: Code(s): K63.0 - Abscess of intestine Status: Acute Assessment and Plan: exam benign, cont abx and low fiber diet, no acute surgical issues, will s/o, call c ?s, issues Subjective Subjective Date/Time Seen: 02/01/24 11:43 Interval history: feels better, some nausea, but no abd pain, aye low fiber diet Review of Systems Review of Systems: All systems reviewed & are unremarkable except as noted in HPI and below Exam Const: General: cooperative, comfortable and no acute distress Resp: Auscultation: diminished lung sounds Cardio: Rate: regular rate Rhythm: regular rhythm GI: Inspection: normal to inspection and non-distended GI Palp: No abdominal tenderness and Yes Soft to palpation Objective Data Vital Signs Vital Signs: Vital Signs - 24 hr 01/31/24 12:00 01/31/24 13:59 01/31/24 16:00 Temperature 36.4 C Pulse Rate 75 73 72 Respiratory Rate 17 Blood Pressure 140/62 Pulse Oximetry 97 Oxygen Delivery 01/31/24 20:00 01/31/24 20:00 01/31/24 20:38 Temperature 36.4 C Pulse Rate 72 73 79 Respiratory Rate 17 16 Blood Pressure 167/67 H Pulse Oximetry 97 97 Oxygen Delivery Room Air 02/01/24 00:00 02/01/24 04:00 02/01/24 06:43 Temperature 36.5 C Pulse Rate 73 74 76 Respiratory Rate 16 Blood Pressure 161/72 H Pulse Oximetry 100 Oxygen Delivery 02/01/24 08:00 02/01/24 08:00 02/01/24 08:49 Temperature Pulse Rate 78 76 Respiratory Rate Blood Pressure Pulse Oximetry Oxygen Delivery Room Air Intake/Output Intake/Output: Intake & Output 01/29/24 01/30/24 01/31/24 02/01/24 23:59 23:59 23:59 23:59 Intake Total 3040 2750 3252 756 Output Total 1200 Balance 1840 2750 3252 756 Meds/Results Medications: Active Medications Generic Name Dose Route Start Last Admin Trade Name Freq PRN Reason Stop Dose Admin Hydrocodone Bitart/Acetaminophen 1 tab 01/28/24 23:15 01/30/24 20:11 Hydrocodone/Acetaminophen (*Crx) 5-325 Mg Tablet PO 1 tab Q4H PRN Administration Moderate Pain (4-6) Hydrocodone Bitart/Acetaminophen 2 tab 01/29/24 16:55 01/31/24 22:38 Hydrocodone/Acetaminophen (*Crx) 5-325 Mg Tablet PO 2 tab Q6H PRN Administration Pain Rated 7-10 Diphenhydramine HCl 25 mg 01/29/24 15:23 01/29/24 16:03 Diphenhydramine Hcl Cap 25 Mg Capsule PO 25 mg Q6H PRN Administration Itching Enoxaparin Sodium 30 mg 01/30/24 09:00 02/01/24 08:49 Enoxaparin 30 Mg/0.3 Ml Syringe SUB-Q 30 mg DAILY TERI Administration Fidaxomicin 200 mg 01/29/24 21:00 02/01/24 08:49 Fidaxomicin 200 Mg Tablet PO 02/08/24 20:59 200 mg Q12HR TERI Administration Furosemide 20 mg 01/29/24 09:00 01/29/24 09:26 Furosemide 20 Mg Tablet PO 20 mg DAILY TERI Administration Sodium Chloride 1,000 mls @ 75 mls/hr 01/28/24 19:55 01/31/24 20:44 Normal Saline Iv IV CONT 75 mls/hr .[id number] TERI Administration Piperacillin/Tazobactam/Dextrose 3.375 gm in 50 mls @ 100 mls/hr 01/29/24 00:00 02/01/24 05:44 Zosyn 3.375 Gm/Ns 50 Ml IVPB 100 mls/hr Q6H TERI Administration Losartan Potassium 50 mg 01/29/24 09:00 01/29/24 09:26 Losartan Potassium 50 Mg Tablet PO 50 mg DAILY TERI Administration Metoprolol Succinate 50 mg 01/29/24 09:00 02/01/24 08:49 Metoprolol Succinate Ext Rel 50 Mg Tabcr PO 50 mg DAILY TERI Administration Nicotine 1 patch 01/29/24 09:00 02/01/24 08:49 Nicotine (*Pbkc) 14 Mg Patch TRANSDERM 1 patch DAILY TERI Administration Ondansetron HCl 4 mg 01/28/24 22:26 01/31/24 22:38 Ondansetron Inj 4 Mg/2 Ml Vial IV PUSH 4 mg Q6H PRN Administration Nausea And Vomiting Potassium Chloride 20 meq 01/29/24 09:00 02/01/24 08:49 Potassium Chloride 20 Meq Er Tablet PO 20 meq BID TERI Administration Rosuvastatin Calcium 20 mg 01/29/24 09:00 02/01/24 08:48 Rosuvastatin 20 Mg Tablet PO 20 mg DAILY TERI Administration Radiology Results: ITS Impressions Abdomen/Pelvis CT 01/28/24 13:31 IMPRESSION: 1. 2.8 x 2.3 x 3.2 cm perisigmoid abscess abutting the vagina. 2. Cirrhosis of the liver. 3. Splenic infarct, which may be subacute. 4. 12 mm cystic lesion of the pancreas. The differential diagnosis includes pseudocyst, intraductal papillary mucinous neoplasm (IPMN), mucinous cystic neoplasm (MCN), serous cystadenoma, and neuroendocrine tumor. Consider abdomen MRI without and with contrast in 2 years. 5. 2.3 cm right kidney mass, which may be a hemorrhagic cyst, but renal cell carcinoma cannot be excluded. Abdomen CT without and with contrast is recommended. Labs Labs: Laboratory Results - last 24 hr 01/31/24 02/01/24 11:44 05:25 WBC 5.5 4.6 RBC 3.20 L 3.22 L Hgb 9.8 L 9.7 L Hct 29.4 L 29.8 L MCV 91.9 92.5 MCH 30.6 30.1 MCHC 33.3 32.6 RDW 12.4 12.3 Plt Count 138 L 144 L MPV 10.7 H 10.7 H Immature Gran % (Auto) 0.5 0.6 H Neut % (Auto) 72.2 65.8 Lymph % (Auto) 17.2 L 23.5 [place] % (Auto) 7.7 7.3 Eos % (Auto) 2.0 2.4 Baso % (Auto) 0.4 0.4 Lymph # (Auto) 0.94 1.09 [place] # (Auto) 0.4 0.3 Eos # (Auto) 0.1 0.1 Baso # (Auto) 0.0 0.0 Abs Immat Gran (auto) 0.03 0.03 Absolute Neuts (auto) 4.0 3.1 Absolute Nucleated RBC 0.000 0.000 Nucleated RBC % 0.0 0.0 % Immature Plt Fraction 4.5 5.0 Sodium 136 L 135 L Potassium 4.2 4.2 Chloride 113 H 114 H Carbon Dioxide 21 L 20 L Anion Gap 2 L 1 L BUN 10 D 7 Creatinine 1.40 H 1.30 H Estim Creat Clear Calc 27 29 Estimated GFR 37 L 40 L Glucose 97 92 Calcium 8.0 L 7.9 L Total Bilirubin 0.4 0.3 AST 24 24 ALT 11 10 Alkaline Phosphatase 47 49 Total Protein 6.0 L 6.0 L Albumin 3.0 L 2.7 L
[2024-02-01] MEDS: ACETAMINOPHEN 325 MG TABLET 650 MG PO (12:01)
[2024-02-01] MEDS: SODIUM CHLORIDE 0.9% IV 1,000 ML 75 ML IV CONT (12:02)
[2024-02-01] MEDS: ONDANSETRON INJ 4 MG/2 ML VIAL IV PUSH ×2 (12:07→18:11)
--- NOTE | 2024-02-01 16:57 | WPDCN ---
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 Anxiety Congestive heart failure Hyperlipidemia Hypertension Surgical History Surgical History History of appendectomy H/O hernia repair H/O colonoscopy with polypectomy The patient stated that she had 16 polyps removed at 1 time H/O bladder repair surgery X3 History of colectomy History of hysterectomy History of cholecystectomy Family History Family History Father History of open heart surgery Sibling History of open heart surgery Sibling H/O heart artery stent Pancreatic cancer Mother Heart disease CHF (congestive heart failure) COPD (chronic obstructive pulmonary disease) Social History Social History Social History: The patient continues to smoke a half a pack a cigarettes a day for 54 years. She lives with her brother and [id number]. The patient has 2 children. The patient is . The patient was essentially a homemaker. The patient smokes marijuana 2 to 3 times a week. The patient denies any alcohol or illicit drugs. The patient desires to be a full code and chooses her brother to be the durable power defense attorney for healthcare. The patient does not want to live in a vegetative state and she states her brother is aware of this. Smoking packs per day: 0.5 Smoking cigarettes per day: 10.0 Years smoked: 50 Smoking pack-years: 25.00 Smoking status: Current every day smoker Tobacco type: cigarettes Alcohol intake: never Substance use type: marijuana Other substance usage details: 2-3 times a week Do You Feel Safe in your Home?: Yes Lack of Transportation: No Lack of Food: Never True Current Housing: I Have Housing Concerned About Future Housing: No Difficulty Paying Gas/Electric Bills: No Difficulty Paying for Meds: No Currently Unemployed: No Education: High School Diploma/GED Difficulty w/ Childcare or Family Care: No Spiritual care concerns: No Meds Home Medications and Allergies Home Medications ?Medication ?Instructions ?Recorded ?Confirmed ?Type losartan 50 mg tablet 50 mg PO DAILY 10/15/20 01/28/24 History metoprolol succinate 50 mg 50 mg PO DAILY 10/15/20 01/28/24 History tablet,extended release 24 hr furosemide 40 mg tablet 20 mg (1/2 x 40 mg) PO DAILY #30 10/17/20 01/28/24 Rx tabs potassium chloride 20 mEq 20 meq PO BID #60 tabs 10/17/20 01/28/24 Rx tablet,extended release (K-Tab) rosuvastatin 20 mg tablet 20 mg PO DAILY 01/28/24 01/28/24 History Allergies Allergy/AdvReac Type Severity Reaction Status Date / Time codeine Allergy Vomiting Verified 10/15/20 15:55 Sulfa (Sulfonamide Allergy Hives Verified 10/15/20 15:55 Antibiotics) Vital Signs Vital Signs - 24 hr 01/31/24 20:00 01/31/24 20:00 01/31/24 20:38 Temperature 36.4 C Pulse Rate 72 73 79 Respiratory Rate 17 16 Blood Pressure 167/67 H Pulse Oximetry 97 97 Oxygen Delivery Room Air 02/01/24 00:00 02/01/24 04:00 02/01/24 06:43 Temperature 36.5 C Pulse Rate 73 74 76 Respiratory Rate 16 Blood Pressure 161/72 H Pulse Oximetry 100 Oxygen Delivery 02/01/24 08:00 02/01/24 08:00 02/01/24 08:49 Temperature Pulse Rate 78 76 Respiratory Rate Blood Pressure Pulse Oximetry Oxygen Delivery Room Air 02/01/24 12:00 02/01/24 14:00 02/01/24 16:00 Temperature 35.9 C L Pulse Rate 84 82 73 Respiratory Rate 16 Blood Pressure 145/56 H Pulse Oximetry 98 Oxygen Delivery Results Labs 02/01/24 05:25 02/01/24 05:25 Labs: Short CBC 02/01/24 Range/Units 05:25 WBC 4.6 (4.5-10.0) K/mm3 Hgb 9.7 L (12.0-15.0) g/dL Hct 29.8 L (37.0-47.0) % Plt Count 144 L (150-375) k/mm3 BMP 02/01/24 05:25 Sodium 135 L Potassium 4.2 Chloride 114 H Carbon Dioxide 20 L BUN 7 Creatinine 1.30 H Glucose 92 Calcium 7.9 L Liver Function 02/01/24 Range/Units 05:25 Total Bilirubin 0.3 (0.2-1.3) mg/dL AST 24 (14-36) U/L ALT 10 (6-35) U/L Alkaline Phosphatase 49 (38-126) U/L Albumin 2.7 L (3.5-5.1) g/dL Attestation Student Attestation Patient has no new complaints. She has a good appetite. Her abdomen is soft with very mild tenderness. Plan: Continue to monitor CBC for abnormal lymphocytes.
[2024-02-01] MEDS: HYDROcodone/acetaminophen (*CRX) 5-325 MG TABLET 1 TAB PO (21:14)
[2024-02-02] VITALS (10 sets, daily range): BP systolic 133–153; BP diastolic 56–69; PULSE 70–88; RESP 16–18; TEMP 36.3–37.2; O2SAT 96–99
[2024-02-02] MEDS: HYDROcodone/acetaminophen (*CRX) 5-325 MG TABLET 2 TAB PO (02:28)
[2024-02-02] MEDS: ONDANSETRON INJ 4 MG/2 ML VIAL IV PUSH ×3 (02:29→16:53)
[2024-02-02] MEDS: SODIUM CHLORIDE 0.9% IV 1,000 ML 75 ML IV CONT (03:50)
[2024-02-02] MEDS: PIPERACILLN/TAZ 3.375GM/NS50ML 3.375 GM/50 ML BAG IVPB (05:01)
[2024-02-02 05:19] LABS: Basophils Percent Auto 0.5 % (0.2-1.2); Eosinophils Absolute Auto 0.1 K/mm3 (0-0.3); Eosinophils Percent Auto 2.5 % (0-4.4); Hematocrit 28.1 % (37.0-47.0); Hemoglobin 9.4 g/dL (12.0-15.0); Immature Granulocyte Absolute 0.04 K/mm3 (0.00-0.031); Immature Granulocyte Percent A 0.9 % (0-0.5); Immature Platelet Fraction Pct 3.9 % (0.9-11.2); Lymphocytes Absolute Auto 0.99 K/mm3 (0.9-3.2); Lymphocytes Percent Auto 22.4 % (18.3-44.2); Mean Corpuscular HGB Conc 33.5 g/dl (32-36); Mean Corpuscular Hemoglobin 30.7 pg (26-34); Mean Corpuscular Volume 91.8 fl (80-100); Mean Platelet Volume 10.6 fl (7.4-10.4); Monocytes Absolute Auto 0.3 K/mm3 (0.1-0.6); Monocytes Percent Auto 7.5 % (2.6-8.5); Neutrophils Absolute Auto 2.9 K/mm3 (1.3-6.7); Neutrophils Percent Auto 66.2 % (45.5-73.1); Platelet Count Result 137 k/mm3 (150-375); Red Blood Count 3.06 M/mm3 (4.2-5.4); Red Cell Distribution Width 12.4 % (11.5-14.5); White Blood Count 4.4 K/mm3 (4.5-10.0)
[2024-02-02 05:36] LABS: Alanine Aminotransferase 11 U/L (6-35); Albumin Level 2.8 g/dL (3.5-5.1); Alkaline Phosphatase 50 U/L (38-126); Anion Gap 1 mmol/L (4-12); Aspartate Amino Transferase 24 U/L (14-36); Bilirubin,Total 0.3 mg/dL (0.2-1.3); Blood Urea Nitrogen 5 mg/dL (7-17); Calcium 7.9 mg/dL (8.4-10.2); Carbon Dioxide 21 mmol/L (22-30); Chloride 112 mmol/L (98-107); Estimated CRCL calculation 34 ml/min; Estimated Glomerular Filt Rate 49; Glucose 99 mg/dL (65-110); Potassium 3.8 mmol/L (3.4-5.0); Sodium 134 mmol/L (137-145)
[2024-02-02] MEDS: HYDROcodone/acetaminophen (*CRX) 5-325 MG TABLET 1 TAB PO ×4 (07:04→21:44)
--- NOTE | 2024-02-02 07:55 | P.PNIM_ITS ---
Progress Note: A&P Assessment and Plan (1) Abscess of sigmoid colon: Code(s): K63.0 - Abscess of intestine Status: Acute Assessment and Plan: * CT of the abdomen and pelvis showed a 2.8 x 2.3 x 3.2 cm perisigmoid abscess abutting the vagina * general surgery following, treating conservatively * continue Zosyn * blood cultures showing no growth to date on preliminary read 01/30 * General surgery following * Increase to full liquid diet today * Blood cultures still showing no growth to date on preliminary read * Continue Zosyn 01/31 * Continue full liquid diet * Continue Zofran for nausea * Blood culture showing no growth to date on preliminary read * General surgery continues to follow * Continue Zosyn 02/01 * Switch to low-fiber diet * Blood culture still showing no growth to date on preliminary read * General surgery of signed off * Zosyn changed to Augmentin (2) C. difficile colitis: Code(s): A04.72 - Enterocolitis due to Clostridium difficile, not specified as recurrent Status: Acute Assessment and Plan: * Found to be C diff positive * Started on Dificid 01/30 * continue Dificid * Still having BM's however more loose than watery now 01/31 * Bowel movements have slowed down and have become more solid * Continue Dificid (3) UTI (urinary tract infection): Code(s): N39.0 - Urinary tract infection, site not specified Status: Acute Assessment and Plan: * UA showing cloudy urine appearance, urine specific gravity 1.040, 3+ urine protein, 3+ urine blood, positive nitrate, 1+ leukocyte, 3-5 urine RBC, 11-20 urine WBC, 4+ urine bacteria. * Urine culture showing E coli on final read Switched Zosyn to Augmentin today (4) RUSSELL (acute kidney injury): Code(s): N17.9 - Acute kidney failure, unspecified Status: Acute Assessment and Plan: * initial creatinine 1.50>1.60>1.70> 1.40>1.3>1.10--trending down today * baseline creatinine 0.90 * continue trend * patient received IV contrast with CT of the abdomen and pelvis * hold nephrotoxic medication including losartan and Lasix Will go ahead and discontinue IV fluids today (5) Hyponatremia: Code(s): E87.1 - Hypo-osmolality and hyponatremia Status: Acute Assessment and Plan: * sodium 133>134>136>136>135>134 * continue to trend * Stable, not symptomatic (6) Splenic infarct: Code(s): D73.5 - Infarction of spleen Status: Acute Assessment and Plan: * CT of the abdomen and pelvis showed splenic infarct which may be subacute * will need to be re-scanned once creatinine normalizes * Hematology following (7) Congestive heart failure: Code(s): I50.9 - Heart failure, unspecified Status: Chronic Assessment and Plan: * no echo to review * continue metoprolol * hold losartan and Lasix considering RUSSELL (8) Lesion of pancreas: Code(s): K86.9 - Disease of pancreas, unspecified Status: Acute Assessment and Plan: * CT of the abdomen and pelvis showed a 12 mm cystic lesion of the pancreas * will need MRI with and without contrast in 2 years to re-evaluate (9) Kidney mass: Code(s): N28.89 - Other specified disorders of kidney and ureter Status: Acute Assessment and Plan: * CT of the abdomen and pelvis shown a 2.3 cm right kidney mass, which may be a hemorrhagic cyst, but renal cell carcinoma cannot be excluded. * will need a repeat Abdomen CT without and with contrast however we will have to wait until her RUSSELL resolve (10) Cirrhosis: Code(s): K74.60 - Unspecified cirrhosis of liver Status: Acute Assessment and Plan: * CT of the abdomen pelvis showing cirrhosis of the liver * liver enzymes normal * Hepatitis panel negative (11) Hypertension: Code(s): I10 - Essential (primary) hypertension Status: Chronic Assessment and Plan: * blood pressure ranging 118/35-125/60 * losartan hold due to RUSSELL * continue metoprolol (12) Low back pain: Code(s): M54.50 - Low back pain, unspecified Status: Acute Assessment and Plan: * Continue Tylenol and [place] as needed for pain * Will add lidocaine patch * Will also add Flexeril 5 mg t.i.d. Time Spent With Patient Time with patient: 25 - 35 minutes Subjective Date/time seen: 02/02/24 07:55 Interval history: Interval history: This is a 73-year-old female who presented to the hospital on 01/28/2024 with complaints of lower abdominal pain. Workup in the hospital included an abdomen/pelvis CT which 2.8 x 2.3 x 3.2 cm [place] sigmoid abscess abutting the vagina, cirrhosis of the liver, splenic infarct which may be subacute, 12 mm cystic lesion of the pancreas, 2.3 cm right kidney mass which may be a cyst-- recommending further imaging. Initial labs showed a white blood cell count 11.3, hemoglobin 11.9, platelet count 123, sodium 133, creatinine 0.50, EGFR 34. UA was obtained which showed a cloudy urine appearance, urine specific gravity 1.040, 3+ urine protein, 3+ urine blood, positive nitrate, 1+ leukocytes, 3-5 urine RBC, 11-20 urine WBC, 4+ urine bacteria. Urine and blood cultures were obtained and are pending. EKG showed sinus rhythm with a rate of 65, QTC 433. She was given a dose of Zofran, morphine, 1 L of normal saline, and Zosyn while in the ED. General surgery was consulted. Subjective: Patient reporting headache again today. She states that last night whenever she was pulling herself over in the bed she started experiencing excruciating pain in her lower back. She has history of degenerative disc disease and osteoarthritis of the lower back. She states that her pain is stabbing in nature and constant. She is tearful this morning. Labs reviewed. Review of Systems Review of Systems: 12 systems were reviewed and are negativ e except for as per HPI. All systems reviewed & are unremarkable except as noted in HPI and below Constitutional: Constitutional: Reports as per HPI and Reports no additional constitutional complaints Eyes: Eyes: Reports as per HPI and Reports no additional eye complaints ENT: Reports system reviewed and no additional complaints, except as documented and Reports as per HPI Cardiovascular: Cardiovascular: Reports as per HPI and Reports no additional cardiovascular complaints Respiratory: Respiratory: Reports as per HPI and Reports no additional respiratory complaints Gastrointestinal: Gastrointestinal: Reports as per HPI and Reports no additional gastrointestinal complaints Genitourinary: Genitourinary: Reports no additional female genitourinary complaints and Reports as per HPI Musculoskeletal: Musculoskeletal: Reports no additional musculoskeletal complaints and Reports as per HPI Integumentary/Breasts: Skin/Breast: Reports system reviewed and no additional complaints, except as docu and Reports as per HPI Neurologic: Reports system reviewed and no additional complaints, except as documented and Reports as per HPI Psychiatric: Psychiatric: Reports no additional psychiatric complaints and Reports as per HPI Exam Narrative: General: In no acute distress, well nourished Cardiac: Normal S1 and S2. No murmur, gallops or friction rubs, peripheral pulses intact. Respiratory: Lungs clear to auscultation, no adventitious lung sounds, currently on room air Gastrointestinal: soft, non-distended, non-tender, normoactive bowel sounds. : voiding without difficulty. Spine: Lower lumbar pain today, reports muscle spasms Extremities: moves all extremities well, no edema Neuro: Alert and oriented x4 Objective Data Vital Signs Vital Signs: Vital Signs - 24 hr 02/01/24 08:00 02/01/24 08:00 02/01/24 08:49 Temperature Pulse Rate 78 76 Respiratory Rate Blood Pressure Pulse Oximetry Oxygen Delivery Room Air 02/01/24 12:00 02/01/24 14:00 02/01/24 16:00 Temperature 96.6 F L Pulse Rate 84 82 73 Respiratory Rate 16 Blood Pressure 145/56 H Pulse Oximetry 98 Oxygen Delivery 02/01/24 20:00 02/01/24 21:00 02/01/24 21:12 Temperature 97.8 F Pulse Rate 78 90 Respiratory Rate 22 H Blood Pressure 186/64 H Pulse Oximetry 100 Oxygen Delivery Room Air 02/01/24 22:00 02/02/24 00:00 02/02/24 04:00 Temperature Pulse Rate 76 70 Respiratory Rate Blood Pressure 152/53 H Pulse Oximetry Oxygen Delivery 02/02/24 06:18 Temperature 98.9 F Pulse Rate 81 Respiratory Rate 18 Blood Pressure 153/69 H Pulse Oximetry 99 Oxygen Delivery Intake/Output Intake/Output: Intake & Output 01/30/24 01/31/24 02/01/24 02/02/24 23:59 23:59 23:59 23:59 Intake Total 2750 3252 2986 1600 Balance 2750 3252 2986 1600 Meds/Results Medications: Active Medications Generic Name Dose Route Start Last Admin Trade Name Freq PRN Reason Stop Dose Admin Acetaminophen 650 mg 02/01/24 11:50 02/01/24 12:01 Acetaminophen 325 Mg Tablet PO 650 mg Q6H PRN Administration Mild Pain (1-3) or Fever Hydrocodone Bitart/Acetaminophen 1 tab 01/28/24 23:15 02/02/24 07:04 Hydrocodone/Acetaminophen (*Crx) 5-325 Mg Tablet PO 1 tab Q4H PRN Administration Moderate Pain (4-6) Hydrocodone Bitart/Acetaminophen 2 tab 01/29/24 16:55 02/02/24 02:28 Hydrocodone/Acetaminophen (*Crx) 5-325 Mg Tablet PO 2 tab Q6H PRN Administration Pain Rated 7-10 Diphenhydramine HCl 25 mg 01/29/24 15:23 01/29/24 16:03 Diphenhydramine Hcl Cap 25 Mg Capsule PO 25 mg Q6H PRN Administration Itching Enoxaparin Sodium 30 mg 01/30/24 09:00 02/01/24 08:49 Enoxaparin 30 Mg/0.3 Ml Syringe SUB-Q 30 mg DAILY TERI Administration Fidaxomicin 200 mg 01/29/24 21:00 02/01/24 21:15 Fidaxomicin 200 Mg Tablet PO 02/08/24 20:59 200 mg Q12HR TERI Administration Furosemide 20 mg 01/29/24 09:00 01/29/24 09:26 Furosemide 20 Mg Tablet PO 20 mg DAILY TERI Administration Sodium Chloride 1,000 mls @ 75 mls/hr 01/28/24 19:55 02/02/24 03:50 Normal Saline Iv IV CONT 75 mls/hr .[id number] TERI Administration Piperacillin/Tazobactam/Dextrose 3.375 gm in 50 mls @ 100 mls/hr 01/29/24 00:00 02/02/24 05:31 Zosyn 3.375 Gm/Ns 50 Ml IVPB Infused Q6H TERI Infusion Losartan Potassium 50 mg 01/29/24 09:00 01/29/24 09:26 Losartan Potassium 50 Mg Tablet PO 50 mg DAILY TERI Administration Metoprolol Succinate 50 mg 01/29/24 09:00 02/01/24 08:49 Metoprolol Succinate Ext Rel 50 Mg Tabcr PO 50 mg DAILY TERI Administration Nicotine 1 patch 01/29/24 09:00 02/01/24 08:49 Nicotine (*Pbkc) 14 Mg Patch TRANSDERM 1 patch DAILY TERI Administration Ondansetron HCl 4 mg 01/28/24 22:26 02/02/24 02:29 Ondansetron Inj 4 Mg/2 Ml Vial IV PUSH 4 mg Q6H PRN Administration Nausea And Vomiting Potassium Chloride 20 meq 01/29/24 09:00 02/01/24 17:06 Potassium Chloride 20 Meq Er Tablet PO 20 meq BID TERI Administration Rosuvastatin Calcium 20 mg 01/29/24 09:00 02/01/24 08:48 Rosuvastatin 20 Mg Tablet PO 20 mg DAILY TERI Administration Radiology Results: ITS Impressions Abdomen/Pelvis CT 01/28/24 13:31 IMPRESSION: 1. 2.8 x 2.3 x 3.2 cm perisigmoid abscess abutting the vagina. 2. Cirrhosis of the liver. 3. Splenic infarct, which may be subacute. 4. 12 mm cystic lesion of the pancreas. The differential diagnosis includes pseudocyst, intraductal papillary mucinous neoplasm (IPMN), mucinous cystic neoplasm (MCN), serous cystadenoma, and neuroendocrine tumor. Consider abdomen MRI without and with contrast in 2 years. 5. 2.3 cm right kidney mass, which may be a hemorrhagic cyst, but renal cell carcinoma cannot be excluded. Abdomen CT without and with contrast is recommended. Labs Labs: Laboratory Results - last 24 hr 02/02/24 04:48 WBC 4.4 L RBC 3.06 L Hgb 9.4 L Hct 28.1 L MCV 91.8 MCH 30.7 MCHC 33.5 RDW 12.4 Plt Count 137 L MPV 10.6 H Immature Gran % (Auto) 0.9 H Neut % (Auto) 66.2 Lymph % (Auto) 22.4 [place] % (Auto) 7.5 Eos % (Auto) 2.5 Baso % (Auto) 0.5 Lymph # (Auto) 0.99 [place] # (Auto) 0.3 Eos # (Auto) 0.1 Baso # (Auto) 0.0 Abs Immat Gran (auto) 0.04 H Absolute Neuts (auto) 2.9 Absolute Nucleated RBC 0.000 Nucleated RBC % 0.0 % Immature Plt Fraction 3.9 Sodium 134 L Potassium 3.8 Chloride 112 H Carbon Dioxide 21 L Anion Gap 1 L BUN 5 L Creatinine 1.10 H Estim Creat Clear Calc 34 Estimated GFR 49 L Glucose 99 Calcium 7.9 L Total Bilirubin 0.3 AST 24 ALT 11 Alkaline Phosphatase 50 Total Protein 6.0 L Albumin 2.8 L Quality VTE Prophylaxis VTE prophylaxis: mechanical ordered
[2024-02-02] MEDS: ROSUVASTATIN 20 MG TABLET PO (08:11)
[2024-02-02] MEDS: POTASSIUM CHLORIDE 20 MEQ ER TABLET PO ×2 (08:11→16:51)
[2024-02-02] MEDS: METOPROLOL SUCCINATE EXT REL 50 MG TABCR PO (08:11)
[2024-02-02] MEDS: NICOTINE (*PBKC) 14 MG PATCH 1 PATCH TRANSDERM (08:11)
[2024-02-02] MEDS: FIDAXOMICIN 200 MG TABLET PO ×2 (08:11→20:10)
[2024-02-02] MEDS: ENOXAPARIN 40 MG/0.4 ML SYRINGE SUB-Q (08:12)
[2024-02-02] MEDS: AMOXICILLIN/CLAVULANATE K 875-125 MG TAB 1 TABLET PO ×2 (11:17→20:10)
[2024-02-02] MEDS: CYCLOBENZAPRINE HCL 5 MG TABLET PO ×2 (12:35→21:46)
[2024-02-02] MEDS: LIDOCAINE 5% PATCH 1 PATCH TRANSDERM (12:36)
[2024-02-02] MEDS: ACETAMINOPHEN 325 MG TABLET 650 MG PO (20:10)
[2024-02-03] VITALS (9 sets, daily range): BP systolic 121–144; BP diastolic 46–63; PULSE 75–91; RESP 16–18; TEMP 36.6–36.9; O2SAT 98–99
[2024-02-03] MEDS: HYDROcodone/acetaminophen (*CRX) 5-325 MG TABLET 1 TAB PO ×5 (03:54→22:06)
[2024-02-03] MEDS: CYCLOBENZAPRINE HCL 5 MG TABLET PO ×3 (05:12→22:07)
[2024-02-03 05:25] LABS: Basophils Percent Auto 0.4 % (0.2-1.2); Eosinophils Absolute Auto 0.1 K/mm3 (0-0.3); Hematocrit 28.5 % (37.0-47.0); Hemoglobin 9.5 g/dL (12.0-15.0); Immature Granulocyte Absolute 0.05 K/mm3 (0.00-0.031); Immature Granulocyte Percent A 1.1 % (0-0.5); Immature Platelet Fraction Pct 3.6 % (0.9-11.2); Lymphocytes Absolute Auto 0.86 K/mm3 (0.9-3.2); Mean Corpuscular HGB Conc 33.3 g/dl (32-36); Mean Corpuscular Hemoglobin 30.5 pg (26-34); Mean Corpuscular Volume 91.6 fl (80-100); Mean Platelet Volume 10.4 fl (7.4-10.4); Monocytes Absolute Auto 0.4 K/mm3 (0.1-0.6); Monocytes Percent Auto 8.2 % (2.6-8.5); Neutrophils Absolute Auto 3.1 K/mm3 (1.3-6.7); Neutrophils Percent Auto 69.3 % (45.5-73.1); Platelet Count Result 137 k/mm3 (150-375); Red Blood Count 3.11 M/mm3 (4.2-5.4); Red Cell Distribution Width 12.4 % (11.5-14.5); White Blood Count 4.5 K/mm3 (4.5-10.0)
[2024-02-03 05:32] LABS: Alanine Aminotransferase 12 U/L (6-35); Albumin Level 2.9 g/dL (3.5-5.1); Alkaline Phosphatase 48 U/L (38-126); Anion Gap 2 mmol/L (4-12); Aspartate Amino Transferase 23 U/L (14-36); Bilirubin,Total 0.4 mg/dL (0.2-1.3); Blood Urea Nitrogen 4 mg/dL (7-17); Calcium 8.1 mg/dL (8.4-10.2); Carbon Dioxide 22 mmol/L (22-30); Chloride 110 mmol/L (98-107); Estimated CRCL calculation 37 ml/min; Estimated Glomerular Filt Rate 55; Glucose 97 mg/dL (65-110); Potassium 3.4 mmol/L (3.4-5.0); Sodium 134 mmol/L (137-145)
--- NOTE | 2024-02-03 07:27 | P.PNIM_ITS ---
Progress Note: A&P Assessment and Plan (1) Abscess of sigmoid colon: Code(s): K63.0 - Abscess of intestine Status: Acute Assessment and Plan: * CT of the abdomen and pelvis showed a 2.8 x 2.3 x 3.2 cm perisigmoid abscess abutting the vagina * general surgery following, treating conservatively * continue Zosyn * blood cultures showing no growth to date on preliminary read 01/30 * General surgery following * Increase to full liquid diet today * Blood cultures still showing no growth to date on preliminary read * Continue Zosyn 01/31 * Continue full liquid diet * Continue Zofran for nausea * Blood culture showing no growth to date on preliminary read * General surgery continues to follow * Continue Zosyn 02/01 * Continue low-fiber diet * Blood culture still showing no growth to date on preliminary read * General surgery of signed off * Zosyn changed to Augmentin 02/02 * Will get CT of the abdomen and pelvis today with contrast now that her creatinine is back to baseline * Continue Augmentin * Blood culture still showing no growth to date (2) C. difficile colitis: Code(s): A04.72 - Enterocolitis due to Clostridium difficile, not specified as recurrent Status: Acute Assessment and Plan: * Found to be C diff positive * Started on Dificid 01/30 * continue Dificid * Still having BM's however more loose than watery now 01/31 * Bowel movements have slowed down and have become more solid * Continue Dificid 02/02 * Last bowel movement was around 4:00 p.m. yesterday, diarrhea has slowed * Continue Dificid (3) UTI (urinary tract infection): Code(s): N39.0 - Urinary tract infection, site not specified Status: Acute Assessment and Plan: * UA showing cloudy urine appearance, urine specific gravity 1.040, 3+ urine protein, 3+ urine blood, positive nitrate, 1+ leukocyte, 3-5 urine RBC, 11-20 urine WBC, 4+ urine bacteria. * Urine culture showing E coli on final read Switched Zosyn to Augmentin today 02/02 * Continue Augmentin (4) RUSSELL (acute kidney injury): Code(s): N17.9 - Acute kidney failure, unspecified Status: Acute Assessment and Plan: * initial creatinine 1.50>1.60>1.70> 1.40>1.3>1.10->1.0-trending down today * baseline creatinine 0.90 * continue trend * patient received IV contrast with CT of the abdomen and pelvis initially * hold nephrotoxic medication including losartan and Lasix * Will be getting another CT of the abdomen and pelvis with contrast today now that she is back to baseline to recheck splenic infarct and abscess (5) Hyponatremia: Code(s): E87.1 - Hypo-osmolality and hyponatremia Status: Acute Assessment and Plan: * sodium 133>134>136>136>135>134>134 * continue to trend * Stable, not symptomatic (6) Splenic infarct: Code(s): D73.5 - Infarction of spleen Status: Acute Assessment and Plan: * CT of the abdomen and pelvis showed splenic infarct which may be subacute * will need to be re-scanned once creatinine normalizes * Hematology following 02/02 * Creatinine down to 1.0 which is her baseline, we will go ahead and repeat CT of the abdomen and pelvis to assess splenic infarct * Hematology following (7) Congestive heart failure: Code(s): I50.9 - Heart failure, unspecified Status: Chronic Assessment and Plan: * no echo to review * continue metoprolol * Will continue to hold losartan and Lasix for now considering she will be going for another CT with contrast (8) Lesion of pancreas: Code(s): K86.9 - Disease of pancreas, unspecified Status: Acute Assessment and Plan: * CT of the abdomen and pelvis showed a 12 mm cystic lesion of the pancreas * will need MRI with and without contrast in 2 years to re-evaluate * Will get MRI of the pancreas today (9) Kidney mass: Code(s): N28.89 - Other specified disorders of kidney and ureter Status: Acute Assessment and Plan: * CT of the abdomen and pelvis shown a 2.3 cm right kidney mass, which may be a hemorrhagic cyst, but renal cell carcinoma cannot be excluded. * will need a repeat Abdomen CT without and with contrast however we will have to wait until her RUSSELL resolve 02/02 * Will get CT of the abdomen and pelvis with and without contrast today to reassess (10) Cirrhosis: Code(s): K74.60 - Unspecified cirrhosis of liver Status: Acute Assessment and Plan: * CT of the abdomen pelvis showing cirrhosis of the liver * liver enzymes normal * Hepatitis panel negative (11) Hypertension: Code(s): I10 - Essential (primary) hypertension Status: Chronic Assessment and Plan: * blood pressure ranging 118/35-125/60 * Continue to hold losartan even though creatinine is back to baseline. She will be having another CT of the abdomen and pelvis today. * continue metoprolol (12) Low back pain: Code(s): M54.50 - Low back pain, unspecified Status: Acute Assessment and Plan: * Continue Tylenol and Rampart as needed for pain * Will add lidocaine patch * Will also add Flexeril 5 mg t.i.d. Time Spent With Patient Time with patient: Greater than 35 minutes Subjective Date/time seen: 02/03/24 07:27 Interval history: Interval history: This is a 73-year-old female who presented to the hospital on 01/28/2024 with complaints of lower abdominal pain. Workup in the hospital included an abdomen/pelvis CT which 2.8 x 2.3 x 3.2 cm vernon sigmoid abscess abutting the vagina, cirrhosis of the liver, splenic infarct which may be subacute, 12 mm cystic lesion of the pancreas, 2.3 cm right kidney mass which may be a cyst-- recommending further imaging. Initial labs showed a white blood cell count 11.3, hemoglobin 11.9, platelet count 123, sodium 133, creatinine 0.50, EGFR 34. UA was obtained which showed a cloudy urine appearance, urine specific gravity 1.040, 3+ urine protein, 3+ urine blood, positive nitrate, 1+ leukocytes, 3-5 urine RBC, 11-20 urine WBC, 4+ urine bacteria. Urine and blood cultures were obtained and are pending. EKG showed sinus rhythm with a rate of 65, QTC 433. She was given a dose of Zofran, morphine, 1 L of normal saline, and Zosyn while in the ED. General surgery was consulted. Subjective: Patient states that her headache is now gone. She still is stating she has some back pain however it is better since we have been keeping her pain medication and Flexeril. Her last bowel movement was yesterday around 4:00 p.m.. Her creatinine is now back down to baseline and we will go ahead and send her for repeat CT of the abdomen and pelvis with contrast. She denies any other complaints today. Labs reviewed. Review of Systems Review of Systems: 12 systems were reviewed and are negativ e except for as per HPI. All systems reviewed & are unremarkable except as noted in HPI and below Constitutional: Constitutional: Reports as per HPI and Reports no additional constitutional complaints Eyes: Eyes: Reports as per HPI and Reports no additional eye complaints ENT: Reports system reviewed and no additional complaints, except as documented and Reports as per HPI Cardiovascular: Cardiovascular: Reports as per HPI and Reports no additional cardiovascular complaints Respiratory: Respiratory: Reports as per HPI and Reports no additional respiratory complaints Gastrointestinal: Gastrointestinal: Reports as per HPI and Reports no additional gastrointestinal complaints Genitourinary: Genitourinary: Reports no additional female genitourinary complaints and Reports as per HPI Musculoskeletal: Musculoskeletal: Reports no additional musculoskeletal complaints and Reports as per HPI Integumentary/Breasts: Skin/Breast: Reports system reviewed and no additional complaints, except as docu and Reports as per HPI Neurologic: Reports system reviewed and no additional complaints, except as documented and Reports as per HPI Psychiatric: Psychiatric: Reports no additional psychiatric complaints and Reports as per HPI Exam Narrative: General: In no acute distress, well nourished Cardiac: Normal S1 and S2. No murmur, gallops or friction rubs, peripheral pulses intact. Respiratory: Lungs clear to auscultation, no adventitious lung sounds, currently on room air Gastrointestinal: soft, mildly distended, non-tender, normoactive bowel sounds. : voiding without difficulty. Spine: Lower lumbar pain Extremities: moves all extremities well, no edema Neuro: Alert and oriented x4 Objective Data Vital Signs Vital Signs: Vital Signs - 24 hr 02/02/24 07:28 02/02/24 08:10 02/02/24 08:11 Temperature Pulse Rate 88 Respiratory Rate Blood Pressure Pulse Oximetry 98 Oxygen Delivery Room Air Room Air 02/02/24 12:00 02/02/24 15:45 02/02/24 16:00 Temperature 97.3 F L Pulse Rate 82 87 86 Respiratory Rate 16 Blood Pressure 143/56 H Pulse Oximetry 98 Oxygen Delivery 02/02/24 20:00 02/02/24 20:08 02/02/24 22:00 Temperature 98.5 F Pulse Rate 82 82 Respiratory Rate 18 Blood Pressure 133/62 Pulse Oximetry 96 Oxygen Delivery Room Air 02/03/24 00:00 02/03/24 04:00 02/03/24 06:00 Temperature 98.2 F Pulse Rate 75 80 75 Respiratory Rate 18 Blood Pressure 144/63 H Pulse Oximetry 99 Oxygen Delivery Intake/Output Intake/Output: Intake & Output 01/31/24 02/01/24 02/02/24 02/03/24 23:59 23:59 23:59 23:59 Intake Total 3252 2986 1960 Output Total 2 Balance 3252 2986 1960 -2 Meds/Results Medications: Active Medications Generic Name Dose Route Start Last Admin Trade Name Freq PRN Reason Stop Dose Admin Acetaminophen 650 mg 02/01/24 11:50 02/02/24 20:10 Acetaminophen 325 Mg Tablet PO 650 mg Q6H PRN Administration Mild Pain (1-3) or Fever Hydrocodone Bitart/Acetaminophen 1 tab 01/28/24 23:15 02/03/24 03:54 Hydrocodone/Acetaminophen (*Crx) 5-325 Mg Tablet PO 1 tab Q4H PRN Administration Moderate Pain (4-6) Hydrocodone Bitart/Acetaminophen 2 tab 01/29/24 16:55 02/02/24 02:28 Hydrocodone/Acetaminophen (*Crx) 5-325 Mg Tablet PO 2 tab Q6H PRN Administration Pain Rated 7-10 Amoxicillin/Clavulanate Potassium 1 tablet 02/02/24 11:00 02/02/24 20:10 Amoxicillin/Clavulanate K 875-125 Mg Tab PO 1 tablet Q12HR TERI Administration Cyclobenzaprine HCl 5 mg 02/02/24 14:00 02/03/24 05:12 Cyclobenzaprine Hcl 5 Mg Tablet PO 5 mg Q8HR TERI Administration Diphenhydramine HCl 25 mg 01/29/24 15:23 01/29/24 16:03 Diphenhydramine Hcl Cap 25 Mg Capsule PO 25 mg Q6H PRN Administration Itching Enoxaparin Sodium 40 mg 02/02/24 09:00 02/02/24 08:12 Enoxaparin 40 Mg/0.4 Ml Syringe SUB-Q 40 mg DAILY TERI Administration Fidaxomicin 200 mg 01/29/24 21:00 02/02/24 20:10 Fidaxomicin 200 Mg Tablet PO 02/08/24 20:59 200 mg Q12HR TERI Administration Furosemide 20 mg 01/29/24 09:00 01/29/24 09:26 Furosemide 20 Mg Tablet PO 20 mg DAILY TERI Administration Lidocaine 1 patch 02/02/24 11:25 02/02/24 12:36 Lidocaine 5% Patch TRANSDERM 1 patch DAILY TERI Administration Losartan Potassium 50 mg 01/29/24 09:00 01/29/24 09:26 Losartan Potassium 50 Mg Tablet PO 50 mg DAILY TERI Administration Metoprolol Succinate 50 mg 01/29/24 09:00 02/02/24 08:11 Metoprolol Succinate Ext Rel 50 Mg Tabcr PO 50 mg DAILY TERI Administration Nicotine 1 patch 01/29/24 09:00 02/02/24 08:11 Nicotine (*Pbkc) 14 Mg Patch TRANSDERM 1 patch DAILY TERI Administration Ondansetron HCl 4 mg 01/28/24 22:26 02/02/24 16:53 Ondansetron Inj 4 Mg/2 Ml Vial IV PUSH 4 mg Q6H PRN Administration Nausea And Vomiting Potassium Chloride 20 meq 01/29/24 09:00 02/02/24 16:51 Potassium Chloride 20 Meq Er Tablet PO 20 meq BID TERI Administration Rosuvastatin Calcium 20 mg 01/29/24 09:00 02/02/24 08:11 Rosuvastatin 20 Mg Tablet PO 20 mg DAILY TERI Administration Radiology Results: ITS Impressions Abdomen/Pelvis CT 01/28/24 13:31 IMPRESSION: 1. 2.8 x 2.3 x 3.2 cm perisigmoid abscess abutting the vagina. 2. Cirrhosis of the liver. 3. Splenic infarct, which may be subacute. 4. 12 mm cystic lesion of the pancreas. The differential diagnosis includes pseudocyst, intraductal papillary mucinous neoplasm (IPMN), mucinous cystic neoplasm (MCN), serous cystadenoma, and neuroendocrine tumor. Consider abdomen MRI without and with contrast in 2 years. 5. 2.3 cm right kidney mass, which may be a hemorrhagic cyst, but renal cell carcinoma cannot be excluded. Abdomen CT without and with contrast is recommended. Labs Labs: Laboratory Results - last 24 hr 02/03/24 05:01 WBC 4.5 RBC 3.11 L Hgb 9.5 L Hct 28.5 L MCV 91.6 MCH 30.5 MCHC 33.3 RDW 12.4 Plt Count 137 L MPV 10.4 Immature Gran % (Auto) 1.1 H Neut % (Auto) 69.3 Lymph % (Auto) 19.0 [place] % (Auto) 8.2 Eos % (Auto) 2.0 Baso % (Auto) 0.4 Lymph # (Auto) 0.86 L [place] # (Auto) 0.4 Eos # (Auto) 0.1 Baso # (Auto) 0.0 Abs Immat Gran (auto) 0.05 H Absolute Neuts (auto) 3.1 Absolute Nucleated RBC 0.000 Nucleated RBC % 0.0 % Immature Plt Fraction 3.6 Sodium 134 L Potassium 3.4 Chloride 110 H Carbon Dioxide 22 Anion Gap 2 L BUN 4 L Creatinine 1.00 Estim Creat Clear Calc 37 Estimated GFR 55 L Glucose 97 Calcium 8.1 L Total Bilirubin 0.4 AST 23 ALT 12 Alkaline Phosphatase 48 Total Protein 6.0 L Albumin 2.9 L Quality VTE Prophylaxis VTE prophylaxis: mechanical ordered
[2024-02-03] MEDS: AMOXICILLIN/CLAVULANATE K 875-125 MG TAB 1 TABLET PO ×2 (09:11→22:07)
[2024-02-03] MEDS: METOPROLOL SUCCINATE EXT REL 50 MG TABCR PO (09:11)
[2024-02-03] MEDS: ROSUVASTATIN 20 MG TABLET PO (09:11)
[2024-02-03] MEDS: ONDANSETRON INJ 4 MG/2 ML VIAL IV PUSH ×2 (09:11→22:07)
[2024-02-03] MEDS: POTASSIUM CHLORIDE 20 MEQ ER TABLET PO ×2 (09:11→17:50)
[2024-02-03] MEDS: FIDAXOMICIN 200 MG TABLET PO ×2 (09:11→22:07)
[2024-02-03] MEDS: NICOTINE (*PBKC) 14 MG PATCH 1 PATCH TRANSDERM (12:31)
[2024-02-03] MEDS: ENOXAPARIN 40 MG/0.4 ML SYRINGE SUB-Q (12:31)
[2024-02-03] MEDS: LIDOCAINE 5% PATCH 1 PATCH TRANSDERM (12:31)
[2024-02-04] VITALS (10 sets, daily range): BP systolic 116–153; BP diastolic 44–66; PULSE 78–95; RESP 16–18; TEMP 36.6–37; O2SAT 96–98
[2024-02-04] MEDS: HYDROcodone/acetaminophen (*CRX) 5-325 MG TABLET 1 TAB PO ×5 (02:52→21:00)
[2024-02-04] MEDS: CYCLOBENZAPRINE HCL 5 MG TABLET PO ×3 (05:23→21:00)
[2024-02-04 05:44] LABS: Basophils Percent Auto 0.4 % (0.2-1.2); Eosinophils Absolute Auto 0.1 K/mm3 (0-0.3); Eosinophils Percent Auto 1.7 % (0-4.4); Hematocrit 29.3 % (37.0-47.0); Hemoglobin 9.8 g/dL (12.0-15.0); Immature Granulocyte Absolute 0.07 K/mm3 (0.00-0.031); Immature Granulocyte Percent A 1.3 % (0-0.5); Immature Platelet Fraction Pct 3.8 % (0.9-11.2); Lymphocytes Absolute Auto 1.03 K/mm3 (0.9-3.2); Lymphocytes Percent Auto 19.3 % (18.3-44.2); Mean Corpuscular HGB Conc 33.4 g/dl (32-36); Mean Corpuscular Hemoglobin 30.5 pg (26-34); Mean Corpuscular Volume 91.3 fl (80-100); Mean Platelet Volume 9.8 fl (7.4-10.4); Monocytes Absolute Auto 0.5 K/mm3 (0.1-0.6); Monocytes Percent Auto 8.8 % (2.6-8.5); Neutrophils Absolute Auto 3.7 K/mm3 (1.3-6.7); Neutrophils Percent Auto 68.5 % (45.5-73.1); Platelet Count Result 137 k/mm3 (150-375); Red Blood Count 3.21 M/mm3 (4.2-5.4); Red Cell Distribution Width 12.5 % (11.5-14.5); White Blood Count 5.3 K/mm3 (4.5-10.0)
[2024-02-04 05:56] LABS: Alanine Aminotransferase 13 U/L (6-35); Alkaline Phosphatase 52 U/L (38-126); Anion Gap 1 mmol/L (4-12); Aspartate Amino Transferase 21 U/L (14-36); Bilirubin,Total 0.4 mg/dL (0.2-1.3); Blood Urea Nitrogen 6 mg/dL (7-17); Calcium 8.4 mg/dL (8.4-10.2); Carbon Dioxide 25 mmol/L (22-30); Chloride 108 mmol/L (98-107); Estimated CRCL calculation 37 ml/min; Estimated Glomerular Filt Rate 55; Glucose 106 mg/dL (65-110); Potassium 3.9 mmol/L (3.4-5.0); Sodium 134 mmol/L (137-145)
[2024-02-04] MEDS: FIDAXOMICIN 200 MG TABLET PO ×2 (08:58→21:00)
[2024-02-04] MEDS: AMOXICILLIN/CLAVULANATE K 875-125 MG TAB 1 TABLET PO ×2 (08:58→21:00)
[2024-02-04] MEDS: METOPROLOL SUCCINATE EXT REL 50 MG TABCR PO (08:58)
[2024-02-04] MEDS: ONDANSETRON INJ 4 MG/2 ML VIAL IV PUSH ×2 (08:59→21:03)
[2024-02-04] MEDS: LIDOCAINE 5% PATCH 1 PATCH TRANSDERM (08:59)
[2024-02-04] MEDS: POTASSIUM CHLORIDE 20 MEQ ER TABLET PO ×2 (08:59→17:34)
[2024-02-04] MEDS: ROSUVASTATIN 20 MG TABLET PO (08:59)
[2024-02-04] MEDS: ENOXAPARIN 40 MG/0.4 ML SYRINGE SUB-Q (09:00)
[2024-02-04] MEDS: NICOTINE (*PBKC) 14 MG PATCH 1 PATCH TRANSDERM (09:00)
--- NOTE | 2024-02-04 13:01 | P.PNGS_ITS ---
Progress Note: A&P Assessment and Plan (1) Abscess of sigmoid colon: Code(s): K63.0 - Abscess of intestine Status: Acute Assessment and Plan: CT reviewed, exam benign, possible colovaginal fistula but abscess now resolved, cont low fiber diet and abx for now, no acute surgical issues Subjective Subjective Date/Time Seen: 02/04/24 13:01 Interval history: no abd pain, occasional cramping, aye low fiber diet Review of Systems Review of Systems: All systems reviewed & are unremarkable except as noted in HPI and below Exam Const: General: cooperative, comfortable and no acute distress Resp: Auscultation: clear to auscultation bilaterally Cardio: Rate: regular rate Rhythm: regular rhythm GI: Inspection: normal to inspection and distended GI Palp: No abdominal tenderness and Yes Soft to palpation Objective Data Vital Signs Vital Signs: Vital Signs - 24 hr 02/03/24 14:00 02/03/24 16:00 02/03/24 20:00 Temperature 36.6 C Pulse Rate 86 78 79 Respiratory Rate 16 Blood Pressure 121/54 L Pulse Oximetry 99 Oxygen Delivery 02/03/24 22:00 02/03/24 22:00 02/04/24 00:00 Temperature 36.9 C Pulse Rate 81 80 Respiratory Rate 18 Blood Pressure 139/46 L Pulse Oximetry 98 Oxygen Delivery Room Air 02/04/24 04:00 02/04/24 06:00 02/04/24 08:58 Temperature 36.7 C Pulse Rate 81 82 95 Respiratory Rate 18 Blood Pressure 116/44 L Pulse Oximetry 97 Oxygen Delivery Intake/Output Intake/Output: Intake & Output 02/01/24 02/02/24 02/03/24 02/04/24 23:59 23:59 23:59 23:59 Intake Total 2986 1960 560 480 Output Total 2 Balance 2986 1960 558 480 Meds/Results Medications: Active Medications Generic Name Dose Route Start Last Admin Trade Name Freq PRN Reason Stop Dose Admin Acetaminophen 650 mg 02/01/24 11:50 02/02/24 20:10 Acetaminophen 325 Mg Tablet PO 650 mg Q6H PRN Administration Mild Pain (1-3) or Fever Hydrocodone Bitart/Acetaminophen 1 tab 01/28/24 23:15 02/04/24 08:59 Hydrocodone/Acetaminophen (*Crx) 5-325 Mg Tablet PO 1 tab Q4H PRN Administration Moderate Pain (4-6) Hydrocodone Bitart/Acetaminophen 2 tab 01/29/24 16:55 02/02/24 02:28 Hydrocodone/Acetaminophen (*Crx) 5-325 Mg Tablet PO 2 tab Q6H PRN Administration Pain Rated 7-10 Amoxicillin/Clavulanate Potassium 1 tablet 02/02/24 11:00 02/04/24 08:58 Amoxicillin/Clavulanate K 875-125 Mg Tab PO 1 tablet Q12HR TERI Administration Cyclobenzaprine HCl 5 mg 02/02/24 14:00 02/04/24 05:23 Cyclobenzaprine Hcl 5 Mg Tablet PO 5 mg Q8HR TERI Administration Diphenhydramine HCl 25 mg 01/29/24 15:23 01/29/24 16:03 Diphenhydramine Hcl Cap 25 Mg Capsule PO 25 mg Q6H PRN Administration Itching Enoxaparin Sodium 40 mg 02/02/24 09:00 02/04/24 09:00 Enoxaparin 40 Mg/0.4 Ml Syringe SUB-Q 40 mg DAILY TERI Administration Fidaxomicin 200 mg 01/29/24 21:00 02/04/24 08:58 Fidaxomicin 200 Mg Tablet PO 02/08/24 20:59 200 mg Q12HR TERI Administration Furosemide 20 mg 01/29/24 09:00 01/29/24 09:26 Furosemide 20 Mg Tablet PO 20 mg DAILY TERI Administration Lidocaine 1 patch 02/02/24 11:25 02/04/24 08:59 Lidocaine 5% Patch TRANSDERM 1 patch DAILY TERI Administration Losartan Potassium 50 mg 01/29/24 09:00 01/29/24 09:26 Losartan Potassium 50 Mg Tablet PO 50 mg DAILY TERI Administration Metoprolol Succinate 50 mg 01/29/24 09:00 02/04/24 08:58 Metoprolol Succinate Ext Rel 50 Mg Tabcr PO 50 mg DAILY TERI Administration Nicotine 1 patch 01/29/24 09:00 02/04/24 09:00 Nicotine (*Pbkc) 14 Mg Patch TRANSDERM 1 patch DAILY TERI Administration Ondansetron HCl 4 mg 01/28/24 22:26 02/04/24 08:59 Ondansetron Inj 4 Mg/2 Ml Vial IV PUSH 4 mg Q6H PRN Administration Nausea And Vomiting Potassium Chloride 20 meq 01/29/24 09:00 02/04/24 08:59 Potassium Chloride 20 Meq Er Tablet PO 20 meq BID TERI Administration Rosuvastatin Calcium 20 mg 01/29/24 09:00 02/04/24 08:59 Rosuvastatin 20 Mg Tablet PO 20 mg DAILY TERI Administration Radiology Results: ITS Impressions Abdomen MRI 02/03/24 13:00 IMPRESSION: 1. Cirrhosis. 2. Mild dilation of the common bile duct to 8 mm with no intrapedicular ductal dilation or choledocholithiasis likely related to prior cholecystectomy. 3. 12 mm unilocular simple appearing cystic lesion at the body of the pancreas. The differential diagnosis includes pseudocyst, intraductal papillary mucinous neoplasm (IPMN) and significantly less likely mucinous cystic neoplasm (MCN),, serous cystadenoma and neuroendocrine tumor. Correlate for history of pancreatitis. 4. Anasarca with small bilateral pleural effusions, small amount of ascites and excessive mesenteric, retroperitoneal and body wall edema. 5. Small likely complex pericardial effusion with increased T1 and decreased T2 signal consistent with either hemorrhagic or proteinaceous fluid. Correlate clinically for pericarditis. 6. Acute T12 superior endplate compression fracture with 10% central vertebral body height loss, new since CT from one week prior. 7. 2.2 cm right renal lesion with increased T1 and very low T2 signal which be most consistent with a proteinaceous/hemorrhagic cyst. 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 2. Cirrhosis of the liver. 3. 2.3 cm hemorrhagic cyst in right kidney. 4. Small pleural effusions. 5. 14 mm cystic lesion of the pancreas. The differential diagnosis includes pseudocyst, intraductal papillary mucinous neoplasm (IPMN), mucinous cystic neoplasm (MCN), serous cystadenoma, and neuroendocrine tumor. Consider abdomen MRI without and with contrast in 2 years. 6. Geographic area of subtle hypoenhancement in the spleen with interval improvement, consistent with subacute infarct. 7. Small volume of ascites. 8. Acute T12 burst fracture, new from 01/28/2024. 9. Worsened small pericardial effusion. Labs Labs: Laboratory Results - last 24 hr 02/04/24 05:34 WBC 5.3 RBC 3.21 L Hgb 9.8 L Hct 29.3 L MCV 91.3 MCH 30.5 MCHC 33.4 RDW 12.5 Plt Count 137 L MPV 9.8 Immature Gran % (Auto) 1.3 H Neut % (Auto) 68.5 Lymph % (Auto) 19.3 [place] % (Auto) 8.8 H Eos % (Auto) 1.7 Baso % (Auto) 0.4 Lymph # (Auto) 1.03 [place] # (Auto) 0.5 Eos # (Auto) 0.1 Baso # (Auto) 0.0 Abs Immat Gran (auto) 0.07 H Absolute Neuts (auto) 3.7 Absolute Nucleated RBC 0.000 Nucleated RBC % 0.0 % Immature Plt Fraction 3.8 Sodium 134 L Potassium 3.9 Chloride 108 H Carbon Dioxide 25 Anion Gap 1 L BUN 6 L Creatinine 1.00 Estim Creat Clear Calc 37 Estimated GFR 55 L Glucose 106 Calcium 8.4 Total Bilirubin 0.4 AST 21 ALT 13 Alkaline Phosphatase 52 Total Protein 6.0 L Albumin 3.0 L
--- NOTE | 2024-02-04 13:54 | PCNWS ---
Weekly nutritional screen. Patient is tolerating current Low Fiber diet. Intakes are variable, 25-100%. Appetite is still not good but starting to improve. Diarrhea is resolved. Declines supplements. No weight loss reported. No nutritional needs at this time.
--- NOTE | 2024-02-04 15:50 | P.PNIM_ITS ---
Progress Note: A&P Assessment and Plan (1) Abscess of sigmoid colon: Code(s): K63.0 - Abscess of intestine Status: Acute Assessment and Plan: * CT of the abdomen and pelvis showed a 2.8 x 2.3 x 3.2 cm perisigmoid abscess abutting the vagina * general surgery following, treating conservatively * continue Zosyn * blood cultures showing no growth to date on preliminary read 01/30 * General surgery following * Increase to full liquid diet today * Blood cultures still showing no growth to date on preliminary read * Continue Zosyn 01/31 * Continue full liquid diet * Continue Zofran for nausea * Blood culture showing no growth to date on preliminary read * General surgery continues to follow * Continue Zosyn 02/01 * Continue low-fiber diet * Blood culture still showing no growth to date on preliminary read * General surgery of signed off * Zosyn changed to Augmentin 02/02 * Will get CT of the abdomen and pelvis today with contrast now that her creatinine is back to baseline * Continue Augmentin * Blood culture still showing no growth to date 02/03 * 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 difficile colitis: Code(s): A04.72 - Enterocolitis due to Clostridium difficile, not specified as recurrent Status: Acute Assessment and Plan: * Found to be C diff positive * Started on Dificid 01/30 * continue Dificid * Still having BM's however more loose than watery now 01/31 * Bowel movements have slowed down and have become more solid * Continue Dificid 02/02 * Last bowel movement was around 4:00 p.m. yesterday, diarrhea has slowed * Continue Dificid (3) UTI (urinary tract infection): Code(s): N39.0 - Urinary tract infection, site not specified Status: Acute Assessment and Plan: * UA showing cloudy urine appearance, urine specific gravity 1.040, 3+ urine protein, 3+ urine blood, positive nitrate, 1+ leukocyte, 3-5 urine RBC, 11-20 urine WBC, 4+ urine bacteria. * Urine culture showing E coli on final read Switched Zosyn to Augmentin today 02/02 * Continue Augmentin (4) RUSSELL (acute kidney injury): Code(s): N17.9 - Acute kidney failure, unspecified Status: Acute Assessment and Plan: * initial creatinine 1.50>1.60>1.70> 1.40>1.3>1.10->1.0> 1.0-trending down today * baseline creatinine 0.90 * continue trend * patient received IV contrast with CT of the abdomen and pelvis initially * avoid nephrotoxic medications 02/03 * appears resolved (5) Hyponatremia: Code(s): E87.1 - Hypo-osmolality and hyponatremia Status: Acute Assessment and Plan: * sodium 133>134>136>136>135>134>134 * continue to trend * Stable, not symptomatic (6) Splenic infarct: Code(s): D73.5 - Infarction of spleen Status: Acute Assessment and Plan: * CT of the abdomen and pelvis showed splenic infarct which may be subacute * will need to be re-scanned once creatinine normalizes * Hematology following 02/02 * Creatinine down to 1.0 which is her baseline, we will go ahead and repeat CT of the abdomen and pelvis to assess splenic infarct * Hematology following 02/03 * Spoke with Dr. Marie (Oncology) who suggests another CT in 2 weeks to reassess. There is no intervention for this. (7) Congestive heart failure: Code(s): I50.9 - Heart failure, unspecified Status: Chronic Assessment and Plan: * no echo to review * continue metoprolol * Will restart lasix * CT fo the abdomen and pelvis showing worsened small pericardial effusion (8) Lesion of pancreas: Code(s): K86.9 - Disease of pancreas, unspecified Status: Acute Assessment and Plan: * CT of the abdomen and pelvis showed a 12 mm cystic lesion of the pancreas * will need MRI with and without contrast in 2 years to re-evaluate * Will get MRI of the pancreas today 02/03 * CT of the abdomen and pelvis shown 14mm cystic lesion of the pancreas * MRI of the abdomen and pelvis shown 12 mm unilocular simple appearing cystic lesion at the body of the pancreas * Lipase was normal on 01/28/24 --28 U/L * No history of pancreatitis (9) Kidney mass: Code(s): N28.89 - Other specified disorders of kidney and ureter Status: Acute Assessment and Plan: * CT of the abdomen and pelvis shown a 2.3 cm right kidney mass, which may be a hemorrhagic cyst, but renal cell carcinoma cannot be excluded. * will need a repeat Abdomen CT without and with contrast however we will have to wait until her RUSSELL resolve 02/02 * Will get CT of the abdomen and pelvis with and without contrast today to reassess 02/03 * CT of the abdomen/pelvis shown 2.3 cm hemorrhagic cyst in the right kidney * MRI shown 2.2 cm right renal lesion with increased T1 and very low T2 signal which is most consistent with a proteinaceous/hemorrhagic cyst * Nephrology consulted for evaluation of cyst (10) Cirrhosis: Code(s): K74.60 - Unspecified cirrhosis of liver Status: Acute Assessment and Plan: * CT of the abdomen pelvis showing cirrhosis of the liver * liver enzymes normal * Hepatitis panel negative (11) Hypertension: Code(s): I10 - Essential (primary) hypertension Status: Chronic Assessment and Plan: * blood pressure ranging 118/35-125/60 * Will restart Losartan today * continue metoprolol (12) Burst fracture of T12 vertebra: Code(s): S22.081A - Stable burst fracture of T11-T12 vertebra, initial encounter for closed fracture Status: Acute Assessment and Plan: * CT scan of the abdomen and pelvis revealed a T12 burst fracture which appears to be new as it was not noted on CT scan prior. * Neurosurgery consulted * Likely will need TLSO brace * Continue pain control * Continue Lidocaine patch * Continue flexeril Subjective Date/time seen: 02/04/24 15:50 Interval history: Interval history: This is a 73-year-old female who presented to the hospital on 01/28/2024 with complaints of lower abdominal pain. Workup in the hospital included an abdomen/pelvis CT which 2.8 x 2.3 x 3.2 cm vernon sigmoid abscess abutting the vagina, cirrhosis of the liver, splenic infarct which may be subacute, 12 mm cystic lesion of the pancreas, 2.3 cm right kidney mass which may be a cyst-- recommending further imaging. Initial labs showed a white blood cell count 11.3, hemoglobin 11.9, platelet count 123, sodium 133, creatinine 0.50, EGFR 34. UA was obtained which showed a cloudy urine appearance, urine specific gravity 1.040, 3+ urine protein, 3+ urine blood, positive nitrate, 1+ leukocytes, 3-5 urine RBC, 11-20 urine WBC, 4+ urine bacteria. Urine and blood cultures were obtained and are pending. EKG showed sinus rhythm with a rate of 65, QTC 433. She was given a dose of Zofran, morphine, 1 L of normal saline, and Zosyn while in the ED. General surgery was consulted. Subjective: Patient states that her back is still hurting. She has a new T12 burst fracture that shown up on CT scan that was not on the previous CT. Her pain started when she tried pulling herself over in the bed. She did admit to having weak bones. She has not had a bone scan in quite some time. She denies any other complaints at this time. Labs reviewed. Review of Systems Review of Systems: 12 systems were reviewed and are negativ e except for as per HPI. All systems reviewed & are unremarkable except as noted in HPI and below Constitutional: Constitutional: Reports as per HPI and Reports no additional constitutional complaints Eyes: Eyes: Reports as per HPI and Reports no additional eye complaints ENT: Reports system reviewed and no additional complaints, except as documented and Reports as per HPI Cardiovascular: Cardiovascular: Reports as per HPI and Reports no additional cardiovascular complaints Respiratory: Respiratory: Reports as per HPI and Reports no additional respiratory complaints Gastrointestinal: Gastrointestinal: Reports as per HPI and Reports no additional gastrointestinal complaints Genitourinary: Genitourinary: Reports no additional female genitourinary complaints and Reports as per HPI Musculoskeletal: Musculoskeletal: Reports no additional musculoskeletal c omplaints and Reports as per HPI Integumentary/Breasts: Skin/Breast: Reports system reviewed and no additional complaints, except as docu and Reports as per HPI Neurologic: Reports system reviewed and no additional complaints, except as documented and Reports as per HPI Psychiatric: Psychiatric: Reports no additional psychiatric complaints and Reports as per HPI Exam Narrative: General: In no acute distress, well nourished Cardiac: Normal S1 and S2. No murmur, gallops or friction rubs, peripheral pulses intact. Respiratory: Lungs clear to auscultation, no adventitious lung sounds, currently on room air Gastrointestinal: soft, mildly distended, non-tender, normoactive bowel sounds. : voiding without difficulty. Spine: Lower lumbar pain Extremities: moves all extremities well, no edema Neuro: Alert and oriented x4 Objective Data Vital Signs Vital Signs: Vital Signs - 24 hr 02/03/24 16:00 02/03/24 20:00 02/03/24 22:00 Temperature 98.5 F Pulse Rate 78 79 81 Respiratory Rate 18 Blood Pressure 139/46 L Pulse Oximetry 98 Oxygen Delivery 02/03/24 22:00 02/04/24 00:00 02/04/24 04:00 Temperature Pulse Rate 80 81 Respiratory Rate Blood Pressure Pulse Oximetry Oxygen Delivery Room Air 02/04/24 06:00 02/04/24 08:58 02/04/24 14:00 Temperature 98.0 F 97.8 F Pulse Rate 82 95 78 Respiratory Rate 18 18 Blood Pressure 116/44 L 126/58 L Pulse Oximetry 97 96 Oxygen Delivery Intake/Output Intake/Output: Intake & Output 02/01/24 02/02/24 02/03/24 02/04/24 23:59 23:59 23:59 23:59 Intake Total 2986 1960 560 720 Output Total 2 Balance 2986 1960 558 720 Meds/Results Medications: Active Medications Generic Name Dose Route Start Last Admin Trade Name Freq PRN Reason Stop Dose Admin Acetaminophen 650 mg 02/01/24 11:50 02/02/24 20:10 Acetaminophen 325 Mg Tablet PO 650 mg Q6H PRN Administration Mild Pain (1-3) or Fever Hydrocodone Bitart/Acetaminophen 1 tab 01/28/24 23:15 02/04/24 13:33 Hydrocodone/Acetaminophen (*Crx) 5-325 Mg Tablet PO 1 tab Q4H PRN Administration Moderate Pain (4-6) Hydrocodone Bitart/Acetaminophen 2 tab 01/29/24 16:55 02/02/24 02:28 Hydrocodone/Acetaminophen (*Crx) 5-325 Mg Tablet PO 2 tab Q6H PRN Administration Pain Rated 7-10 Amoxicillin/Clavulanate Potassium 1 tablet 02/02/24 11:00 02/04/24 08:58 Amoxicillin/Clavulanate K 875-125 Mg Tab PO 1 tablet Q12HR TERI Administration Cyclobenzaprine HCl 5 mg 02/02/24 14:00 02/04/24 13:33 Cyclobenzaprine Hcl 5 Mg Tablet PO 5 mg Q8HR TERI Administration Diphenhydramine HCl 25 mg 01/29/24 15:23 01/29/24 16:03 Diphenhydramine Hcl Cap 25 Mg Capsule PO 25 mg Q6H PRN Administration Itching Enoxaparin Sodium 40 mg 02/02/24 09:00 02/04/24 09:00 Enoxaparin 40 Mg/0.4 Ml Syringe SUB-Q 40 mg DAILY TERI Administration Fidaxomicin 200 mg 01/29/24 21:00 02/04/24 08:58 Fidaxomicin 200 Mg Tablet PO 02/08/24 20:59 200 mg Q12HR TERI Administration Furosemide 20 mg 01/29/24 09:00 01/29/24 09:26 Furosemide 20 Mg Tablet PO 20 mg DAILY TERI Administration Lidocaine 1 patch 02/02/24 11:25 02/04/24 08:59 Lidocaine 5% Patch TRANSDERM 1 patch DAILY TERI Administration Losartan Potassium 50 mg 01/29/24 09:00 01/29/24 09:26 Losartan Potassium 50 Mg Tablet PO 50 mg DAILY TERI Administration Metoprolol Succinate 50 mg 01/29/24 09:00 02/04/24 08:58 Metoprolol Succinate Ext Rel 50 Mg Tabcr PO 50 mg DAILY TERI Administration Nicotine 1 patch 01/29/24 09:00 02/04/24 09:00 Nicotine (*Ronda) 14 Mg Patch TRANSDERM 1 patch DAILY TERI Administration Ondansetron HCl 4 mg 01/28/24 22:26 02/04/24 08:59 Ondansetron Inj 4 Mg/2 Ml Vial IV PUSH 4 mg Q6H PRN Administration Nausea And Vomiting Potassium Chloride 20 meq 01/29/24 09:00 02/04/24 08:59 Potassium Chloride 20 Meq Er Tablet PO 20 meq BID TERI Administration Rosuvastatin Calcium 20 mg 01/29/24 09:00 02/04/24 08:59 Rosuvastatin 20 Mg Tablet PO 20 mg DAILY TERI Administration Radiology Results: ITS Impressions Abdomen MRI 02/03/24 13:00 IMPRESSION: 1. Cirrhosis. 2. Mild dilation of the common bile duct to 8 mm with no intrapedicular ductal dilation or choledocholithiasis likely related to prior cholecystectomy. 3. 12 mm unilocular simple appearing cystic lesion at the body of the pancreas. The differential diagnosis includes pseudocyst, intraductal papillary mucinous neoplasm (IPMN) and significantly less likely mucinous cystic neoplasm (MCN),, serous cystadenoma and neuroendocrine tumor. Correlate for history of pancreatitis. 4. Anasarca with small bilateral pleural effusions, small amount of ascites and excessive mesenteric, retroperitoneal and body wall edema. 5. Small likely complex pericardial effusion with increased T1 and decreased T2 signal consistent with either hemorrhagic or proteinaceous fluid. Correlate clinically for pericarditis. 6. Acute T12 superior endplate compression fracture with 10% central vertebral body height loss, new since CT from one week prior. 7. 2.2 cm right renal lesion with increased T1 and very low T2 signal which be most consistent with a proteinaceous/hemorrhagic cyst. 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 2. Cirrhosis of the liver. 3. 2.3 cm hemorrhagic cyst in right kidney. 4. Small pleural effusions. 5. 14 mm cystic lesion of the pancreas. The differential diagnosis includes pseudocyst, intraductal papillary mucinous neoplasm (IPMN), mucinous cystic ne oplasm (MCN), serous cystadenoma, and neuroendocrine tumor. Consider abdomen MRI without and with contrast in 2 years. 6. Geographic area of subtle hypoenhancement in the spleen with interval improvement, consistent with subacute infarct. 7. Small volume of ascites. 8. Acute T12 burst fracture, new from 01/28/2024. 9. Worsened small pericardial effusion. Labs Labs: Laboratory Results - last 24 hr 02/04/24 05:34 WBC 5.3 RBC 3.21 L Hgb 9.8 L Hct 29.3 L MCV 91.3 MCH 30.5 MCHC 33.4 RDW 12.5 Plt Count 137 L MPV 9.8 Immature Gran % (Auto) 1.3 H Neut % (Auto) 68.5 Lymph % (Auto) 19.3 Sharkey % (Auto) 8.8 H Eos % (Auto) 1.7 Baso % (Auto) 0.4 Lymph # (Auto) 1.03 Sharkey # (Auto) 0.5 Eos # (Auto) 0.1 Baso # (Auto) 0.0 Abs Immat Gran (auto) 0.07 H Absolute Neuts (auto) 3.7 Absolute Nucleated RBC 0.000 Nucleated RBC % 0.0 % Immature Plt Fraction 3.8 Sodium 134 L Potassium 3.9 Chloride 108 H Carbon Dioxide 25 Anion Gap 1 L BUN 6 L Creatinine 1.00 Estim Creat Clear Calc 37 Estimated GFR 55 L Glucose 106 Calcium 8.4 Total Bilirubin 0.4 AST 21 ALT 13 Alkaline Phosphatase 52 Total Protein 6.0 L Albumin 3.0 L Quality VTE Prophylaxis VTE prophylaxis: mechanical ordered
[2024-02-05] VITALS (10 sets, daily range): BP systolic 110–156; BP diastolic 54–64; PULSE 82–92; RESP 16; TEMP 36.2–36.8; O2SAT 95–99
[2024-02-05] MEDS: HYDROcodone/acetaminophen (*CRX) 5-325 MG TABLET 1 TAB PO ×5 (01:36→21:05)
[2024-02-05] MEDS: CYCLOBENZAPRINE HCL 5 MG TABLET PO ×3 (05:36→21:05)
[2024-02-05 06:20] LABS: Basophils Percent Auto 0.2 % (0.2-1.2); Eosinophils Absolute Auto 0.1 K/mm3 (0-0.3); Eosinophils Percent Auto 2.1 % (0-4.4); Immature Granulocyte Absolute 0.08 K/mm3 (0.00-0.031); Immature Granulocyte Percent A 1.5 % (0-0.5); Lymphocytes Absolute Auto 1.11 K/mm3 (0.9-3.2); Lymphocytes Percent Auto 21.4 % (18.3-44.2); Mean Corpuscular HGB Conc 33.3 g/dl (32-36); Mean Corpuscular Hemoglobin 30.7 pg (26-34); Monocytes Absolute Auto 0.4 K/mm3 (0.1-0.6); Monocytes Percent Auto 8.5 % (2.6-8.5); Neutrophils Absolute Auto 3.4 K/mm3 (1.3-6.7); Neutrophils Percent Auto 66.3 % (45.5-73.1); Platelet Count Result 135 k/mm3 (150-375); Red Blood Count 3.26 M/mm3 (4.2-5.4); Red Cell Distribution Width 12.8 % (11.5-14.5); White Blood Count 5.2 K/mm3 (4.5-10.0)
[2024-02-05 06:38] LABS: Alanine Aminotransferase 12 U/L (6-35); Albumin Level 3.2 g/dL (3.5-5.1); Alkaline Phosphatase 53 U/L (38-126); Anion Gap 2 mmol/L (4-12); Aspartate Amino Transferase 21 U/L (14-36); Bilirubin,Total 0.5 mg/dL (0.2-1.3); Blood Urea Nitrogen 4 mg/dL (7-17); Calcium 8.6 mg/dL (8.4-10.2); Carbon Dioxide 27 mmol/L (22-30); Chloride 104 mmol/L (98-107); Estimated CRCL calculation 37 ml/min; Estimated Glomerular Filt Rate 55; Glucose 105 mg/dL (65-110); Potassium 3.9 mmol/L (3.4-5.0); Sodium 133 mmol/L (137-145)
[2024-02-05] MEDS: ENOXAPARIN 40 MG/0.4 ML SYRINGE SUB-Q (08:29)
[2024-02-05] MEDS: ROSUVASTATIN 20 MG TABLET PO (08:30)
[2024-02-05] MEDS: POTASSIUM CHLORIDE 20 MEQ ER TABLET PO ×2 (08:30→18:31)
[2024-02-05] MEDS: FUROSEMIDE 20 MG TABLET PO (08:30)
[2024-02-05] MEDS: METOPROLOL SUCCINATE EXT REL 50 MG TABCR PO (08:30)
[2024-02-05] MEDS: AMOXICILLIN/CLAVULANATE K 875-125 MG TAB 1 TABLET PO ×2 (08:30→21:05)
[2024-02-05] MEDS: LOSARTAN POTASSIUM 50 MG TABLET PO (08:30)
[2024-02-05] MEDS: FIDAXOMICIN 200 MG TABLET PO ×2 (08:30→21:06)
[2024-02-05] MEDS: LIDOCAINE 5% PATCH 1 PATCH TRANSDERM (08:36)
[2024-02-05] MEDS: NICOTINE (*PBKC) 14 MG PATCH 1 PATCH TRANSDERM (08:36)
--- NOTE | 2024-02-05 09:15 | P.CONNP_ITS ---
Assessment and Plan Assessment and plan (1) Renal cyst: Code(s): N28.1 - Cyst of kidney, acquired Status: Acute History of Present Illness Reason for Consult Consult date: 02/05/24 Reason for consult: Other (renal cyst) Chief Complaint Chief complaint: Perisigmoid Abscess Review of Systems 2 Review of Systems: As per HPI. 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 Anxiety Congestive heart failure Hyperlipidemia Hypertension Surgical History Surgical History History of appendectomy H/O hernia repair H/O colonoscopy with polypectomy The patient stated that she had 16 polyps removed at 1 time H/O bladder repair surgery X3 History of colectomy History of hysterectomy History of cholecystectomy Family History Family History Father History of open heart surgery Sibling History of open heart surgery Sibling H/O heart artery stent Pancreatic cancer Mother Heart disease CHF (congestive heart failure) COPD (chronic obstructive pulmonary disease) Social History Social History Social History: The patient continues to smoke a half a pack a cigarettes a day for 54 years. She lives with her brother and [id number]. The patient has 2 children. The patient is . The patient was essentially a homemaker. The patient smokes marijuana 2 to 3 times a week. The patient denies any alcohol or illicit drugs. The patient desires to be a full code and chooses her brother to be the durable power deputy prosecuting attorney for healthcare. The patient does not want to live in a vegetative state and she states her brother is aware of this. Smoking packs per day: 0.5 Smoking cigarettes per day: 10.0 Years smoked: 50 Smoking pack-years: 25.00 Smoking status: Current every day smoker Tobacco type: cigarettes Alcohol intake: never Substance use type: marijuana Other substance usage details: 2-3 times a week Do You Feel Safe in your Home?: Yes Lack of Transportation: No Lack of Food: Never True Current Housing: I Have Housing Concerned About Future Housing: No Difficulty Paying Gas/Electric Bills: No Difficulty Paying for Meds: No Currently Unemployed: No Education: High School Diploma/GED Difficulty w/ Childcare or Family Care: No Spiritual care concerns: No Meds Home Medications and Allergies Home Medications ?Medication ?Instructions ?Recorded ?Confirmed ?Type losartan 50 mg tablet 50 mg PO DAILY 10/15/20 01/28/24 History metoprolol succinate 50 mg 50 mg PO DAILY 10/15/20 01/28/24 History tablet,extended release 24 hr furosemide 40 mg tablet 20 mg (1/2 x 40 mg) PO DAILY #30 10/17/20 01/28/24 Rx tabs potassium chloride 20 mEq 20 meq PO BID #60 tabs 10/17/20 01/28/24 Rx tablet,extended release (K-Tab) rosuvastatin 20 mg tablet 20 mg PO DAILY 01/28/24 01/28/24 History Allergies Allergy/AdvReac Type Severity Reaction Status Date / Time codeine Allergy Vomiting Verified 10/15/20 15:55 Sulfa (Sulfonamide Allergy Hives Verified 10/15/20 15:55 Antibiotics) Vital Signs Vital Signs Temp Pulse Resp BP Pulse Ox O2 Del Method 02/05/24 08:30 91 96 Room Air 02/05/24 08:26 97.1 F L 92 16 110/60 96 02/05/24 08:00 82 02/05/24 05:39 98.3 F 83 16 140/54 L 95 02/05/24 04:00 84 02/05/24 00:00 86 02/04/24 22:02 98.6 F 86 16 153/66 H 98 02/04/24 20:00 79 02/04/24 20:00 86 16 98 Room Air 02/04/24 16:00 80 02/04/24 14:00 97.8 F 78 18 126/58 L 96 Exam 2 Narrative: GENERAL APPEARANCE: elderly but well developed well nourished female in no acute distress HEENT: normocephalic, atraumatic, normal conjunctiva and sclera, nares patient NECK: no lymphadenopathy, thyromegaly, or JVD MOUTH: normal lips, teeth, and gums CARDIOVASCULAR: RRR, normal S1 and S2, no rub RESPIRATORY: clear to auscultation anteriorly ABDOMEN: soft, milder TTP and distension, positive bowel sounds present EXTREMITIES: no evidence of cyanosis, clubbing, or edema NEUROLOGICAL: alert and oriented x 3; CN II - XII intact bilaterally; no focal deficits noted Results Lab Results 02/05/24 06:14 02/05/24 06:14 Lab results: Most recent lab results Calcium 8.6 mg/dL (8.4-10.2) 02/05/24 06:14 Phosphorus 3.3 mg/dL (2.5-4.5) 01/29/24 05:27 Magnesium 2.0 mg/dL (1.6-2.3) 01/29/24 05:27
[2024-02-05] MEDS: ONDANSETRON INJ 4 MG/2 ML VIAL IV PUSH ×2 (13:20→18:50)
--- NOTE | 2024-02-05 14:17 | P.PNIM_ITS ---
Progress Note: A&P Assessment and Plan (1) Abscess of sigmoid colon: Code(s): K63.0 - Abscess of intestine Status: Acute Assessment and Plan: * CT of the abdomen and pelvis showed a 2.8 x 2.3 x 3.2 cm perisigmoid abscess abutting the vagina * general surgery following, treating conservatively * continue Zosyn * blood cultures showing no growth to date on preliminary read 01/30 * General surgery following * Increase to full liquid diet today * Blood cultures still showing no growth to date on preliminary read * Continue Zosyn 01/31 * Continue full liquid diet * Continue Zofran for nausea * Blood culture showing no growth to date on preliminary read * General surgery continues to follow * Continue Zosyn 02/01 * Continue low-fiber diet * Blood culture still showing no growth to date on preliminary read * General surgery of signed off * Zosyn changed to Augmentin 02/02 * Will get CT of the abdomen and pelvis today with contrast now that her creatinine is back to baseline * Continue Augmentin * Blood culture still showing no growth to date 02/03 * 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 difficile colitis: Code(s): A04.72 - Enterocolitis due to Clostridium difficile, not specified as recurrent Status: Acute Assessment and Plan: * Found to be C diff positive * Started on Dificid 01/30 * continue Dificid * Still having BM's however more loose than watery now 01/31 * Bowel movements have slowed down and have become more solid * Continue Dificid 02/02 * Last bowel movement was around 4:00 p.m. yesterday, diarrhea has slowed * Continue Dificid 02/03 * Will need 5 more doses of Dificid on discharge (3) UTI (urinary tract infection): Code(s): N39.0 - Urinary tract infection, site not specified Status: Acute Assessment and Plan: * UA showing cloudy urine appearance, urine specific gravity 1.040, 3+ urine protein, 3+ urine blood, positive nitrate, 1+ leukocyte, 3-5 urine RBC, 11-20 urine WBC, 4+ urine bacteria. * Urine culture showing E coli on final read Switched Zosyn to Augmentin today 02/02 * Continue Augmentin (4) RUSSELL (acute kidney injury): Code(s): N17.9 - Acute kidney failure, unspecified Status: Acute Assessment and Plan: * initial creatinine 1.50>1.60>1.70> 1.40>1.3>1.10->1.0> 1.0-trending down today * baseline creatinine 0.90 * continue trend * patient received IV contrast with CT of the abdomen and pelvis initially * avoid nephrotoxic medications 02/03 * appears resolved (5) Hyponatremia: Code(s): E87.1 - Hypo-osmolality and hyponatremia Status: Acute Assessment and Plan: * sodium 133>134>136>136>135>134>134 * continue to trend * Stable, not symptomatic (6) Splenic infarct: Code(s): D73.5 - Infarction of spleen Status: Acute Assessment and Plan: * CT of the abdomen and pelvis showed splenic infarct which may be subacute * will need to be re-scanned once creatinine normalizes * Hematology following 02/02 * Creatinine down to 1.0 which is her baseline, we will go ahead and repeat CT of the abdomen and pelvis to assess splenic infarct * Hematology following 02/03 * Spoke with Dr. Marie (Oncology) who suggests another CT in 2 weeks to reassess. There is no intervention for this. (7) Congestive heart failure: Code(s): I50.9 - Heart failure, unspecified Status: Chronic Assessment and Plan: * no echo to review * continue metoprolol * Will restart lasix * CT fo the abdomen and pelvis showing worsened small pericardial effusion (8) Lesion of pancreas: Code(s): K86.9 - Disease of pancreas, unspecified Status: Acute Assessment and Plan: * CT of the abdomen and pelvis showed a 12 mm cystic lesion of the pancreas * will need MRI with and without contrast in 2 years to re-evaluate * Will get MRI of the pancreas today 02/03 * CT of the abdomen and pelvis shown 14mm cystic lesion of the pancreas * MRI of the abdomen and pelvis shown 12 mm unilocular simple appearing cystic l esion at the body of the pancreas * Lipase was normal on 01/28/24 --28 U/L * No history of pancreatitis (9) Kidney mass: Code(s): N28.89 - Other specified disorders of kidney and ureter Status: Acute Assessment and Plan: * CT of the abdomen and pelvis shown a 2.3 cm right kidney mass, which may be a hemorrhagic cyst, but renal cell carcinoma cannot be excluded. * will need a repeat Abdomen CT without and with contrast however we will have to wait until her RUSSELL resolve 02/02 * Will get CT of the abdomen and pelvis with and without contrast today to reassess 02/03 * CT of the abdomen/pelvis shown 2.3 cm hemorrhagic cyst in the right kidney * MRI shown 2.2 cm right renal lesion with increased T1 and very low T2 signal which is most consistent with a proteinaceous/hemorrhagic cyst * Nephrology consulted for evaluation of cyst 02/04 * Nephrology consulted, appreciate their input (10) Cirrhosis: Code(s): K74.60 - Unspecified cirrhosis of liver Status: Acute Assessment and Plan: * CT of the abdomen pelvis showing cirrhosis of the liver * liver enzymes normal * Hepatitis panel negative (11) Hypertension: Code(s): I10 - Essential (primary) hypertension Status: Chronic Assessment and Plan: * blood pressure ranging 118/35-125/60 * Will restart Losartan today * continue metoprolol (12) Burst fracture of T12 vertebra: Code(s): S22.081A - Stable burst fracture of T11-T12 vertebra, initial encounter for closed fracture Status: Acute Assessment and Plan: * CT scan of the abdomen and pelvis revealed a T12 burst fracture which appears to be new as it was not noted on CT scan prior. * Neurosurgery consulted * Likely will need TLSO brace * Continue pain control * Continue Lidocaine patch * Continue flexeril Time Spent With Patient Time with patient: Greater than 35 minutes Subjective Date/time seen: 02/05/24 14:17 Interval history: Interval history: This is a 73-year-old female who presented to the hospital on 01/28/2024 with complaints of lower abdominal pain. Workup in the hospital included an a bdomen/pelvis CT which 2.8 x 2.3 x 3.2 cm vernon sigmoid abscess abutting the vagina, cirrhosis of the liver, splenic infarct which may be subacute, 12 mm cystic lesion of the pancreas, 2.3 cm right kidney mass which may be a cyst-- recommending further imaging. Initial labs showed a white blood cell count 11.3, hemoglobin 11.9, platelet count 123, sodium 133, creatinine 0.50, EGFR 34. UA was obtained which showed a cloudy urine appearance, urine specific gravity 1.040, 3+ urine protein, 3+ urine blood, positive nitrate, 1+ leukocytes, 3-5 urine RBC, 11-20 urine WBC, 4+ urine bacteria. Urine and blood cultures were obtained and are pending. EKG showed sinus rhythm with a rate of 65, QTC 433. She was given a dose of Zofran, morphine, 1 L of normal saline, and Zosyn while in the ED. General surgery was consulted. Subjective: Patient states her pain is much better today and is in the TLSO brace. She states the TLSO brace is improving her back pain significantly. Still waiting on PT and OT to see her for discharge planning. Nephrology to see patient today. She denies any other complaints today. Labs reviewed Review of Systems Review of Systems: 12 systems were reviewed and are negativ e except for as per HPI. All systems reviewed & are unremarkable except as noted in HPI and below Constitutional: Constitutional: Reports as per HPI and Reports no additional constitutional complaints Eyes: Eyes: Reports as per HPI and Reports no additional eye complaints ENT: Reports system reviewed and no additional complaints, except as documented and Reports as per HPI Cardiovascular: Cardiovascular: Reports as per HPI and Reports no additional cardiovascular complaints Respiratory: Respiratory: Reports as per HPI and Reports no additional respiratory complaints Gastrointestinal: Gastrointestinal: Reports as per HPI and Reports no additional gastrointestinal complaints Genitourinary: Genitourinary: Reports no additional female genitourinary complaints and Reports as per HPI Musculoskeletal: Musculoskeletal: Reports no additional musculoskeletal complaints and Reports as per HPI Integumentary/Breasts: Skin/Breast: Reports system reviewed and no additional complaints, except as docu and Reports as per HPI Neurologic: Reports system reviewed and no additional complaints, except as documented and Reports as per HPI Psychiatric: Psychiatric: Reports no additional psychiatric complaints and Reports as per HPI Exam Narrative: General: In no acute distress, well nourished Cardiac: Normal S1 and S2. No murmur, gallops or friction rubs, peripheral pulses intact. Respiratory: Lungs clear to auscultation, no adventitious lung sounds, currently on room air Gastrointestinal: soft, mildly distended, non-tender, normoactive bowel sounds. : voiding without difficulty. Spine: Lower lumbar pain, TLSO brace in place Extremities: moves all extremities well, no edema Neuro: Alert and oriented x4 Objective Data Vital Signs Vital Signs: Vital Signs - 24 hr 02/04/24 16:00 02/04/24 20:00 02/04/24 20:00 Temperature Pulse Rate 80 86 79 Respiratory Rate 16 Blood Pressure Pulse Oximetry 98 Oxygen Delivery Room Air 02/04/24 22:02 02/05/24 00:00 02/05/24 04:00 Temperature 98.6 F Pulse Rate 86 86 84 Respiratory Rate 16 Blood Pressure 153/66 H Pulse Oximetry 98 Oxygen Delivery 02/05/24 05:39 02/05/24 08:00 02/05/24 08:26 Temperature 98.3 F 97.1 F L Pulse Rate 83 82 92 Respiratory Rate 16 16 Blood Pressure 140/54 L 110/60 Pulse Oximetry 95 96 Oxygen Delivery 02/05/24 08:30 02/05/24 08:30 02/05/24 12:00 Temperature Pulse Rate 91 86 Respiratory Rate Blood Pressure Pulse Oximetry 96 Oxygen Delivery Room Air 02/05/24 14:00 Temperature 97.6 F Pulse Rate 90 Respiratory Rate 16 Blood Pressure 118/64 Pulse Oximetry 96 Oxygen Delivery Intake/Output Intake/Output: Intake & Output 02/02/24 02/03/24 02/04/24 02/05/24 23:59 23:59 23:59 23:59 Intake Total 1960 560 840 480 Output Total 2 100 Balance 1960 558 840 380 Meds/Results Medications: Active Medications Generic Name Dose Route Start Last Admin Trade Name Freq PRN Reason Stop Dose Admin Acetaminophen 650 mg 02/01/24 11:50 02/02/24 20:10 Acetaminophen 325 Mg Tablet PO 650 mg Q6H PRN Administration Mild Pain (1-3) or Fever Hydrocodone Bitart/Acetaminophen 1 tab 01/28/24 23:15 02/05/24 11:15 Hydrocodone/Acetaminophen (*Crx) 5-325 Mg Tablet PO 1 tab Q4H PRN Administration Moderate Pain (4-6) Hydrocodone Bitart/Acetaminophen 2 tab 01/29/24 16:55 02/02/24 02:28 Hydrocodone/Acetaminophen (*Crx) 5-325 Mg Tablet PO 2 tab Q6H PRN Administration Pain Rated 7-10 Amoxicillin/Clavulanate Potassium 1 tablet 02/02/24 11:00 02/05/24 08:30 Amoxicillin/Clavulanate K 875-125 Mg Tab PO 1 tablet Q12HR TERI Administration Cyclobenzaprine HCl 5 mg 02/02/24 14:00 02/05/24 13:19 Cyclobenzaprine Hcl 5 Mg Tablet PO 5 mg Q8HR TERI Administration Diphenhydramine HCl 25 mg 01/29/24 15:23 01/29/24 16:03 Diphenhydramine Hcl Cap 25 Mg Capsule PO 25 mg Q6H PRN Administration Itching Enoxaparin Sodium 40 mg 02/02/24 09:00 02/05/24 08:29 Enoxaparin 40 Mg/0.4 Ml Syringe SUB-Q 40 mg DAILY TERI Administration Fidaxomicin 200 mg 01/29/24 21:00 02/05/24 08:30 Fidaxomicin 200 Mg Tablet PO 02/08/24 20:59 200 mg Q12HR TERI Administration Furosemide 20 mg 01/29/24 09:00 02/05/24 08:30 Furosemide 20 Mg Tablet PO 20 mg DAILY TERI Administration Lidocaine 1 patch 02/02/24 11:25 02/05/24 08:36 Lidocaine 5% Patch TRANSDERM 1 patch DAILY TERI Administration Losartan Potassium 50 mg 01/29/24 09:00 02/05/24 08:30 Losartan Potassium 50 Mg Tablet PO 50 mg DAILY TERI Administration Metoprolol Succinate 50 mg 01/29/24 09:00 02/05/24 08:30 Metoprolol Succinate Ext Rel 50 Mg Tabcr PO 50 mg DAILY TERI Administration Nicotine 1 patch 01/29/24 09:00 02/05/24 08:36 Nicotine (*Pbkc) 14 Mg Patch TRANSDERM 1 patch DAILY TERI Administration Ondansetron HCl 4 mg 01/28/24 22:26 02/05/24 13:20 Ondansetron Inj 4 Mg/2 Ml Vial IV PUSH 4 mg Q6H PRN Administration Nausea And Vomiting Potassium Chloride 20 meq 01/29/24 09:00 02/05/24 08:30 Potassium Chloride 20 Meq Er Tablet PO 20 meq BID TERI Administration Rosuvastatin Calcium 20 mg 01/29/24 09:00 02/05/24 08:30 Rosuvastatin 20 Mg Tablet PO 20 mg DAILY TERI Administration Radiology Results: ITS Impressions Abdomen MRI 02/03/24 13:00 IMPRESSION: 1. Cirrhosis. 2. Mild dilation of the common bile duct to 8 mm with no intrapedicular ductal dilation or choledocholithiasis likely related to prior cholecystectomy. 3. 12 mm unilocular simple appearing cystic lesion at the body of the pancreas. The differential diagnosis includes pseudocyst, intraductal papillary mucinous neoplasm (IPMN) and significantly less likely mucinous cystic neoplasm (MCN),, serous cystadenoma and neuroendocrine tumor. Correlate for history of pancreatitis. 4. Anasarca with small bilateral pleural effusions, small amount of ascites and excessive mesenteric, retroperitoneal and body wall edema. 5. Small likely complex pericardial effusion with increased T1 and decreased T2 signal consistent with either hemorrhagic or proteinaceous fluid. Correlate clinically for pericarditis. 6. Acute T12 superior endplate compression fracture with 10% central vertebral body height loss, new since CT from one week prior. 7. 2.2 cm right renal lesion with increased T1 and very low T2 signal which be most consistent with a proteinaceous/hemorrhagic cyst. 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 2. Cirrhosis of the liver. 3. 2.3 cm hemorrhagic cyst in right kidney. 4. Small pleural effusions. 5. 14 mm cystic lesion of the pancreas. The differential diagnosis includes pseudocyst, intraductal papillary mucinous neoplasm (IPMN), mucinous cystic neoplasm (MCN), serous cystadenoma, and neuroendocrine tumor. Consider abdomen MRI without and with contrast in 2 years. 6. Geographic area of subtle hypoenhancement in the spleen with interval improvement, consistent with subacute infarct. 7. Small volume of ascites. 8. Acute T12 burst fracture, new from 01/28/2024. 9. Worsened small pericardial effusion. Labs Labs: Laboratory Results - last 24 hr 02/05/24 06:14 WBC 5.2 RBC 3.26 L Hgb 10.0 L Hct 30.0 L MCV 92.0 MCH 30.7 MCHC 33.3 RDW 12.8 Plt Count 135 L MPV 10.0 Immature Gran % (Auto) 1.5 H Neut % (Auto) 66.3 Lymph % (Auto) 21.4 [place] % (Auto) 8.5 Eos % (Auto) 2.1 Baso % (Auto) 0.2 Lymph # (Auto) 1.11 [place] # (Auto) 0.4 Eos # (Auto) 0.1 Baso # (Auto) 0.0 Abs Immat Gran (auto) 0.08 H Absolute Neuts (auto) 3.4 Absolute Nucleated RBC 0.000 Nucleated RBC % 0.0 Sodium 133 L Potassium 3.9 Chloride 104 Carbon Dioxide 27 Anion Gap 2 L BUN 4 L Creatinine 1.00 Estim Creat Clear Calc 37 Estimated GFR 55 L Glucose 105 Calcium 8.6 Total Bilirubin 0.5 AST 21 ALT 12 Alkaline Phosphatase 53 Total Protein 6.0 L Albumin 3.2 L Quality VTE Prophylaxis VTE prophylaxis: mechanical ordered
--- NOTE | 2024-02-05 15:50 | P.PNGS_ITS ---
Progress Note: A&P Assessment and Plan (1) Abscess of sigmoid colon: Code(s): K63.0 - Abscess of intestine Status: Acute Assessment and Plan: exam benign, cont low fiber diet and abx, no acute surgical issues, will s/o, call c ?s, issues Subjective Subjective Date/Time Seen: 02/05/24 15:50 Interval history: feels better, no pain, no N/V, aye low fiber diet Review of Systems Review of Systems: All systems reviewed & are unremarkable except as noted in HPI and below Exam Const: General: cooperative, comfortable and no acute distress Resp: Auscultation: clear to auscultation bilaterally Cardio: Rate: regular rate Rhythm: regular rhythm GI: Inspection: normal to inspection GI Palp: No abdominal tenderness and Yes Soft to palpation Objective Data Vital Signs Vital Signs: Vital Signs - 24 hr 02/04/24 16:00 02/04/24 20:00 02/04/24 20:00 Temperature Pulse Rate 80 86 79 Respiratory Rate 16 Blood Pressure Pulse Oximetry 98 Oxygen Delivery Room Air 02/04/24 22:02 02/05/24 00:00 02/05/24 04:00 Temperature 37.0 C Pulse Rate 86 86 84 Respiratory Rate 16 Blood Pressure 153/66 H Pulse Oximetry 98 Oxygen Delivery 02/05/24 05:39 02/05/24 08:00 02/05/24 08:26 Temperature 36.8 C 36.2 C L Pulse Rate 83 82 92 Respiratory Rate 16 16 Blood Pressure 140/54 L 110/60 Pulse Oximetry 95 96 Oxygen Delivery 02/05/24 08:30 02/05/24 08:30 02/05/24 12:00 Temperature Pulse Rate 91 86 Respiratory Rate Blood Pressure Pulse Oximetry 96 Oxygen Delivery Room Air 02/05/24 14:00 02/05/24 15:07 Temperature 36.4 C Pulse Rate 90 Respiratory Rate 16 Blood Pressure 118/64 Pulse Oximetry 96 Oxygen Delivery Room Air Intake/Output Intake/Output: Intake & Output 02/02/24 02/03/24 02/04/24 02/05/24 23:59 23:59 23:59 23:59 Intake Total 1960 560 840 480 Output Total 2 100 Balance 1960 558 840 380 Meds/Results Medications: Active Medications Generic Name Dose Route Start Last Admin Trade Name Freq PRN Reason Stop Dose Admin Acetaminophen 650 mg 02/01/24:50 02/02/24 20:10 Acetaminophen 325 Mg Tablet PO 650 mg Q6H PRN Administration Mild Pain (1-3) or Fever Hydrocodone Bitart/Acetaminophen 1 tab 01/28/24 23:15 02/05/24 15:21 Hydrocodone/Acetaminophen (*Crx) 5-325 Mg Tablet PO 1 tab Q4H PRN Administration Moderate Pain (4-6) Hydrocodone Bitart/Acetaminophen 2 tab 01/29/24 16:55 02/02/24 02:28 Hydrocodone/Acetaminophen (*Crx) 5-325 Mg Tablet PO 2 tab Q6H PRN Administration Pain Rated 7-10 Amoxicillin/Clavulanate Potassium 1 tablet 02/02/24 11:00 02/05/24 08:30 Amoxicillin/Clavulanate K 875-125 Mg Tab PO 1 tablet Q12HR TERI Administration Cyclobenzaprine HCl 5 mg 02/02/24 14:00 02/05/24 13:19 Cyclobenzaprine Hcl 5 Mg Tablet PO 5 mg Q8HR TERI Administration Diphenhydramine HCl 25 mg 01/29/24 15:23 01/29/24 16:03 Diphenhydramine Hcl Cap 25 Mg Capsule PO 25 mg Q6H PRN Administration Itching Enoxaparin Sodium 40 mg 02/02/24 09:00 02/05/24 08:29 Enoxaparin 40 Mg/0.4 Ml Syringe SUB-Q 40 mg DAILY TERI Administration Fidaxomicin 200 mg 01/29/24 21:00 02/05/24 08:30 Fidaxomicin 200 Mg Tablet PO 02/08/24 20:59 200 mg Q12HR TERI Administration Furosemide 20 mg 01/29/24 09:00 02/05/24 08:30 Furosemide 20 Mg Tablet PO 20 mg DAILY TERI Administration Lidocaine 1 patch 02/02/24 11:25 02/05/24 08:36 Lidocaine 5% Patch TRANSDERM 1 patch DAILY TERI Administration Losartan Potassium 50 mg 01/29/24 09:00 02/05/24 08:30 Losartan Potassium 50 Mg Tablet PO 50 mg DAILY TERI Administration Metoprolol Succinate 50 mg 01/29/24 09:00 02/05/24 08:30 Metoprolol Succinate Ext Rel 50 Mg Tabcr PO 50 mg DAILY TERI Administration Nicotine 1 patch 01/29/24 09:00 02/05/24 08:36 Nicotine (*Pbkc) 14 Mg Patch TRANSDERM 1 patch DAILY TERI Administration Ondansetron HCl 4 mg 01/28/24 22:26 02/05/24 13:20 Ondansetron Inj 4 Mg/2 Ml Vial IV PUSH 4 mg Q6H PRN Administration Nausea And Vomiting Potassium Chloride 20 meq 01/29/24 09:00 02/05/24 08:30 Potassium Chloride 20 Meq Er Tablet PO 20 meq BID TERI Administration Rosuvastatin Calcium 20 mg 01/29/24 09:00 02/05/24 08:30 Rosuvastatin 20 Mg Tablet PO 20 mg DAILY TERI Administration Radiology Results: ITS Impressions Abdomen MRI 02/03/24 13:00 IMPRESSION: 1. Cirrhosis. 2. Mild dilation of the common bile duct to 8 mm with no intrapedicular ductal dilation or choledocholithiasis likely related to prior cholecystectomy. 3. 12 mm unilocular simple appearing cystic lesion at the body of the pancreas. The differential diagnosis includes pseudocyst, intraductal papillary mucinous neoplasm (IPMN) and significantly less likely mucinous cystic neoplasm (MCN),, serous cystadenoma and neuroendocrine tumor. Correlate for history of pancreatitis. 4. Anasarca with small bilateral pleural effusions, small amount of ascites and excessive mesenteric, retroperitoneal and body wall edema. 5. Small likely complex pericardial effusion with increased T1 and decreased T2 signal consistent with either hemorrhagic or proteinaceous fluid. Correlate clinically for pericarditis. 6. Acute T12 superior endplate compression fracture with 10% central vertebral body height loss, new since CT from one week prior. 7. 2.2 cm right renal lesion with increased T1 and very low T2 signal which be most consistent with a proteinaceous/hemorrhagic cyst. 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 2. Cirrhosis of the liver. 3. 2.3 cm hemorrhagic cyst in right kidney. 4. Small pleural effusions. 5. 14 mm cystic lesion of the pancreas. The differential diagnosis includes pseudocyst, intraductal papillary mucinous neoplasm (IPMN), mucinous cystic neoplasm (MCN), serous cystadenoma, and neuroendocrine tumor. Consider abdomen MRI without and with contrast in 2 years. 6. Geographic area of subtle hypoenhancement in the spleen with interval improvement, consistent with subacute infarct. 7. Small volume of ascites. 8. Acute T12 burst fracture, new from 01/28/2024. 9. Worsened small pericardial effusion. Labs Labs: Laboratory Results - last 24 hr 02/05/24 06:14 WBC 5.2 RBC 3.26 L Hgb 10.0 L Hct 30.0 L MCV 92.0 MCH 30.7 MCHC 33.3 RDW 12.8 Plt Count 135 L MPV 10.0 Immature Gran % (Auto) 1.5 H Neut % (Auto) 66.3 Lymph % (Auto) 21.4 [place] % (Auto) 8.5 Eos % (Auto) 2.1 Baso % (Auto) 0.2 Lymph # (Auto) 1.11 [place] # (Auto) 0.4 Eos # (Auto) 0.1 Baso # (Auto) 0.0 Abs Immat Gran (auto) 0.08 H Absolute Neuts (auto) 3.4 Absolute Nucleated RBC 0.000 Nucleated RBC % 0.0 Sodium 133 L Potassium 3.9 Chloride 104 Carbon Dioxide 27 Anion Gap 2 L BUN 4 L Creatinine 1.00 Estim Creat Clear Calc 37 Estimated GFR 55 L Glucose 105 Calcium 8.6 Total Bilirubin 0.5 AST 21 ALT 12 Alkaline Phosphatase 53 Total Protein 6.0 L Albumin 3.2 L
[2024-02-06] MEDS: HYDROcodone/acetaminophen (*CRX) 5-325 MG TABLET 2 TAB PO ×4 (01:08→20:04)
[2024-02-06] MEDS: CYCLOBENZAPRINE HCL 5 MG TABLET PO ×3 (05:21→20:04)
[2024-02-06 06:00] LABS: Basophils Percent Auto 0.6 % (0.2-1.2); Eosinophils Absolute Auto 0.1 K/mm3 (0-0.3); Eosinophils Percent Auto 1.9 % (0-4.4); Hematocrit 29.3 % (37.0-47.0); Hemoglobin 9.8 g/dL (12.0-15.0); Immature Granulocyte Absolute 0.07 K/mm3 (0.00-0.031); Immature Granulocyte Percent A 1.3 % (0-0.5); Lymphocytes Absolute Auto 1.09 K/mm3 (0.9-3.2); Lymphocytes Percent Auto 20.8 % (18.3-44.2); Mean Corpuscular HGB Conc 33.4 g/dl (32-36); Mean Corpuscular Hemoglobin 30.8 pg (26-34); Mean Corpuscular Volume 92.1 fl (80-100); Mean Platelet Volume 10.4 fl (7.4-10.4); Monocytes Absolute Auto 0.4 K/mm3 (0.1-0.6); Monocytes Percent Auto 7.8 % (2.6-8.5); Neutrophils Absolute Auto 3.5 K/mm3 (1.3-6.7); Neutrophils Percent Auto 67.6 % (45.5-73.1); Platelet Count Result 147 k/mm3 (150-375); Red Blood Count 3.18 M/mm3 (4.2-5.4); Red Cell Distribution Width 12.8 % (11.5-14.5); White Blood Count 5.2 K/mm3 (4.5-10.0)
[2024-02-06 06:12] LABS: Alanine Aminotransferase 12 U/L (6-35); Albumin Level 3.2 g/dL (3.5-5.1); Alkaline Phosphatase 49 U/L (38-126); Anion Gap 0 mmol/L (4-12); Aspartate Amino Transferase 25 U/L (14-36); Bilirubin,Total 0.5 mg/dL (0.2-1.3); Blood Urea Nitrogen 6 mg/dL (7-17); Calcium 8.7 mg/dL (8.4-10.2); Carbon Dioxide 31 mmol/L (22-30); Chloride 102 mmol/L (98-107); Estimated CRCL calculation 34 ml/min; Estimated Glomerular Filt Rate 49; Glucose 104 mg/dL (65-110); Potassium 4.3 mmol/L (3.4-5.0); Sodium 133 mmol/L (137-145)
[2024-02-06 07:04] VITALS: BP 150/55; PULSE 82; RESP 16; TEMP 36.5; O2SAT 97
[2024-02-06 08:00] VITALS: O2SAT 97
[2024-02-06 08:15] VITALS: PULSE 7
[2024-02-06] MEDS: ENOXAPARIN 40 MG/0.4 ML SYRINGE SUB-Q (08:15)
[2024-02-06] MEDS: AMOXICILLIN/CLAVULANATE K 875-125 MG TAB 1 TABLET PO ×2 (08:15→20:04)
[2024-02-06] MEDS: METOPROLOL SUCCINATE EXT REL 50 MG TABCR PO (08:15)
[2024-02-06] MEDS: LOSARTAN POTASSIUM 50 MG TABLET PO (08:15)
[2024-02-06] MEDS: FUROSEMIDE 20 MG TABLET PO (08:15)
[2024-02-06] MEDS: LIDOCAINE 5% PATCH 1 PATCH TRANSDERM (08:15)
[2024-02-06] MEDS: FIDAXOMICIN 200 MG TABLET PO ×2 (08:15→20:04)
[2024-02-06] MEDS: NICOTINE (*PBKC) 14 MG PATCH 1 PATCH TRANSDERM (08:16)
[2024-02-06] MEDS: ROSUVASTATIN 20 MG TABLET PO (08:17)
[2024-02-06] MEDS: POTASSIUM CHLORIDE 20 MEQ ER TABLET PO ×2 (08:17→16:33)
--- NOTE | 2024-02-06 11:31 | P.CONS_ITS ---
Assessment and Plan Assessment and plan (1) MGUS (monoclonal gammopathy of unknown significance): Code(s): D47.2 - Monoclonal gammopathy Status: Acute Plan The patient has continued to improve clinically. Her abdominal pain and diarrhea have all but subsided. Examination of abdomen shows minimal tenderness. Plan: Okay to discharge patient home from Hematology Oncology perspective. She should be referred to us for outpatient follow-up. We will continue to monitor her with serial abdominal CT scans. HPI Data of Consult Date/Time: 02/06/24 11:31 Requesting Physician: Komal Hernandez APRN Primary Care Provider: Miracle Thomas, Consult Narrative Narrative: Regina Mason is a 73 year old female Review of Systems 2 Review of Systems: This is a 73-year-old lady who was admitted with abdominal and severe diarrhea. She was diagnosed with C difficile colitis and has been previously treated with resolution of abdominal pain and diarrhea. She was found to have splenic abscess and Hematology-Oncology service was consulted for this matter. We have been following her closely. Her abdominal CT scans have not shown any low for more aggressive treatment Such as drainage of the splenic abscess or laparotomy. 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 Anxiety Congestive heart failure Hyperlipidemia Hypertension Surgical History Surgical History History of appendectomy H/O hernia repair H/O colonoscopy with polypectomy The patient stated that she had 16 polyps removed at 1 time H/O bladder repair surgery X3 History of colectomy History of hysterectomy History of cholecystectomy Family History Family History Father History of open heart surgery Sibling History of open heart surgery Sibling H/O heart artery stent Pancreatic cancer Mother Heart disease CHF (congestive heart failure) COPD (chronic obstructive pulmonary disease) Social History Social History Social History: The patient continues to smoke a half a pack a cigarettes a day for 54 years. She lives with her brother and [id number]. The patient has 2 children. The patient is . The patient was essentially a homemaker. The patient smokes marijuana 2 to 3 times a week. The patient denies any alcohol or illicit drugs. The patient desires to be a full code and chooses her brother to be the durable power personnel officer for healthcare. The patient does not want to live in a vegetative state and she states her brother is aware of this. Smoking packs per day: 0.5 Smoking cigarettes per day: 10.0 Years smoked: 50 Smoking pack-years: 25.00 Smoking status: Current every day smoker Tobacco type: cigarettes Alcohol intake: never Substance use type: marijuana Other substance usage details: 2-3 times a week Do You Feel Safe in your Home?: Yes Lack of Transportation: No Lack of Food: Never True Current Housing: I Have Housing Concerned About Future Housing: No Difficulty Paying Gas/Electric Bills: No Difficulty Paying for Meds: No Currently Unemployed: No Education: High School Diploma/GED Difficulty w/ Childcare or Family Care: No Spiritual care concerns: No Meds Home Medications and Allergies Home Medications ?Medication ?Instructions ?Recorded ?Confirmed ?Type losartan 50 mg tablet 50 mg PO DAILY 10/15/20 01/28/24 History metoprolol succinate 50 mg 50 mg PO DAILY 10/15/20 01/28/24 History tablet,extended release 24 hr furosemide 40 mg tablet 20 mg (1/2 x 40 mg) PO DAILY #30 10/17/20 01/28/24 Rx tabs potassium chloride 20 mEq 20 meq PO BID #60 tabs 10/17/20 01/28/24 Rx tablet,extended release (K-Tab) rosuvastatin 20 mg tablet 20 mg PO DAILY 01/28/24 01/28/24 History amoxicillin 875 mg-potassium 1 tablet PO Q12H #8 tabs 02/07/24 Rx clavulanate 125 mg tablet cyclobenzaprine 10 mg tablet 10 mg PO TID PRN muscle spasm #30 02/07/24 Rx tabs fidaxomicin 200 mg tablet (Dificid) 200 mg PO Q12H #2 tabs 02/07/24 Rx hydrocodone 5 mg-acetaminophen 325 1 tablet PO Q6H PRN Pain Rated 02/07/24 Rx mg tablet 7-10 #20 tabs lidocaine 5 % topical patch 1 patch transdermal DAILY #15 ea 02/07/24 Rx (Lidoderm) Allergies Allergy/AdvReac Type Severity Reaction Status Date / Time codeine Allergy Vomiting Verified 10/15/20 15:55 Sulfa (Sulfonamide Allergy Hives Verified 10/15/20 15:55 Antibiotics) Vital Signs Vital Signs - 24 hr 02/05/24 12:00 02/05/24 14:00 02/05/24 15:07 Temperature 36.4 C Pulse Rate 86 90 Respiratory Rate 16 Blood Pressure 118/64 Pulse Oximetry 96 Oxygen Delivery Room Air 02/05/24 20:00 02/05/24 20:07 02/06/24 07:04 Temperature 36.5 C 36.5 C Pulse Rate 91 91 82 Respiratory Rate 16 16 16 Blood Pressure 156/62 H 150/55 H Pulse Oximetry 99 99 97 Oxygen Delivery Room Air 02/06/24 08:00 02/06/24 08:15 Temperature Pulse Rate 7 L Respiratory Rate Blood Pressure Pulse Oximetry 97 Oxygen Delivery Room Air Results Labs 02/07/24 05:10 02/07/24 05:10 Labs: Short CBC 02/06/24 Range/Units 05:29 WBC 5.2 (4.5-10.0) K/mm3 Hgb 9.8 L (12.0-15.0) g/dL Hct 29.3 L (37.0-47.0) % Plt Count 147 L (150-375) k/mm3 BMP 02/06/24 05:29 Sodium 133 L Potassium 4.3 Chloride 102 Carbon Dioxide 31 H BUN 6 L Creatinine 1.10 H Glucose 104 Calcium 8.7 Liver Function 02/06/24 Range/Units 05:29 Total Bilirubin 0.5 (0.2-1.3) mg/dL AST 25 (14-36) U/L ALT 12 (6-35) U/L Alkaline Phosphatase 49 (38-126) U/L Albumin 3.2 L (3.5-5.1) g/dL
[2024-02-06] MEDS: ONDANSETRON INJ 4 MG/2 ML VIAL IV PUSH ×2 (13:14→20:04)
[2024-02-06 15:17] VITALS: BP 140/32; PULSE 75; RESP 16; TEMP 36.3; O2SAT 97
--- NOTE | 2024-02-06 16:01 | P.PNIM_ITS ---
Progress Note: A&P Assessment and Plan (1) Abscess of sigmoid colon: Code(s): K63.0 - Abscess of intestine Status: Acute Assessment and Plan: * CT of the abdomen and pelvis showed a 2.8 x 2.3 x 3.2 cm perisigmoid abscess abutting the vagina * general surgery following, treating conservatively * continue Zosyn * blood cultures showing no growth to date on preliminary read 01/30 * General surgery following * Increase to full liquid diet today * Blood cultures still showing no growth to date on preliminary read * Continue Zosyn 01/31 * Continue full liquid diet * Continue Zofran for nausea * Blood culture showing no growth to date on preliminary read * General surgery continues to follow * Continue Zosyn 02/01 * Continue low-fiber diet * Blood culture still showing no growth to date on preliminary read * General surgery of signed off * Zosyn changed to Augmentin 02/02 * Will get CT of the abdomen and pelvis today with contrast now that her creatinine is back to baseline * Continue Augmentin * Blood culture still showing no growth to date 02/03 * 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 difficile colitis: Code(s): A04.72 - Enterocolitis due to Clostridium difficile, not specified as recurrent Status: Acute Assessment and Plan: * Found to be C diff positive * Started on Dificid 01/30 * continue Dificid * Still having BM's however more loose than watery now 01/31 * Bowel movements have slowed down and have become more solid * Continue Dificid 02/02 * Last bowel movement was around 4:00 p.m. yesterday, diarrhea has slowed * Continue Dificid 02/03 * Will need 5 more doses of Dificid on discharge (3) UTI (urinary tract infection): Code(s): N39.0 - Urinary tract infection, site not specified Status: Acute Assessment and Plan: * UA showing cloudy urine appearance, urine specific gravity 1.040, 3+ urine protein, 3+ urine blood, positive nitrate, 1+ leukocyte, 3-5 urine RBC, 11-20 urine WBC, 4+ urine bacteria. * Urine culture showing E coli on final read Switched Zosyn to Augmentin today 02/02 * Continue Augmentin (4) RUSSELL (acute kidney injury): Code(s): N17.9 - Acute kidney failure, unspecified Status: Acute Assessment and Plan: * initial creatinine 1.50>1.60>1.70> 1.40>1.3>1.10->1.0> 1.0-trending down today * baseline creatinine 0.90 * continue trend * patient received IV contrast with CT of the abdomen and pelvis initially * avoid nephrotoxic medications RESOLVED (5) Hyponatremia: Code(s): E87.1 - Hypo-osmolality and hyponatremia Status: Acute Assessment and Plan: * sodium 133>134>136>136>135>134>134 * continue to trend * Stable, not symptomatic RESOLVED (6) Splenic infarct: Code(s): D73.5 - Infarction of spleen Status: Acute Assessment and Plan: * CT of the abdomen and pelvis showed splenic infarct which may be subacute * will need to be re-scanned once creatinine normalizes * Hematology following 02/02 * Creatinine down to 1.0 which is her baseline, we will go ahead and repeat CT of the abdomen and pelvis to assess splenic infarct * Hematology following 02/03 * Spoke with Dr. Marie (Oncology) who suggests another CT in 2 weeks to reassess. There is no intervention for this. 02/06/24: * clear by Hematology-Oncology for discharge follow-up CT scan in 2 weeks for reassessment (7) Congestive heart failure: Code(s): I50.9 - Heart failure, unspecified Status: Chronic Assessment and Plan: * does not appear in exacerbation * no echo to review * continue metoprolol * Will restart lasix * CT fo the abdomen and pelvis showing worsened small pericardial effusion (8) Lesion of pancreas: Code(s): K86.9 - Disease of pancreas, unspecified Status: Acute Assessment and Plan: * CT of the abdomen and pelvis showed a 12 mm cystic lesion of the pancreas * will need MRI with and without contrast in 2 years to re-evaluate * Will get MRI of the pancreas today 02/03 * CT of the abdomen and pelvis shown 14mm cystic lesion of the pancreas * MRI of the abdomen and pelvis shown 12 mm unilocular simple appearing cystic lesion at the body of the pancreas * Lipase was normal on 01/28/24 --28 U/L * No history of pancreatitis (9) Kidney mass: Code(s): N28.89 - Other specified disorders of kidney and ureter Status: Acute Assessment and Plan: * CT of the abdomen and pelvis shown a 2.3 cm right kidney mass, which may be a hemorrhagic cyst, but renal cell carcinoma cannot be excluded. * will need a repeat Abdomen CT without and with contrast however we will have to wait until her RUSSELL resolve 02/02 * Will get CT of the abdomen and pelvis with and without contrast today to reassess 02/03 * CT of the abdomen/pelvis shown 2.3 cm hemorrhagic cyst in the right kidney * MRI shown 2.2 cm right renal lesion with increased T1 and very low T2 signal which is most consistent with a proteinaceous/hemorrhagic cyst * Nephrology consulted for evaluation of cyst 02/04 * Nephrology consulted, appreciate their input (10) Cirrhosis: Code(s): K74.60 - Unspecified cirrhosis of liver Status: Acute Assessment and Plan: * CT of the abdomen pelvis showing cirrhosis of the liver * liver enzymes normal * Hepatitis panel negative (11) Hypertension: Code(s): I10 - Essential (primary) hypertension Status: Chronic Assessment and Plan: * Will restart Losartan today * continue metoprolol (12) Burst fracture of T12 vertebra: Code(s): S22.081A - Stable burst fracture of T11-T12 vertebra, initial encounter for closed fracture Status: Acute Assessment and Plan: * CT scan of the abdomen and pelvis revealed a T12 burst fracture which appears to be new as it was not noted on CT scan prior. * Neurosurgery consulted * Likely will need TLSO brace * Continue pain control * Continue Lidocaine patch * Continue flexeril Plan Code status: Full code per patient DVT prophylaxis: Lovenox Stress ulcer prophylaxis: Na PT/OT notes: PT/OT discharge to home Disposition: Patient continues admission for treatment abscess of the sigmoid colon and C diff colitis PT/OT evaluation recommended home patient did not want any PT/OT. Patient's diet has been advanced if she tolerates overnight plan is to return home Time Spent With Patient Time with patient: 15 - 25 minutes Subjective Date/time seen: 02/06/24 16:01 Interval history: Patient is a 73-year-old female admitted for evaluation and treatment abscess of the sigmoid colon, C diff colitis, urinary tract infection, in burst fracture, 02/06/2024: Assumed Care Patient tolerating oral intake but still with mild nausea. Patient ambulates to bathroom but did report mild dizziness and weakness. Labs reviewed and vitals stable. Plan for discharge tomorrow if no events overnight and tolerates her advanced diet. remains afebrile and normal WBCs, diarrhea has also improved. Review of Systems Review of Systems: 12 systems were reviewed and are negativ e except for as per HPI. All systems reviewed & are unremarkable except as noted in HPI and below Exam Narrative: General: In no acute distress, well nourished Cardiac: Normal S1 and S2. Respiratory: Lungs clear to auscultation, no adventitious lung sounds Gastrointestinal: soft, mildly distended, non-tender, normoactive bowel sounds. : voiding without difficulty. Spine: Lower lumbar pain, TLSO brace in place Extremities: moves all extremities well, no edema Neuro: Alert and oriented x4 Objective Data Vital Signs Vital Signs: Vital Signs - 24 hr 02/05/24 20:00 02/05/24 20:07 02/06/24 07:04 Temperature 97.7 F 97.7 F Pulse Rate 91 91 82 Respiratory Rate 16 16 16 Blood Pressure 156/62 H 150/55 H Pulse Oximetry 99 99 97 Oxygen Delivery Room Air 02/06/24 08:00 02/06/24 08:15 02/06/24 15:17 Temperature 97.4 F L Pulse Rate 7 L 75 Respiratory Rate 16 Blood Pressure 140/32 L Pulse Oximetry 97 97 Oxygen Delivery Room Air Intake/Output Intake/Output: Intake & Output 02/03/24 02/04/24 02/05/24 02/06/24 23:59 23:59 23:59 23:59 Intake Total 560 840 720 780 Output Total 2 100 Balance 558 840 620 780 Meds/Results Medications: Active Medications Generic Name Dose Route Start Last Admin Trade Name Freq PRN Reason Stop Dose Admin Acetaminophen 650 mg 02/01/24 11:50 02/02/24 20:10 Acetaminophen 325 Mg Tablet PO 650 mg Q6H PRN Administration Mild Pain (1-3) or Fever Hydrocodone Bitart/Acetaminophen 2 tab 01/29/24 16:55 02/06/24 13:10 Hydrocodone/Acetaminophen (*Crx) 5-325 Mg Tablet PO 2 tab Q6H PRN Administration Pain Rated 7-10 Amoxicillin/Clavulanate Potassium 1 tablet 02/02/24 11:00 02/06/24 08:15 Amoxicillin/Clavulanate K 875-125 Mg Tab PO 1 tablet Q12HR TERI Administration Cyclobenzaprine HCl 5 mg 02/02/24 14:00 02/06/24 13:10 Cyclobenzaprine Hcl 5 Mg Tablet PO 5 mg Q8HR TERI Administration Diphenhydramine HCl 25 mg 01/29/24 15:23 01/29/24 16:03 Diphenhydramine Hcl Cap 25 Mg Capsule PO 25 mg Q6H PRN Administration Itching Enoxaparin Sodium 40 mg 02/02/24 09:00 02/06/24 08:15 Enoxaparin 40 Mg/0.4 Ml Syringe SUB-Q 40 mg DAILY TERI Administration Fidaxomicin 200 mg 01/29/24 21:00 02/06/24 08:15 Fidaxomicin 200 Mg Tablet PO 02/08/24 20:59 200 mg Q12HR TERI Administration Furosemide 20 mg 01/29/24 09:00 02/06/24 08:15 Furosemide 20 Mg Tablet PO 20 mg DAILY TERI Administration Lidocaine 1 patch 02/02/24 11:25 02/06/24 08:15 Lidocaine 5% Patch TRANSDERM 1 patch DAILY TERI Administration Losartan Potassium 50 mg 01/29/24 09:00 02/06/24 08:15 Losartan Potassium 50 Mg Tablet PO 50 mg DAILY TERI Administration Metoprolol Succinate 50 mg 01/29/24 09:00 02/06/24 08:15 Metoprolol Succinate Ext Rel 50 Mg Tabcr PO 50 mg DAILY TERI Administration Nicotine 1 patch 01/29/24 09:00 02/06/24 08:16 Nicotine (*Pbkc) 14 Mg Patch TRANSDERM 1 patch DAILY TERI Administration Ondansetron HCl 4 mg 01/28/24 22:26 02/06/24 13:14 Ondansetron Inj 4 Mg/2 Ml Vial IV PUSH 4 mg Q6H PRN Administration Nausea And Vomiting Potassium Chloride 20 meq 01/29/24 09:00 02/06/24 08:17 Potassium Chloride 20 Meq Er Tablet PO 20 meq BID TERI Administration Rosuvastatin Calcium 20 mg 01/29/24 09:00 02/06/24 08:17 Rosuvastatin 20 Mg Tablet PO 20 mg DAILY TERI Administration Radiology Results: ITS Impressions Abdomen MRI 02/03/24 13:00 IMPRESSION: 1. Cirrhosis. 2. Mild dilation of the common bile duct to 8 mm with no intrapedicular ductal dilation or choledocholithiasis likely related to prior cholecystectomy. 3. 12 mm unilocular simple appearing cystic lesion at the body of the pancreas. The differential diagnosis includes pseudocyst, intraductal papillary mucinous neoplasm (IPMN) and significantly less likely mucinous cystic neoplasm (MCN),, serous cystadenoma and neuroendocrine tumor. Correlate for history of pancreatitis. 4. Anasarca with small bilateral pleural effusions, small amount of ascites and excessive mesenteric, retroperitoneal and body wall edema. 5. Small likely complex pericardial effusion with increased T1 and decreased T2 signal consistent with either hemorrhagic or proteinaceous fluid. Correlate cli nically for pericarditis. 6. Acute T12 superior endplate compression fracture with 10% central vertebral body height loss, new since CT from one week prior. 7. 2.2 cm right renal lesion with increased T1 and very low T2 signal which be most consistent with a proteinaceous/hemorrhagic cyst. 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 2. Cirrhosis of the liver. 3. 2.3 cm hemorrhagic cyst in right kidney. 4. Small pleural effusions. 5. 14 mm cystic lesion of the pancreas. The differential diagnosis includes pseudocyst, intraductal papillary mucinous neoplasm (IPMN), mucinous cystic neoplasm (MCN), serous cystadenoma, and neuroendocrine tumor. Consider abdomen MRI without and with contrast in 2 years. 6. Geographic area of subtle hypoenhancement in the spleen with interval improvement, consistent with subacute infarct. 7. Small volume of ascites. 8. Acute T12 burst fracture, new from 01/28/2024. 9. Worsened small pericardial effusion. Labs Labs: Laboratory Results - last 24 hr 02/06/24 05:29 WBC 5.2 RBC 3.18 L Hgb 9.8 L Hct 29.3 L MCV 92.1 MCH 30.8 MCHC 33.4 RDW 12.8 Plt Count 147 L MPV 10.4 Immature Gran % (Auto) 1.3 H Neut % (Auto) 67.6 Lymph % (Auto) 20.8 Curry % (Auto) 7.8 Eos % (Auto) 1.9 Baso % (Auto) 0.6 Lymph # (Auto) 1.09 Curry # (Auto) 0.4 Eos # (Auto) 0.1 Baso # (Auto) 0.0 Abs Immat Gran (auto) 0.07 H Absolute Neuts (auto) 3.5 Absolute Nucleated RBC 0.000 Nucleated RBC % 0.0 Sodium 133 L Potassium 4.3 Chloride 102 Carbon Dioxide 31 H Anion Gap 0 L BUN 6 L Creatinine 1.10 H Estim Creat Clear Calc 34 Estimated GFR 49 L Glucose 104 Calcium 8.7 Total Bilirubin 0.5 AST 25 ALT 12 Alkaline Phosphatase 49 Total Protein 7.0 Albumin 3.2 L Quality VTE Prophylaxis VTE prophylaxis: mechanical ordered and pharmacologic ordered -Patient's previous records reviewed on admission -ER notes reviewed in detail on admission -discussed all findings and current treatment plan with patient/Family/POA -Consultations reviewed for recommendations -Patient's disposition for safe discharge discussed with rifle case repairer Dictation performed by [employer] direct speech recognition software, therefore video editing intern variants and typographical errors may occur. Hospitalist MIPS Advance Care Plan I have confirmed that the patient's Advanced Care Plan is present, code status is documented, or surrogate decision maker is listed in patient medical record.: Yes Medication Reconciliation I have utilized all available resources to obtain, update and review the patients current medications (includes all prescriptions, OTC, herbals, cannabis, and nutritional supplements).: Yes The patient is not eligible for med reconciliation; the patient is in a emergent medical situation where delaying treatment would jeopardize the patients health .: No
[2024-02-06 20:00] VITALS: PULSE 75; RESP 16; O2SAT 97
[2024-02-06 21:59] VITALS: BP 121/34; PULSE 83; RESP 18; TEMP 37; O2SAT 97
[2024-02-07] MEDS: ONDANSETRON INJ 4 MG/2 ML VIAL IV PUSH ×2 (02:17→13:19)
[2024-02-07] MEDS: HYDROcodone/acetaminophen (*CRX) 5-325 MG TABLET 2 TAB PO ×2 (02:17→07:50)
[2024-02-07 05:54] LABS: Basophils Percent Auto 0.3 % (0.2-1.2); Eosinophils Absolute Auto 0.1 K/mm3 (0-0.3); Eosinophils Percent Auto 1.6 % (0-4.4); Hematocrit 30.8 % (37.0-47.0); Hemoglobin 10.1 g/dL (12.0-15.0); Immature Granulocyte Absolute 0.05 K/mm3 (0.00-0.031); Immature Granulocyte Percent A 0.7 % (0-0.5); Lymphocytes Absolute Auto 0.91 K/mm3 (0.9-3.2); Lymphocytes Percent Auto 12.9 % (18.3-44.2); Mean Corpuscular HGB Conc 32.8 g/dl (32-36); Mean Corpuscular Hemoglobin 30.8 pg (26-34); Mean Corpuscular Volume 93.9 fl (80-100); Mean Platelet Volume 10.8 fl (7.4-10.4); Monocytes Absolute Auto 0.5 K/mm3 (0.1-0.6); Monocytes Percent Auto 7.5 % (2.6-8.5); Neutrophils Absolute Auto 5.5 K/mm3 (1.3-6.7); Platelet Count Result 150 k/mm3 (150-375); Red Blood Count 3.28 M/mm3 (4.2-5.4); Red Cell Distribution Width 13.1 % (11.5-14.5); White Blood Count 7.1 K/mm3 (4.5-10.0)
[2024-02-07] MEDS: CYCLOBENZAPRINE HCL 5 MG TABLET PO (05:55)
[2024-02-07 05:59] LABS: Alanine Aminotransferase 11 U/L (6-35); Albumin Level 3.4 g/dL (3.5-5.1); Alkaline Phosphatase 52 U/L (38-126); Anion Gap 2 mmol/L (4-12); Aspartate Amino Transferase 24 U/L (14-36); Bilirubin,Total 0.5 mg/dL (0.2-1.3); Blood Urea Nitrogen 8 mg/dL (7-17); Calcium 8.9 mg/dL (8.4-10.2); Carbon Dioxide 29 mmol/L (22-30); Chloride 101 mmol/L (98-107); Estimated CRCL calculation 29 ml/min; Estimated Glomerular Filt Rate 40; Glucose 112 mg/dL (65-110); Potassium 4.3 mmol/L (3.4-5.0); Sodium 132 mmol/L (137-145)
[2024-02-07 06:00] VITALS: BP 128/53; PULSE 88; RESP 18; TEMP 36.8; O2SAT 97
[2024-02-07] MEDS: LIDOCAINE 5% PATCH 1 PATCH TRANSDERM (07:51)
[2024-02-07] MEDS: NICOTINE (*PBKC) 14 MG PATCH 1 PATCH TRANSDERM (07:51)
[2024-02-07 08:00] VITALS: O2SAT 97
--- NOTE | 2024-02-07 08:56 | PC.NURSE ---
[id number] Isabel Hernandez DIGITAL MARKETING PROJECT MANAGER notified of c/o abd pain, nausea , and bloating.
[2024-02-07] MEDS: ENOXAPARIN 40 MG/0.4 ML SYRINGE SUB-Q (11:24)
[2024-02-07] MEDS: FIDAXOMICIN 200 MG TABLET PO (11:24)
[2024-02-07] MEDS: AMOXICILLIN/CLAVULANATE K 875-125 MG TAB 1 TABLET PO (11:24)
[2024-02-07] MEDS: FUROSEMIDE 20 MG TABLET PO (11:25)
[2024-02-07] MEDS: ROSUVASTATIN 20 MG TABLET PO (11:25)
[2024-02-07] MEDS: POTASSIUM CHLORIDE 20 MEQ ER TABLET PO (11:25)
[2024-02-07 11:26] VITALS: PULSE 78
[2024-02-07] MEDS: LOSARTAN POTASSIUM 50 MG TABLET PO (11:26)
[2024-02-07] MEDS: METOPROLOL SUCCINATE EXT REL 50 MG TABCR PO (11:26)
--- NOTE | 2024-02-07 14:12 | P.DS_ITS ---
DS: Admitting Diagnosis Discharge Date 02/07/2024 Admitting Diagnosis Abscess of the sigmoid colon DS: Discharge Diagnosis Discharge Diagnosis (1) Abscess of sigmoid colon: Code(s): K63.0 - Abscess of intestine Status: Acute (2) C. difficile colitis: Code(s): A04.72 - Enterocolitis due to Clostridium difficile, not specified as recurrent Status: Acute (3) UTI (urinary tract infection): Code(s): N39.0 - Urinary tract infection, site not specified Status: Acute (4) RUSSELL (acute kidney injury): Code(s): N17.9 - Acute kidney failure, unspecified Status: Acute (5) Hyponatremia: Code(s): E87.1 - Hypo-osmolality and hyponatremia Status: Acute (6) Splenic infarct: Code(s): D73.5 - Infarction of spleen Status: Acute (7) Congestive heart failure: Code(s): I50.9 - Heart failure, unspecified Status: Chronic (8) Lesion of pancreas: Code(s): K86.9 - Disease of pancreas, unspecified Status: Acute (9) Kidney mass: Code(s): N28.89 - Other specified disorders of kidney and ureter Status: Acute (10) Cirrhosis: Code(s): K74.60 - Unspecified cirrhosis of liver Status: Acute (11) Hypertension: Code(s): I10 - Essential (primary) hypertension Status: Chronic Assessment and Plan: * Will restart Losartan today * continue metoprolol (12) Burst fracture of T12 vertebra: Code(s): S22.081A - Stable burst fracture of T11-T12 vertebra, initial encounter for closed fracture Status: Acute DS: Summary Hospital Course Reason for hospitalization: abscess of the sigmoid colon Hospital Course: This is a 73-year-old female who presented to the hospital on 01/28/2024 with complaints of lower abdominal pain. Workup in the hospital included an abdomen/pelvis CT which 2.8 x 2.3 x 3.2 cm vernon sigmoid abscess abutting the vagina, cirrhosis of the liver, splenic infarct which may be subacute, 12 mm cystic lesion of the pancreas, 2.3 cm right kidney mass which may be a cyst-- recommending further imaging. Initial labs showed a white blood cell count 11.3, hemoglobin 11.9, platelet count 123, sodium 133, creatinine 0.50, EGFR 34. UA was obtained which showed a cloudy urine appearance, urine specific gravity 1.040, 3+ urine protein, 3+ urine blood, positive nitrate, 1+ leukocytes, 3-5 urine RBC, 11-20 urine WBC, 4+ urine bacteria. Urine and blood cultures were obtained and are pending. EKG showed sinus rhythm with a rate of 65, QTC 433. She was given a dose of Zofran, morphine, 1 L of normal saline, and Zosyn while in the ED. General surgery was consulted.. general surgery opted for conservative care and to advance diet as tolerated and monitor blood culture growth. During admission patient was also found to have C diff colitis and was started on Dificid. patient also had some mild RUSSELL which resolved with IV fluids. she continued to improve with IV antibiotics and we were able to ad ruth diet. to was also found to have kidney mass which at that time she had a follow-up CT abdomen with contrast once RUSSELL resolved which showed a splenic infarct hematology was consulted no intervention but would need follow-up CT scans which they would follow outpatient. patient was also found to have lesion noted on pancreas it was recommended a follow-up MRI without contrast in 2 years for re-evaluation. overall patient had improvement remained afebrile and leukocytosis normalized patient was able to tolerate low-fiber diet and was cleared by General surgery their standpoint. patient was seen assessed a discharge in no acute distress no abdominal pain was passing gas and had BMs. was ambulating on own and patient was discharged home Time Spent with Patient Time attestation: Total time spent providing and/or coordinating discharge services: Exam Narrative: General: In no acute distress, well nourished Cardiac: Normal S1 and S2. Respiratory: Lungs clear to auscultation, no adventitious lung sounds Gastrointestinal: soft, mildly distended, non-tender, normoactive bowel sounds. : voiding without difficulty. Spine: Lower lumbar pain, TLSO brace in place Extremities: moves all extremities well, no edema Neuro: Alert and oriented x4 DS: Data Data Completed and Pending Labs on day of discharge: Labs from last 24 hours 02/07/24 05:10 WBC 7.1 RBC 3.28 L Hgb 10.1 L Hct 30.8 L MCV 93.9 MCH 30.8 MCHC 32.8 RDW 13.1 Plt Count 150 MPV 10.8 H Immature Gran % (Auto) 0.7 H Neut % (Auto) 77.0 H Lymph % (Auto) 12.9 L Dare % (Auto) 7.5 Eos % (Auto) 1.6 Baso % (Auto) 0.3 Lymph # (Auto) 0.91 Dare # (Auto) 0.5 Eos # (Auto) 0.1 Baso # (Auto) 0.0 Abs Immat Gran (auto) 0.05 H Absolute Neuts (auto) 5.5 Absolute Nucleated RBC 0.000 Nucleated RBC % 0.0 Sodium 132 L Potassium 4.3 Chloride 101 Carbon Dioxide 29 Anion Gap 2 L BUN 8 Creatinine 1.30 H Estim Creat Clear Calc 29 Estimated GFR 40 L Glucose 112 H Calcium 8.9 Total Bilirubin 0.5 AST 24 ALT 11 Alkaline Phosphatase 52 Total Protein 7.0 Albumin 3.4 L Discharge Plan Discharge Attending physician on discharge: Avel Esqueda Consulting providers: Pao Yusuf; Tiana Marie; Kosta Valencia; Katie Goyal; Jane Govea; Milagros Patiño; Soraya Dempsey; Shelly Tellez; Russ Guzman; Isaiah Braswell Paul Discharging Clinician: Komal Hernandez Anticipated Discharge Date/Time: 02/05/24 08:54 Patient Disposition: Home, Self-Care Activity: as tolerated Diet: as tolerated and low fiber Discharge Instructions: Abscess of the sigmoid colon * Complete antibiotic therapy as indicated even if feeling better * low fiber diet advance as tolerated C diff colitis * complete oral Dificid as indicated Splenic infarction * follow-up with Hematology-Oncology for discharge follow-up CT scan in 2 weeks for reassessment order provided Burst Fracture [id number] * Use TSLO brace with activity and ambulation may remove at rest and when sleeping * Prescription for pain medication, lidocaine patch, and flexeril How can you care for yourself at home? ? Keep track of any new symptoms or changes in your symptoms. ? Rest until you feel better. ? Be safe with medicines. Take your medicines exactly as prescribed. Call your doctor if you think you are having a problem with your medicine. ? Do not drive after taking a prescription pain medicine. ? Ensure to follow-up with primary care physician as indicated and provide updated medication list provided to you at discharge. When should you call for help? Call 911 anytime you think you may need emergency care. For example, call if: ? You passed out (lost consciousness). Call your doctor now or seek immediate medical care if: ? You have new symptoms like fever, difficulty breathing, Chest pain, vomiting, or rash. ? You have new or different pain. ? You are confused and are having trouble thinking clearly. ? Your symptoms are getting worse. Watch closely for changes in your health, and be sure to contact your doctor if: ? You do not get better as expected. Patient Instructions: Antibiotic Form, Heart Failure (DC), Vertebral Compression Fracture (DC), Pain Management (DC), C. Diff (Clostridioides Difficile) Infection (DC), Clamshell Brace (DC), Splenic Infarction (GEN) Patient Language: [place] Stand Alone Forms: General Discharge Information Follow-up/Referrals: Tiana Marie MD [Physician] - 2 Weeks Kosta Valencia MD [Physician] - Call for Appointment Martha,Miracle Varela MD [Primary Care Provider] - 2 Weeks Discharge Medications: New amoxicillin-pot clavulanate 875-125 mg tablet 1 tablet PO Q12H Qty: 8 0RF Dificid 200 mg tablet 200 mg PO Q12H Qty: 2 0RF cyclobenzaprine 10 mg tablet 10 mg PO TID PRN (Reason: muscle spasm) Qty: 30 0RF hydrocodone-acetaminophen 5-325 mg Tablet 1 tablet PO Q6H PRN (Reason: Pain Rated 7-10) Qty: 20 0RF lidocaine [Lidoderm] 5 % Adhesive Patch,Medicated 1 patch transdermal DAILY Qty: 15 0RF Continued losartan 50 mg tablet 50 mg PO DAILY metoprolol succinate 50 mg tablet extended release 24 hr 50 mg PO DAILY potassium chloride [K-Tab] 20 mEq Tablet Extended Release 20 meq PO BID Qty: 60 0RF furosemide 40 mg tablet 20 mg PO DAILY Qty: 30 0RF rosuvastatin 20 mg tablet 20 mg PO DAILY Other Ambulatory Orders: CT abdomen pelvis wo con (Routine) Timeframe: 2 Weeks Location: Determined by Patient Ordered By: Komal Hernandez Date of admission: 01/31/24 10:29 Primary Care Provider: MarthaMiracle Admitting Provider: Avel Esqueda Attending physician on admission: Komal Hernandez Condition: Stable Quality VTE Prophylaxis VTE prophylaxis: mechanical ordered and pharmacologic ordered Hospitalist MIPS Heart Failure (Exclusion) Patient has history of Heart Transplant or Left Ventricular Assistive Device?: No IF YES, STOP HERE Heart Failure (Qualifier) Patient has current or prior documentation of LVEF less than or equal to 40%, or mod/servere depressed LVSF?: No IF NO, STOP HERE
== END 2024-02-07 15:18 | disposition home or self-care (01) | DRG 372 ==
LOC: ANHED 15:18 → ANH2MED 18:02
PROVIDERS: Nurse Practitioner Acute Care; Nurse Practitioner Family; Nurse Practitioner Gerontology; Student in an Organized Health Care Education/Training Program; Admitting Provider Internal Medicine; Emergency Provider Emergency Medicine; PCP Family Medicine; Visit Provider Nurse Practitioner Family
DX: K63.0 Abscess of intestine (principal); A04.72 Enterocolitis due to Clostridium difficile, not specified as recurrent; S22.081A Stable burst fracture of T11-T12 vertebra, initial encounter for closed fracture; N39.0 Urinary tract infection, site not specified; N17.9 Acute kidney failure, unspecified; E87.1 Hypo-osmolality and hyponatremia; B96.20 Unspecified Escherichia coli [E. coli] as the cause of diseases classified elsewhere; D73.5 Infarction of spleen; D64.9 Anemia, unspecified; D47.2 Monoclonal gammopathy; E78.5 Hyperlipidemia, unspecified; F41.9 Anxiety disorder, unspecified; F17.210 Nicotine dependence, cigarettes, uncomplicated; F12.90 Cannabis use, unspecified, uncomplicated; I11.0 Hypertensive heart disease with heart failure; X50.0XXA Overexertion from strenuous movement or load, initial encounter; I50.9 Heart failure, unspecified; J44.9 Chronic obstructive pulmonary disease, unspecified; K74.60 Unspecified cirrhosis of liver; K86.9 Disease of pancreas, unspecified; M19.90 Unspecified osteoarthritis, unspecified site; N28.1 Cyst of kidney, acquired; N28.89 Other specified disorders of kidney and ureter; Z90.49 Acquired absence of other specified parts of digestive tract
CPT/HCPCS: 36415; 74176; 74177; 74178; 74181; 80048; 80053; 80074; 81001; 83690; 83735; 84100; 85025; 85027; 85055; 85730; 87040; 87086; 87186; 87493; 96361; 96365; 96372; 96375; 96376; 97161; 97165; 99285; A9270; G0378; J1650; J2270; J2405; J2543; J7030; J7040; Q9967